=== PATIENT | male | born 1980 | race Caucasian/White ===

== ENCOUNTER 2024-03-02 00:15 | Inpatient (IN) | payer OTHER ==
[2024-03-02] MEDS: LORazepam 2 MG/ML INJ IV STA ×3 (04:24→08:00)
[2024-03-02] MEDS: SODIUM CHLORIDE 0.9% 1,000 ML IV ONE (04:24)
[2024-03-02 05:03] LABS: ALT 85 U/L (4-49); AST 156 U/L (17-59); African American GFR (CKD) >90 (>60 ml/min/1.73 sqM); Albumin 4.2 g/dL (3.5-5.0); Alkaline Phosphatase 60 U/L (38-126); Anion Gap 7 mmol/L; Blood Urea Nitrogen 9 mg/dL (9-20); Calcium 8.7 mg/dL (8.4-10.2); Carbon Dioxide 27 mmol/L (22-30); Chloride 99 mmol/L (98-107); Glucose 90 mg/dL (74-99); Non-African American GFR(CKD) >90 (>60 ml/min/1.73 sqM); Potassium 3.1 mmol/L (3.5-5.1); Sodium 133 mmol/L (137-145); Total Bilirubin 1.3 mg/dL (0.2-1.3); Total Protein 7.1 g/dL (6.3-8.2)
[2024-03-02 05:22] LABS: Basophils % (A) 1 %; Eosinophils % (A) 1 %; HCT 36.9 % (39.0-53.0); HGB 12.3 gm/dL (13.0-17.5); Lymphocytes # (A) 1.2 k/uL (1.0-4.8); Lymphocytes % (A) 35 %; MCH 30.5 pg (25.0-35.0); MCHC 33.4 g/dL (31.0-37.0); MCV 91.4 fL (80.0-100.0); Mean Platelet Volume 11.3; Monocytes # (A) 0.4 k/uL (0-1.0); Monocytes % (A) 12 %; Neutrophils # (A) 1.8 k/uL (1.3-7.7); Neutrophils % (A) 49 %; RBC 4.04 m/uL (4.30-5.90); RDW 15.8 % (11.5-15.5); WBC 3.6 k/uL (3.8-10.6)
[2024-03-02 05:57] LABS: Platelet Count 64 k/uL (150-450); Tear Drop Cells Present
--- NOTE | 2024-03-02 06:42 | ED ---
General Adult HPI - General Chief complaint: Psychiatric Symptoms Stated complaint: Hallucinations Time Seen by Provider: 03/02/24 02:44 Source: patient Mode of arrival: EMS Limitations: no limitations - History of Present Illness Initial comments: Patient is a 43-year-old man who is sent here to from [facility] to have evaluation for hallucinations. The patient is reportedly talking to people who are not present in the room. He reportedly saw a bear who he felt was attacking staff at the other facility. The patient had been drinking up to 16 beers a day and also a pint of alcohol. He is now day 3 after stopping drinking. The patient had reportedly been given 12 mg of Ativan over the course of the day but continued to have hallucinations. On arrival here the patient denying headache. No chest pain or dyspnea. No tarry or dark stools. Onset/Timin -: days(s) Severity scale (1-10): 0 Consistency: intermittent Improves with: none Worsens with: none Associated Symptoms: denies other symptoms Treatments Prior to Arrival: other (Ativan) - Related Data Home Medications Medication Instructions Recorded Confirmed Acetaminophen Tab [Tylenol] 650 mg PO Q4H PRN 03/02/24 03/02/24 Calcium, Magnesium, Zinc, With 1 tab PO TID PRN 03/02/24 03/02/24 Vitamin D3 Chlorpheniramine Maleate 4 mg PO Q4H PRN 03/02/24 03/02/24 [Chlor-Trimeton] Cholecalciferol (Vitamin D3) 1,250 mcg PO Q7D 03/02/24 03/02/24 [Decara (50,000 Iu)] Hyoscyamine Sulfate [Levsin] 0.125 mg PO QID PRN 03/02/24 03/02/24 Ibuprofen [Motrin Ib] 600 mg PO Q6H PRN 03/02/24 03/02/24 Loperamide HCl [Imodium A-D] 4 mg PO QID PRN MDD 16 mg 03/02/24 03/02/24 Melatonin 10 mg PO HS 03/02/24 03/02/24 Omeprazole 20 mg PO BID PRN 03/02/24 03/02/24 Primidone [Mysoline] 50 mg PO DAILY 03/02/24 03/02/24 SUMAtriptan succinate [Imitrex] 100 mg PO BID PRN MDD 200 mg 03/02/24 03/02/24 levETIRAcetam [Keppra] 750 mg PO BID 03/02/24 03/02/24 ondansetron HCL [Zofran] 8 mg PO Q6H PRN 03/02/24 03/02/24 Previous Rx's Medication Instructions Recorded Escitalopram [Lexapro] 10 mg PO DAILY #30 tab 03/12/24 Metoprolol Tartrate [Lopressor] 25 mg PO BID #60 tab 03/12/24 Nicotine 21Mg/24Hr Patch [Habitrol] 1 patch TRANSDERM DAILY patch 03/12/24 QUEtiapine [SEROquel] 25 mg PO HS #30 tab 03/12/24 Thiamine [Vitamin B-1] 100 mg PO BID #60 tab 03/12/24 cloNIDine HCL [Catapres] 0.1 mg PO BID #60 tab 03/12/24 Allergies Allergy/AdvReac Type Severity Reaction Status Date / Time No Known Allergies Allergy Verified 03/02/24 09:16 Review of Systems ROS Statement: Those systems with pertinent positive or pertinent negative responses have been documented in the HPI. ROS Other: All systems not noted in ROS Statement are negative. Constitutional: Denies: fever, chills, weakness Eyes: Denies: vision change Respiratory: Denies: cough, dyspnea Cardiovascular: Denies: chest pain, palpitations, edema, syncope Gastrointestinal: Denies: abdominal pain, vomiting, diarrhea, melena Genitourinary: Denies: dysuria, hematuria Musculoskeletal: Denies: back pain Skin: Denies: rash Neurological: Reports: confusion. Denies: headache, weakness Psychiatric: Reports: auditory hallucinations, visual hallucinations General Exam Limitations: no limitations General appearance: alert, in no apparent distress Head exam: Present: atraumatic, normocephalic Eye exam: Present: normal appearance, EOMI. Absent: scleral icterus, conjunctival injection ENT exam: Present: normal oropharynx Neck exam: Present: normal inspection Respiratory exam: Present: normal lung sounds bilaterally. Absent: respiratory distress, wheezes, rales, rhonchi, stridor, accessory muscle use Cardiovascular Exam: Present: regular rate, normal rhythm, normal heart sounds. Absent: diastolic murmur, rubs, gallop GI/Abdominal exam: Present: soft. Absent: distended, tenderness, guarding, rebound, rigid, mass Extremities exam: Present: normal inspection, normal capillary refill. Absent: pedal edema, calf tenderness Back exam: Present: normal inspection Neurological exam: Present: alert. Absent: motor sensory deficit Skin exam: Present: warm, dry, intact, normal color. Absent: rash Course Vital Signs 03/02/24 03/02/24 03/02/24 00:17 05:12 08:00 Temperature 98.4 F Pulse Rate 84 59 L 69 Respiratory 18 22 17 Rate Blood Pressure 142/104 155/89 133/93 O2 Sat by Pulse 98 98 97 Oximetry Medical Decision Making - Medical Decision Making Patient is 43-year-old man who is here with alcohol withdrawal and early delirium tremens. He is given Ativan on arrival. I did reassess the patient and he is continue to have hallucinations and is tremulous and hypertensive. In light of this patient will be admitted to have further medical management of delirium tremens. Was pt. sent in by a medical professional or institution (, PA, NEUROSURGERY SPINE PHYSICIAN, urgent care, hospital, or senior care...) When possible be specific @ -Yes patient is sent from [facility] to have evaluation of DTs symptoms Did you speak to anyone other than the patient for history (EMS, parent, family, police, friend...)? What history was obtained from this source @ -[No] Did you review nursing and triage notes (agree or disagree)? Why? @ -[I reviewed and agree with nursing and triage notes] Were old charts reviewed (outside hosp., previous admission, EMS record, old EKG, old radiological studies, urgent care reports/EKG's, senior care records)? Report findings @ -[No old charts were reviewed] Differential Diagnosis (chest pain, altered mental status, abdominal pain women, abdominal pain men, vaginal bleeding, weakness, fever, dyspnea, syncope, headache, dizziness, GI bleed, back pain, seizure, CVA, palpatations, mental health, musculoskeletal)? @ -[Differential Mental Health Depression, anxiety, bipolar, psychosis, schizophrenia, borderline personality, situational depression, adjustment disorder, behavioral disorder, brain tumor, malingering, substance abuse, encephalopathy, medication reaction, dementia, hypothyroidism, degenerative neurologic disorder, lupus.... This is not meant to be all-inclusive list EKG interpreted by me (3pts min.). @ -[As above] X-rays interpreted by me (1pt min.). @ -[None done] CT interpreted by me (1pt min.). @ -[None done] U/S interpreted by me (1pt. min.). @ -[None done] What testing was considered but not performed or refused? (CT, X-rays, U/S, labs)? Why? @ -[None] What meds were considered but not given or refused? Why? @ -[None] Did you discuss the management of the patient with other professionals (pro fessionals i.e. , PA, NEUROSURGERY SPINE PHYSICIAN, lab, RT, psych nurse, social media assistant, dairy laboratory technician, teacher, fire prevention officer, manager case)? Give summary @ -[No] Was smoking cessation discussed for >3mins.? @ -[No] Was critical care preformed (if so, how long)? @ -[No] Were there social determinants of health that impacted care today? How? (Homelessness, low income, unemployed, alcoholism, drug addiction, transportation, low edu. Level, literacy, decrease access to med. care, skilled nursing, rehab)? @ -[No] Was there de-escalation of care discussed even if they declined (Discuss DNR or withdrawal of care, Hospice)? DNR status @ -[No] What co-morbidities impacted this encounter? (DM, HTN, Smoking, COPD, CAD, Cancer, CVA, ARF, Chemo, Hep., AIDS, mental health diagnosis, sleep apnea, morbid obesity)? @ -[None] Was patient admitted / discharged? Hospital course, mention meds given and route, prescriptions, significant lab abnormalities, going to OR and other pertinent info. @ -[As above Undiagnosed new problem with uncertain prognosis? @ -[No] Drug Therapy requiring intensive monitoring for toxicity (Heparin, Nitro, Insulin, Cardizem)? @ -[No] Were any procedures done? @ -[No] Diagnosis/symptom? @ -[Acute alcohol withdrawal Acute, or Chronic, or Acute on Chronic? @ -[Acute Uncomplicated (without systemic symptoms) or Complicated (systemic symptoms)? @ -[Complicated by mental status change Side effects of treatment? @ -[No] Exacerbation, Progression, or Severe Exacerbation? @ -[No] Poses a threat to life or bodily function? How? (Chest pain, [place], [place], pneumonia, PE, COPD, DKA, ARF, appy, cholecystitis, CVA, Diverticulitis, Homicidal, Suicidal, threat to staff... and all critical care pts) @ -[Yes there is significant risk of morbidity and mortality associated with delirium tremens - Lab Data Result diagrams: 03/12/24 07:10 03/12/24 07:10 Lab Results 03/02/24 03/02/24 03/02/24 Range/Units 04:27 04:27 04:27 WBC 3.6 L (3.8-10.6) k/uL RBC 4.04 L (4.30-5.90) m/uL Hgb 12.3 L (13.0-17.5) gm/dL Hct 36.9 L (39.0-53.0) % MCV 91.4 (80.0-100.0) fL MCH 30.5 (25.0-35.0) pg MCHC 33.4 (31.0-37.0) g/dL RDW 15.8 H (11.5-15.5) % Plt Count 64 L (150-450) k/uL MPV 11.3 Neutrophils % 49 % Lymphocytes % 35 % Monocytes % 12 % Eosinophils % 1 % Basophils % 1 % Neutrophils # 1.8 (1.3-7.7) k/uL Lymphocytes # 1.2 (1.0-4.8) k/uL Monocytes # 0.4 (0-1.0) k/uL Eosinophils # 0.0 (0-0.7) k/uL Basophils # 0.0 (0-0.2) k/uL Manual Slide Review Performed Tear Drop Cells Present Sodium 133 L (137-145) mmol/L Potassium 3.1 L (3.5-5.1) mmol/L Chloride 99 (98-107) mmol/L Carbon Dioxide 27 (22-30) mmol/L Anion Gap 7 mmol/L BUN 9 (9-20) mg/dL Creatinine 0.39 L (0.66-1.25) mg/dL Est GFR (CKD-EPI)AfAm >90 (>60 ml/min/1.73 sqM) Est GFR (CKD-EPI)NonAf >90 (>60 ml/min/1.73 sqM) Glucose 90 (74-99) mg/dL Plasma Lactic Acid Macho 0.7 (0.7-2.0) mmol/L Calcium 8.7 (8.4-10.2) mg/dL Magnesium 1.0 L (1.6-2.3) mg/dL Total Bilirubin 1.3 (0.2-1.3) mg/dL AST 156 H (17-59) U/L ALT 85 H (4-49) U/L Alkaline Phosphatase 60 (38-126) U/L Total Protein 7.1 (6.3-8.2) g/dL Albumin 4.2 (3.5-5.0) g/dL Disposition Clinical Impression: Alcohol withdrawal Disposition: ADMITTED IP TO THIS HOSP Condition: Fair Is patient prescribed a controlled substance at d/c from ED?: No
[2024-03-02] MEDS ORDERED: NALOXONE 0.4 MG/ML 1 ML VIAL IV PRN (06:53)
[2024-03-02] MEDS ORDERED: ONDANSETRON 4 MG/2 ML VIAL IVP PRN (06:53)
[2024-03-02] MEDS: LORazepam 2 MG/ML INJ IV PRN ×2 (10:18→13:23)
[2024-03-02] MEDS: MAGNESIUM SULFATE-D5W PMX 1 GM in DEXTROSE/WATER 1 100ML.BAG IVPB SCH (12:38)
--- NOTE | 2024-03-02 13:23 | P.HPIM ---
History of Present Illness H&P Date: 03/02/24 History of present illness; patient is 43 years old gentleman past medical history significant for alcohol abuse who was sent into ER from [place] for hallucinations. Patient drinks up to 16 beers per day and has been without alcohol for the last 3 days. Patient was being evaluated at [place] and was receiving Ativan in the ER. Patient has been seen talking to people who were not there. Patient also reported that there was a beer attacking a person. There was no complaint suicidal thoughts. No complaint of nausea, vomiting abdominal pain. Denies any chest pain or shortness of breath. Because of the symptoms, patient was transferred to ER Initial lab work done in the ER showed WBC 3.6, hemoglobin 12.3, platelet count 64, sodium 133, potassium 3.1, chloride 99, carbon is a 27, anion gap 7, creatinine 0.39, glucose 90, magnesium 1 Patient admitted to internal medicine service REVIEW OF SYSTEMS: Review of system cannot be obtained as patient is very confused PHYSICAL EXAMINATION: GENERAL: The patient is alert to self, gets agitated easily, not in any acute distress. Very shaky HEENT: Pupils are round and equally reacting to light. EOMI. No scleral icterus. No conjunctival pallor. Normocephalic, atraumatic. No pharyngeal erythema. No thyromegaly. CARDIOVASCULAR: S1 and S2 present. No murmurs, rubs, or gallops. PULMONARY: Chest is clear to auscultation, no wheezing or crackles. ABDOMEN: Soft, nontender, nondistended, normoactive bowel sounds. No palpable organomegaly. MUSCULOSKELETAL: No joint swelling or deformity. EXTREMITIES: No cyanosis, clubbing, or pedal edema. NEUROLOGICAL: Gross neurological examination did not reveal any focal deficits. SKIN: No rashes. Assessment and plan Alcohol abuse Impending DTs Alcohol detox Hypomagnesemia Hyponatremia Hypokalemia Thrombocytopenia Acute transaminitis Monitor vital signs Monitor CBC Monitor CMP Continue telemetry monitoring Replace potassium Replace magnesium Continue high-dose thiamine and folic acid Continue CIWA protocol Consult psychiatry If patient CIWA scores worsen outpatient requirement of Ativan increases drastically, will consult ICU for alcohol detox Labs and medication were reviewed.. Continue same treatment. Continue with symptomatic treatment. Resume home medication. Monitor labs and vitals. DVT and GI prophylaxis. Further recommendations as per clinical course of the patient Dictation was produced using dragon dictation software. please excuse any grammatical, word or spelling errors. Medications and Allergies Home Medications Medication Instructions Recorded Confirmed Type Acetaminophen Tab [Tylenol] 650 mg PO Q4H PRN 03/02/24 03/02/24 History Calcium, Magnesium, Zinc, With 1 tab PO TID PRN 03/02/24 03/02/24 History Vitamin D3 Chlorpheniramine Maleate 4 mg PO Q4H PRN 03/02/24 03/02/24 History [Chlor-Trimeton] Cholecalciferol (Vitamin D3) 1,250 mcg PO Q7D 03/02/24 03/02/24 History [Decara (50,000 Iu)] Escitalopram [Lexapro] 10 mg PO DAILY 03/02/24 03/02/24 History Hyoscyamine Sulfate [Levsin] 0.125 mg PO QID PRN 03/02/24 03/02/24 History Ibuprofen [Motrin Ib] 600 mg PO Q6H PRN 03/02/24 03/02/24 History LORazepam [Ativan] 1 - 2 mg PO DIRECTED 03/02/24 03/02/24 History Loperamide HCl [Imodium A-D] 4 mg PO QID PRN MDD 16 mg 03/02/24 03/02/24 History Melatonin 10 mg PO HS 03/02/24 03/02/24 History Omeprazole 20 mg PO BID PRN 03/02/24 03/02/24 History Primidone [Mysoline] 50 mg PO DAILY 03/02/24 03/02/24 History SUMAtriptan succinate [Imitrex] 100 mg PO BID PRN MDD 200 mg 03/02/24 03/02/24 History cloNIDine HCL [Catapres] 0.1 - 0.3 mg PO Q4H PRN 03/02/24 03/02/24 History levETIRAcetam [Keppra] 750 mg PO BID 03/02/24 03/02/24 History ondansetron HCL [Zofran] 8 mg PO Q6H PRN 03/02/24 03/02/24 History Allergies Allergy/AdvReac Type Severity Reaction Status Date / Time No Known Allergies Allergy Verified 03/02/24 09:16 Physical Exam Vitals: Vital Signs Temp Pulse Pulse Resp BP BP Pulse Ox 03/02/24 08:53 97.7 F 82 18 148/93 99 03/02/24 08:00 69 17 133/93 97 03/02/24 05:12 59 L 22 155/89 98 03/02/24 00:17 98.4 F 84 18 142/104 98 Intake and Output 03/01/24 03/02/24 03/02/24 22:59 06:59 14:59 Other: Weight 71.668 kg Results CBC & Chem 7: 03/02/24 04:27 03/02/24 04:27 Labs: Abnormal Lab Results - Last 24 Hours (Table) 03/02/24 03/02/24 Range/Units 04:27 04:27 WBC 3.6 L (3.8-10.6) k/uL RBC 4.04 L (4.30-5.90) m/uL Hgb 12.3 L (13.0-17.5) gm/dL Hct 36.9 L (39.0-53.0) % RDW 15.8 H (11.5-15.5) % Plt Count 64 L (150-450) k/uL Sodium 133 L (137-145) mmol/L Potassium 3.1 L (3.5-5.1) mmol/L Creatinine 0.39 L (0.66-1.25) mg/dL Magnesium 1.0 L (1.6-2.3) mg/dL AST 156 H (17-59) U/L ALT 85 H (4-49) U/L
[2024-03-02] MEDS ORDERED: Potassium Replacement Protocol 1 EACH MISC MISCELLANE PRN (14:20)
[2024-03-02] MEDS: DEXMEDETOMIDINE/0.9% NACL(PMX) 400 MCG in EMPTY BAG 1 BAG IV SCH (14:22)
[2024-03-02] MEDS: SODIUM CHLORIDE 0.9% 1,000 ML IV SCH (14:24)
[2024-03-02 14:25] LABS: Glucose,Whole Blood 100 mg/dL (70-110)
[2024-03-02] MEDS: POTASSIUM CHLORIDE ER 20 MEQ TAB.ER PO SCH (14:41)
[2024-03-02] MEDS: MIDAZOLAM 1 MG/ML 5 ML VIAL IV STA ×2 (15:40→21:58)
[2024-03-02] MEDS: MIDAZOLAM HCL 50 MG in SODIUM CHLORIDE 0.9% 40 ML IV SCH (15:51)
--- NOTE | 2024-03-02 15:54 | P.CNPUL ---
History of Present Illness Consult date: 03/02/24 Chief complaint: altered mental status History of present illness: This is a 43-year-old male patient got transferred to the intensive care unit because of alcohol withdrawal and active delirium tremens. The patient has history of alcoholism and the patient was sent to our emergency department from [place] for ongoing hallucinations. The patient drinks approximately 16 beers on a daily basis and he has been without alcohol for the past 3 days. The patient was receiving Ativan in the emergency department. The patient was talking to individuals were not present. He was actively hallucinating. At times, he was also being agitated. Initially was admitted to the medical floor. He received more than 10 mg of IV Ativan. Following that, due to aggressive behavior and agitation, he was transferred to the intensive care unit and the patient was started on Precedex. His respiratory status is stable and the patient's pulse ox 99% on room air oxygen. The patient remains somewhat agitated. Sitter is at the bedside. Blood pressure is stable, in fact the patient is slightly hypertensive in the has no signs of any significant respiratory distress. The white cell count is at 3.6 and hemoglobin 4.3 and a platelet count of 64. BUN is at 9 with a creatinine of 0.3 and sodium levels at 130. Potassium level of 3.1. LFTs are abnormal consistent with alcoholic liver disease with an AST of 156 and ALT of 85. Normal bilirubin at 1.3. Albumin is at 4.2. The patient is currently in the intensive care unit on Precedex. He is on IV fluids. He is on thiamine. Review of Systems ROS unobtainable: due to mental status Medications and Allergies Home Medications Medication Instructions Recorded Confirmed Type Acetaminophen Tab [Tylenol] 650 mg PO Q4H PRN 03/02/24 03/02/24 History Calcium, Magnesium, Zinc, With 1 tab PO TID PRN 03/02/24 03/02/24 History Vitamin D3 Chlorpheniramine Maleate 4 mg PO Q4H PRN 03/02/24 03/02/24 History [Chlor-Trimeton] Cholecalciferol (Vitamin D3) 1,250 mcg PO Q7D 03/02/24 03/02/24 History [Decara (50,000 Iu)] Escitalopram [Lexapro] 10 mg PO DAILY 03/02/24 03/02/24 History Hyoscyamine Sulfate [Levsin] 0.125 mg PO QID PRN 03/02/24 03/02/24 History Ibuprofen [Motrin Ib] 600 mg PO Q6H PRN 03/02/24 03/02/24 History LORazepam [Ativan] 1 - 2 mg PO DIRECTED 03/02/24 03/02/24 History Loperamide HCl [Imodium A-D] 4 mg PO QID PRN MDD 16 mg 03/02/24 03/02/24 History Melatonin 10 mg PO HS 03/02/24 03/02/24 History Omeprazole 20 mg PO BID PRN 03/02/24 03/02/24 History Primidone [Mysoline] 50 mg PO DAILY 03/02/24 03/02/24 History SUMAtriptan succinate [Imitrex] 100 mg PO BID PRN MDD 200 mg 03/02/24 03/02/24 History cloNIDine HCL [Catapres] 0.1 - 0.3 mg PO Q4H PRN 03/02/24 03/02/24 History levETIRAcetam [Keppra] 750 mg PO BID 03/02/24 03/02/24 History ondansetron HCL [Zofran] 8 mg PO Q6H PRN 03/02/24 03/02/24 History Allergies Allergy/AdvReac Type Severity Reaction Status Date / Time No Known Allergies Allergy Verified 03/02/24 09:16 Physical Exam Vitals: Vital Signs Temp Pulse Pulse Resp BP BP Pulse Ox 03/02/24 15:00 97.0 F L 70 24 169/107 99 03/02/24 14:45 81 23 148/101 90 L 03/02/24 14:30 68 18 148/101 03/02/24 14:21 99 03/02/24 08:53 97.7 F 82 18 148/93 99 03/02/24 08:00 69 17 133/93 97 03/02/24 05:12 59 L 22 155/89 98 03/02/24 00:17 98.4 F 84 18 142/104 98 Intake and Output 03/02/24 03/02/24 03/02/24 06:59 14:59 22:59 Intake Total 2.897 27.018 Output Total 100 Balance -97.103 27.018 Intake: IV 20 Sodium Chloride 0.9% 1, 20 000 ml @ 20 mls/hr IV . Q24H [facility] Rx#:[id number] Intake, IV Titration 2.897 7.018 Amount Dexmedetomidine/0.9% NaCl 2.897 7.018 (Pmx) 400 mcg In Empty Bag 1 bag @ 0.2 MCG/KG/HR 3.583 mls/hr IV .Q24H [facility] Rx#:[id number] Output: Urine 100 Other: Weight 71.668 kg GENERAL: The patient is alert to self, agitated, not in any acute distress. Very shaky, in active DT Head exam was generally normal. There was no scleral icterus or corneal arcus. Mucous membranes were moist. HEENT: Pupils are round and equally reacting to light. EOMI. No scleral icterus. No conjunctival pallor. Normocephalic, atraumatic. No pharyngeal erythema. No thyromegaly. CARDIOVASCULAR: S1 and S2 present. No murmurs, rubs, or gallops. PULMONARY: Chest is clear to auscultation, no wheezing or crackles. ABDOMEN: Soft, nontender, nondistended, normoactive bowel sounds. No palpable organomegaly. MUSCULOSKELETAL: No joint swelling or deformity. EXTREMITIES: No cyanosis, clubbing, or pedal edema. NEUROLOGICAL: Gross neurological examination did not reveal any focal deficits. Encephalopathic and agitated and tremulous Examination of the skin revealed no evidence of significant rashes, suspicious appearing nevi or other concerning lesions. Results - Laboratory Findings CBC and BMP: 03/02/24 04:27 03/02/24 04:27 Abnormal lab findings: Abnormal Labs 03/02/24 03/02/24 04:27 04:27 WBC 3.6 L RBC 4.04 L Hgb 12.3 L Hct 36.9 L RDW 15.8 H Plt Count 64 L Sodium 133 L Potassium 3.1 L Creatinine 0.39 L Magnesium 1.0 L AST 156 H ALT 85 H Assessment and Plan Plan: Acute on acute delirium tremens with significant agitation, not responsive to benzodiazepines. The patient got transferred to the intensive care unit the patient is currently on Precedex drip which is being titrated. May also need Versed drip. May require intubation mechanical ventilation for airway protection should he require higher dose of sedatives. Alcoholism Chronic thrombocytopenia related to alcoholism Electrolyte imbalance secondary to alcoholism Liver dysfunction secondary to alcoholism History of depression maintained on Lexapro History of seizure disorder, could be alcoholic seizures maintained on Keppra Hypertension Patient was undergoing rehabilitation at [facility] Monitor mental status very closely. Continue with Precedex Make utilize Versed drip if agitation continues. Sitter at the bedside May require intubation mechanical ventilation based on his response to the above-mentioned medication. He is advanced to clear respiratory secretions and airways will be closely monitored while the patient receiving higher dose of sedatives. Replace electrolytes Compression devices lower extremities IV Protonix IV fluids with normal saline at rate of 100 cc an hour Obtain a baseline chest x-ray Keep the patient n.p.o. for now Thiamine Will follow Time with Patient: Greater than 30
[2024-03-02] MEDS: THIAMINE 500 MG in SODIUM CHLORIDE 0.9% 50 ML IVPB SCH (16:59)
[2024-03-02] MEDS: POTASSIUM CHLORIDE 20 MEQ in WATER FOR INJECTION 1 100ML.BAG IVPB STA (16:59)
[2024-03-02 21:54] LABS: Magnesium 2.2 mg/dL (1.6-2.3); Potassium 3.6 mmol/L (3.5-5.1)
[2024-03-02] MEDS: levETIRAcetam IV 500 MG/5 ML VIAL IVP SCH (22:43)
[2024-03-03] MEDS ORDERED: Potassium Replacement Protocol 1 EACH MISC MISCELLANE PRN ×2 (00:15→06:37)
[2024-03-03] MEDS: POTASSIUM CHLORIDE 10 MEQ in WATER FOR INJECTION 1 100ML.BAG IVPB SCH (01:21)
[2024-03-03 02:47] LABS: ABG Base Excess -1.1 mmol/L; ABG HCO3 23 mmol/L (21-25); ABG Oxygen Saturation 100.6 % (94-97); ABG PCO2 33 mmHg (35-45); ABG PH 7.44 (7.35-7.45); ABG TCO2 24 mmol/L (19-24); Allen Test Performed? Yes
[2024-03-03 03:00] LABS: ABG PO2 >420 mmHg (83-108)
[2024-03-03] MEDS: propofoL 100 ML IV ONE (05:09)
[2024-03-03 05:27] LABS: Glucose,Whole Blood 86 mg/dL (70-110)
[2024-03-03 05:36] LABS: ABG Base Excess -2.2 mmol/L; ABG HCO3 22 mmol/L (21-25); ABG Oxygen Saturation 100.3 % (94-97); ABG PCO2 33 mmHg (35-45); ABG PH 7.42 (7.35-7.45); ABG PO2 273 mmHg (83-108); ABG TCO2 23 mmol/L (19-24); Allen Test Performed? Yes
--- NOTE | 2024-03-03 05:47 | XR ---
EXAM: XR Chest, 1 View CLINICAL HISTORY: ITS.REASON XR Reason: Tube placement TECHNIQUE: Frontal view of the chest. COMPARISON: No relevant prior studies available. FINDINGS: Lungs: Unremarkable. No consolidation. Pleural space: Unremarkable. Mediastinum: Unremarkable. Normal mediastinal contour. Bones/joints: No acute findings. Tubes, lines and devices: Tip of endotracheal tube is about 4 cm above the sumanth. Tip of enteric tube is in the fundus of the stomach. IMPRESSION: Supporting tubes are in place.
[2024-03-03 06:11] LABS: Basophils % (A) 1 %; Eosinophils % (A) 1 %; HGB 12.2 gm/dL (13.0-17.5); Lymphocytes % (A) 24 %; MCH 30.4 pg (25.0-35.0); MCHC 32.1 g/dL (31.0-37.0); MCV 94.7 fL (80.0-100.0); Mean Platelet Volume 10.9; Monocytes # (A) 0.4 k/uL (0-1.0); Monocytes % (A) 10 %; Neutrophils # (A) 2.7 k/uL (1.3-7.7); Neutrophils % (A) 63 %; Platelet Count 69 k/uL (150-450); RBC 4.01 m/uL (4.30-5.90); RDW 15.9 % (11.5-15.5); WBC 4.3 k/uL (3.8-10.6)
[2024-03-03 06:19] LABS: African American GFR (CKD) >90 (>60 ml/min/1.73 sqM); Anion Gap 10 mmol/L; Blood Urea Nitrogen 7 mg/dL (9-20); Calcium 8.5 mg/dL (8.4-10.2); Carbon Dioxide 19 mmol/L (22-30); Chloride 106 mmol/L (98-107); Glucose 80 mg/dL (74-99); Non-African American GFR(CKD) >90 (>60 ml/min/1.73 sqM); Potassium 3.3 mmol/L (3.5-5.1); Sodium 135 mmol/L (137-145)
[2024-03-03] MEDS: POTASSIUM BICARBONATE/CIT AC 20 MEQ TABLET.EFF NG-TUBE SCH (07:08)
[2024-03-03] MEDS ORDERED: THIAMINE 100 MG TAB PO SCH (09:00)
[2024-03-03] MEDS: LORazepam 2 MG/ML INJ IV PRN (09:06)
[2024-03-03] MEDS: CHLORHEXIDINE GLUCONATE 15 ML CUP MUCOUS MEM SCH (09:26)
[2024-03-03] MEDS: PANTOPRAZOLE 40 MG/10 ML VIAL IV SCH (09:27)
[2024-03-03] MEDS: ESCITALOPRAM 10 MG TAB PO SCH (09:27)
[2024-03-03 11:38] LABS: Glucose,Whole Blood 73 mg/dL (70-110)
--- NOTE | 2024-03-03 11:58 | P.PN ---
Subjective Progress Note Date: 03/03/24 This is a 43-year-old male patient got transferred to the intensive care unit because of alcohol withdrawal and active delirium tremens. The patient has history of alcoholism and the patient was sent to our emergency department from [place] for ongoing hallucinations. The patient drinks approximately 16 beers on a daily basis and he has been without alcohol for the past 3 days. The patient was receiving Ativan in the emergency department. The patient was talking to individuals were not present. He was actively hallucinating. At times, he was also being agitated. Initially was admitted to the medical floor. He received more than 10 mg of IV Ativan. Following that, due to aggressive b ehavior and agitation, he was transferred to the intensive care unit and the patient was started on Precedex. His respiratory status is stable and the patient's pulse ox 99% on room air oxygen. The patient remains somewhat agitated. Sitter is at the bedside. Blood pressure is stable, in fact the patient is slightly hypertensive in the has no signs of any significant respiratory distress. The white cell count is at 3.6 and hemoglobin 4.3 and a platelet count of 64. BUN is at 9 with a creatinine of 0.3 and sodium levels at 130. Potassium level of 3.1. LFTs are abnormal consistent with alcoholic liver disease with an AST of 156 and ALT of 85. Normal bilirubin at 1.3. Albumin is at 4.2. The patient is currently in the intensive care unit on Precedex. He is on IV fluids. He is on thiamine. On today's evaluation of 03/03/2024, the patient is being seen for a follow-up. Events from yesterday night were noted. The patient was started initially on Precedex drip. Subsequently Versed drip was added. Nevertheless, we are unable to control his agitation. He was extremely violent and uncontrollable. He was started on propofol and following that he was intubated placed on mechanical ventilator. This morning, the patient is on propofol which is running at 65 mcg/kg/min and Versed drip at 50 mg an hour. He is on normal saline at rate of 100 cc an hour. He is on assist-control of mode of mechanical ventilation at rate of 18, tidal volume of 450, FiO2 of 55% with a PEEP of 5. Blood gas showed a pH of 7.42 with a pCO2 of 33 and pO2 of 273 post intubation and according to the FiO2 was weaned down. Hemodynamically stable. White cell count of 4.3 with a hemoglobin 12.2, platelet count of 69, the electrolytes are stable with a potassium level of 3.3, bicarb is at 19, BUN is at 7 with a creatinine of 0.37., Comfortable on mechanical ventilator. Afebrile. Objective - Vital Signs Vital signs: Vital Signs Temp 97.5 F L 03/03/24 04:00 Pulse 62 03/03/24 07:15 Resp 18 03/03/24 07:15 BP 110/81 03/03/24 07:15 Pulse Ox 100 03/03/24 07:15 FiO2 35 03/03/24 08:13 Intake & Output 03/02/24 03/03/24 03/03/24 18:59 06:59 18:59 Intake Total 417.420 8327.959 180.126 Output Total 1400 395 22 Balance -019.288 0293.959 158.126 Weight 71.668 kg 69.1 kg Intake: IV 100 1300 100 Potassium Chloride 10 meq 200 In Water For Injection 1 100ml.bag @ 100 mls/hr IVPB Q1H [facility] Rx#: [id number] Sodium Chloride 0.9% 1, 100 1050 100 000 ml @ 100 mls/hr IV . Q10H [facility] Rx#:[id number] Thiamine 500 mg In Sodium 50 Chloride 0.9% 50 ml @ 100 mls/hr IVPB TID [facility] Rx#:[id number] Intake, IV Titration 321.609 196.959 80.126 Amount Dexmedetomidine/0.9% NaCl 71.609 (Pmx) 400 mcg In Empty Bag 1 bag @ 0.2 MCG/KG/HR 3.583 mls/hr IV .Q24H [facility] Rx#:[id number] Magnesium Sulfate-D5w Pmx 200 1 gm In Dextrose/Water 1 100ml.bag @ 100 mls/hr IVPB Q1H [facility] Rx#: [id number] Midazolam HCl 50 mg In 120.633 Sodium Chloride 0.9% 40 ml @ 5 MG/HR 5 mls/hr IV .Q10H [facility] Rx#:[id number] Thiamine 500 mg In Sodium 50 Chloride 0.9% 50 ml @ 100 mls/hr IVPB TID [facility] Rx#:[id number] propofoL 1,000 mg In 76.326 80.126 Empty Bag 1 bag @ 15 MCG/ KG/MIN 6.45 mls/hr IV . [id number] [facility] Rx#:[id number] Output: Urine 1400 395 22 Other: Voiding Method Indwelling Catheter ABP, PAP, CO, CI - Last Documented Arterial Blood Pressure 113/73 - Exam GENERAL: Sedated,, comfortable intubated on mechanical ventilator, orogastric and orotracheal tube both in place Head exam was generally normal. There was no scleral icterus or corneal arcus. Mucous membranes were moist. HEENT: Pupils are round and equally reacting to light. EOMI. No scleral icterus. No conjunctival pallor. Normocephalic, atraumatic. No pharyngeal erythema. No thyromegaly. CARDIOVASCULAR: S1 and S2 present. No murmurs, rubs, or gallops. PULMONARY: Chest is clear to auscultation, no wheezing or crackles. ABDOMEN: Soft, nontender, nondistended, normoactive bowel sounds. No palpable organomegaly. MUSCULOSKELETAL: No joint swelling or deformity. EXTREMITIES: No cyanosis, clubbing, or pedal edema. NEUROLOGICAL: Arousable upon stimulation and the patient is currently on a combination of propofol and Versed. No seizure activity. No tremors. Examination of the skin revealed no evidence of significant rashes, suspicious appearing nevi or other concerning lesions. - Labs CBC & Chem 7: 03/03/24 05:29 03/03/24 05:29 Labs: Abnormal Lab Results - Last 24 Hours (Table) 03/03/24 03/03/24 03/03/24 Range/Units 02:43 05:29 05:29 RBC 4.01 L (4.30-5.90) m/uL Hgb 12.2 L (13.0-17.5) gm/dL Hct 38.0 L (39.0-53.0) % RDW 15.9 H (11.5-15.5) % Plt Count 69 L (150-450) k/uL ABG pCO2 33 L (35-45) mmHg ABG pO2 >420 H (83-108) mmHg ABG O2 Saturation 100.6 H (94-97) % Sodium 135 L (137-145) mmol/L Potassium 3.3 L (3.5-5.1) mmol/L Carbon Dioxide 19 L (22-30) mmol/L BUN 7 L (9-20) mg/dL Creatinine 0.37 L (0.66-1.25) mg/dL 03/03/24 Range/Units 05:30 RBC (4.30-5.90) m/uL Hgb (13.0-17.5) gm/dL Hct (39.0-53.0) % RDW (11.5-15.5) % Plt Count (150-450) k/uL ABG pCO2 33 L (35-45) mmHg ABG pO2 273 H (83-108) mmHg ABG O2 Saturation 100.3 H (94-97) % Sodium (137-145) mmol/L Potassium (3.5-5.1) mmol/L Carbon Dioxide (22-30) mmol/L BUN (9-20) mg/dL Creatinine (0.66-1.25) mg/dL Assessment and Plan Plan: Acute on acute delirium tremens with significant agitation, not responsive to benzodiazepines and Precedex and the patient was started on propofol and Versed and intubated on mechanical ventilator Acute hypoxic respiratory failure secondary to utilization of sedative medications to control delirium tremens. Currently intubated on mechanical ventilator on propofol/Versed drip. Adequate oxygenation. Adequate ventilation. Chest x-ray is within normal limits. Alcoholism Chronic thrombocytopenia related to alcoholism Electrolyte imbalance secondary to alcoholism Liver dysfunction secondary to alcoholism History of depression maintained on Lexapro History of seizure disorder, could be alcoholic seizures maintained on Keppra Hypertension Patient was undergoing rehabilitation at [place] Plan Monitor mental status very closely. Continue with Versed and propofol drip Continue ventilator support Replace electrolytes Compression devices lower extremities IV Protonix IV fluids with normal saline at rate of 100 cc an hour Initiate enteral feeding for nutritional support Thiamine Will follow Critical care evaluation that was done more than 30 minutes. Working progress. Currently sedated and mechanically ventilated. Time with Patient: Greater than 30
--- NOTE | 2024-03-03 12:29 | P.PN ---
Subjective Progress Note Date: 03/03/24 patient is 43 years old gentleman past medical history significant for alcohol abuse who was sent into ER from [place] for hallucinations. Patient drinks up to 16 beers per day and has been without alcohol for the last 3 days. Patient was being evaluated at [place] and was receiving Ativan in the ER. Patient has been seen talking to people who were not there. Patient also reported that there was a beer attacking a person. There was no complaint suicidal thoughts. No complaint of nausea, vomiting abdominal pain. Denies any chest pain or shortness of breath. Because of the symptoms, patient was transferred to ER Initial lab work done in the ER showed WBC 3.6, hemoglobin 12.3, platelet count 64, sodium 133, potassium 3.1, chloride 99, carbon is a 27, anion gap 7, creatinine 0.39, glucose 90, magnesium 1 Patient admitted to internal medicine service 03/03. Patient seen and examined. Patient was transferred to ICU yesterday and was later intubated secondary to increased agitation. Patient currently on propofol REVIEW OF SYSTEMS: Currently intubated and sedated PHYSICAL EXAMINATION: GENERAL: The patient is intubated HEENT: Pupils are round and equally reacting to light. EOMI. No scleral icterus. No conjunctival pallor. Normocephalic, atraumatic. No pharyngeal erythema. No thyromegaly. CARDIOVASCULAR: S1 and S2 present. No murmurs, rubs, or gallops. PULMONARY: Chest is clear to auscultation, no wheezing or crackles. ABDOMEN: Soft, nontender, nondistended, normoactive bowel sounds. No palpable organomegaly. MUSCULOSKELETAL: No joint swelling or deformity. EXTREMITIES: No cyanosis, clubbing, or pedal edema. NEUROLOGICAL: Intubated SKIN: No rashes. Assessment and plan Acute hypoxic admitted failure Alcohol abuse Impending DTs Alcohol detox Hypomagnesemia Hyponatremia Hypokalemia Thrombocytopenia Acute transaminitis Monitor vital signs Monitor CBC Monitor CMP Continue vent management per ICU Continue IV fluids Continue tube feeding Continue high-dose thiamine and folic acid Continue CIWA protocol ICU following Labs and medication were reviewed.. Continue same treatment. Continue with symptomatic treatment. Resume home medication. Monitor labs and vitals. DVT and GI prophylaxis. Further recommendations as per clinical course of the patient Dictation was produced using [employer] dictation software. please excuse any grammatical, word or spelling errors. Objective - Vital Signs Vital signs: Vital Signs Temp 98.2 F 03/03/24 08:00 Pulse 57 L 03/03/24 12:00 Resp 18 03/03/24 12:00 BP 145/108 03/03/24 12:00 Pulse Ox 100 03/03/24 12:00 FiO2 40 03/03/24 12:00 Intake & Output 03/02/24 03/03/24 03/03/24 18:59 06:59 18:59 Intake Total 607.073 5337.959 780.126 Output Total 1400 395 127 Balance -705.934 9162.959 653.126 Weight 71.668 kg 69.1 kg Intake: IV 100 1300 550 Potassium Chloride 10 meq 200 In Water For Injection 1 100ml.bag @ 100 mls/hr IVPB Q1H [facility] Rx#: [id number] Sodium Chloride 0.9% 1, 100 1050 500 000 ml @ 100 mls/hr IV . Q10H [facility] Rx#:[id number] Thiamine 500 mg In Sodium 50 50 Chloride 0.9% 50 ml @ 100 mls/hr IVPB TID [facility] Rx#:[id number] Intake, IV Titration 321.609 196.959 230.126 Amount Dexmedetomidine/0.9% NaCl 71.609 (Pmx) 400 mcg In Empty Bag 1 bag @ 0.2 MCG/KG/HR 3.583 mls/hr IV .Q24H [facility] Rx#:[id number] Magnesium Sulfate-D5w Pmx 200 1 gm In Dextrose/Water 1 100ml.bag @ 100 mls/hr IVPB Q1H [facility] Rx#: [id number] Midazolam HCl 50 mg In 120.633 50.000 Sodium Chloride 0.9% 40 ml @ 5 MG/HR 5 mls/hr IV .Q10H [facility] Rx#:[id number] Thiamine 500 mg In Sodium 50 Chloride 0.9% 50 ml @ 100 mls/hr IVPB TID [facility] Rx#:[id number] propofoL 1,000 mg In 76.326 180.126 Empty Bag 1 bag @ 15 MCG/ KG/MIN 6.45 mls/hr IV . [id number] [facility] Rx#:[id number] Output: Urine 1400 395 127 Other: Voiding Method Indwelling Catheter Indwelling Catheter ABP, PAP, CO, CI - Last Documented Arterial Blood Pressure 163/98 - Labs CBC & Chem 7: 03/03/24 05:29 03/03/24 05:29 Labs: Abnormal Lab Results - Last 24 Hours (Table) 03/03/24 03/03/24 03/03/24 Range/Units 02:43 05:29 05:29 RBC 4.01 L (4.30-5.90) m/uL Hgb 12.2 L (13.0-17.5) gm/dL Hct 38.0 L (39.0-53.0) % RDW 15.9 H (11.5-15.5) % Plt Count 69 L (150-450) k/uL ABG pCO2 33 L (35-45) mmHg ABG pO2 >420 H (83-108) mmHg ABG O2 Saturation 100.6 H (94-97) % Sodium 135 L (137-145) mmol/L Potassium 3.3 L (3.5-5.1) mmol/L Carbon Dioxide 19 L (22-30) mmol/L BUN 7 L (9-20) mg/dL Creatinine 0.37 L (0.66-1.25) mg/dL 03/03/24 Range/Units 05:30 RBC (4.30-5.90) m/uL Hgb (13.0-17.5) gm/dL Hct (39.0-53.0) % RDW (11.5-15.5) % Plt Count (150-450) k/uL ABG pCO2 33 L (35-45) mmHg ABG pO2 273 H (83-108) mmHg ABG O2 Saturation 100.3 H (94-97) % Sodium (137-145) mmol/L Potassium (3.5-5.1) mmol/L Carbon Dioxide (22-30) mmol/L BUN (9-20) mg/dL Creatinine (0.66-1.25) mg/dL
[2024-03-03] MEDS: hydrALAZINE HCL 20 MG/ML 1 ML VIAL IVP PRN (17:03)
[2024-03-03] MEDS: CISATRACURIUM 200 MG in SODIUM CHLORIDE 0.9% 180 ML IV SCH (18:03)
[2024-03-03 18:20] LABS: Glucose,Whole Blood 72 mg/dL (70-110)
[2024-03-03] MEDS: ARTIFICIAL TEARS-HYPROMELLOSE DROPS 15 ML BTL BOTH EYES SCH (21:53)
[2024-03-03] MEDS: MIDAZOLAM HCL 200 MG in SODIUM CHLORIDE 0.9% 60 ML IV SCH (22:50)
[2024-03-04 02:14] LABS: Glucose,Whole Blood 76 mg/dL (70-110)
[2024-03-04 04:47] LABS: Basophils % (A) 1 %; Eosinophils # (A) 0.1 k/uL (0-0.7); Eosinophils % (A) 2 %; HCT 37.6 % (39.0-53.0); Lymphocytes % (A) 25 %; MCH 29.9 pg (25.0-35.0); MCHC 31.9 g/dL (31.0-37.0); MCV 93.9 fL (80.0-100.0); Mean Platelet Volume 11.2; Monocytes # (A) 0.3 k/uL (0-1.0); Monocytes % (A) 9 %; Neutrophils # (A) 2.3 k/uL (1.3-7.7); Neutrophils % (A) 60 %; WBC 3.8 k/uL (3.8-10.6)
[2024-03-04 05:18] LABS: Platelet Count 70 k/uL (150-450)
[2024-03-04 05:29] LABS: ABG Base Excess -3.9 mmol/L; ABG HCO3 20 mmol/L (21-25); ABG Oxygen Saturation 99.2 % (94-97); ABG PCO2 32 mmHg (35-45); ABG PO2 134 mmHg (83-108); ABG TCO2 21 mmol/L (19-24); Allen Test Performed? Yes
[2024-03-04 05:54] LABS: African American GFR (CKD) >90 (>60 ml/min/1.73 sqM); Anion Gap 8 mmol/L; Blood Urea Nitrogen 2 mg/dL (9-20); Calcium 8.3 mg/dL (8.4-10.2); Carbon Dioxide 19 mmol/L (22-30); Chloride 110 mmol/L (98-107); Glucose 71 mg/dL (74-99); Non-African American GFR(CKD) >90 (>60 ml/min/1.73 sqM); Potassium 3.2 mmol/L (3.5-5.1); Sodium 137 mmol/L (137-145)
[2024-03-04] MEDS: POTASSIUM BICARBONATE/CIT AC 20 MEQ TABLET.EFF NG-TUBE SCH ×2 (07:02→15:52)
--- NOTE | 2024-03-04 07:37 | XR ---
EXAMINATION TYPE: XR chest 1V portable DATE OF EXAM: 03/04/2024 COMPARISON: 03/03/2024 INDICATION: Intubated difficulty breathing TECHNIQUE: Single frontal view of the chest is obtained. FINDINGS: The heart size is normal. The pulmonary vasculature is normal. The lungs are clear. Endotracheal tube tip is 6.5 cm above sumanth. Nasogastric tube tip is within the left upper quadrant of the abdomen IMPRESSION: 1. No acute pulmonary process. 2. Lines and catheters discussed above
[2024-03-04 08:08] LABS: Glucose,Whole Blood 77 mg/dL (70-110)
[2024-03-04] MEDS: DEXMEDETOMIDINE/0.9% NACL(PMX) 400 MCG in EMPTY BAG 1 BAG IV SCH (10:22)
[2024-03-04 11:55] LABS: Glucose,Whole Blood 74 mg/dL (70-110)
--- NOTE | 2024-03-04 12:51 | P.PN ---
Subjective Progress Note Date: 03/04/24 Principal diagnosis: Acute delirium tremens with severe agitation requiring intubation mechanical ventilation This is a 43-year-old male patient got transferred to the intensive care unit because of alcohol withdrawal and active delirium tremens. The patient has history of alcoholism and the patient was sent to our emergency department from [place] for ongoing hallucinations. The patient drinks approximately 16 beers on a daily basis and he has been without alcohol for the past 3 days. The patient was receiving Ativan in the emergency department. The patient was talking to individuals were not present. He was actively hallucinating. At times, he was also being agitated. Initially was admitted to the medical floor. He received more than 10 mg of IV Ativan. Following that, due to aggressive behavior and agitation, he was transferred to the intensive care unit and the patient was started on Precedex. His respiratory status is stable and the patient's pulse ox 99% on room air oxygen. The patient remains somewhat agitated. Sitter is at the bedside. Blood pressure is stable, in fact the patient is slightly hypertensive in the has no signs of any significant respiratory distress. The white cell count is at 3.6 and hemoglobin 4.3 and a platelet count of 64. BUN is at 9 with a creatinine of 0.3 and sodium levels at 130. Potassium level of 3.1. LFTs are abnormal consistent with alcoholic liver disease with an AST of 156 and ALT of 85. Normal bilirubin at 1.3. Albumin is at 4.2. The patient is currently in the intensive care unit on Precedex. He is on IV fluids. He is on thiamine. On today's evaluation of 03/03/2024, the patient is being seen for a follow-up. Events from yesterday night were noted. The patient was started initially on Precedex drip. Subsequently Versed drip was added. Nevertheless, we are unable to control his agitation. He was extremely violent and uncontrollable. He was started on propofol and following that he was intubated placed on mechanical ventilator. This morning, the patient is on propofol which is running at 65 mcg/kg/min and Versed drip at 50 mg an hour. He is on normal saline at rate of 100 cc an hour. He is on assist-control of mode of mechanical ventilation at rate of 18, tidal volume of 450, FiO2 of 55% with a PEEP of 5. Blood gas showed a pH of 7.42 with a pCO2 of 33 and pO2 of 273 post intubation and according to the FiO2 was weaned down. Hemodynamically stable. White cell count of 4.3 with a hemoglobin 12.2, platelet count of 69, the electrolytes are stable with a pota ssium level of 3.3, bicarb is at 19, BUN is at 7 with a creatinine of 0.37., Comfortable on mechanical ventilator. Afebrile. Reevaluated on 03/04/2024, patient remains in the ICU, intubated and mechanically ventilated. His vent settings are 18/450/35%/5 he is on assist-control mode of mechanical ventilation ABG showed a pO2 of 134 pCO2 32 pH of 7.40 patient is maintained on Nimbex he is also on Versed at 15 mg/h propofol at 65 mcg/kg/min IV fluid 0.9 normal saline at 100 cc/h. Patient is calm, completely sedated and paralyzed. However I plan to discontinue his Nimbex today, and hopefully maintain him calm on Versed and propofol based on the blood gas, I change his FiO2 to 30% instead of 35% chest x-ray showed no acute pulmonary process. WBC count is 3.8 hemoglobin is 12 electrolytes are normal except for low potassium of 3.2, renal profile is normal. Patient remains on the alcohol withdrawal protocol, remains on Keppra, plan to start enteral feeding/nutritional support today Objective - Vital Signs Vital signs: Vital Signs Temp 97.4 F L 03/04/24 08:00 Pulse 63 03/04/24 11:00 Resp 18 03/04/24 11:00 BP 113/69 03/04/24 11:00 Pulse Ox 100 03/04/24 11:00 FiO2 30 03/04/24 11:44 Intake & Output 03/03/24 03/04/24 03/04/24 18:59 06:59 18:59 Intake Total 2177.312 8819.18 927.883 Output Total 927 1070 405 Balance 915.749 561.18 522.883 Intake: IV 1350 1150 550 Sodium Chloride 0.9% 1, 1300 1100 500 000 ml @ 100 mls/hr IV . Q10H [facility] Rx#:[id number] Thiamine 500 mg In Sodium 50 50 50 Chloride 0.9% 50 ml @ 100 mls/hr IVPB TID [facility] Rx#:[id number] Intake, IV Titration 492.749 481.18 367.883 Amount Cisatracurium 200 mg In 5.527 181.18 199.008 Sodium Chloride 0.9% 180 ml @ 1 MCG/KG/MIN 4.146 mls/hr IV .Q24H [facility] Rx#: [id number] Midazolam HCl 200 mg In 68.875 Sodium Chloride 0.9% 60 ml @ 15 MG/HR 7.5 mls/hr IV .[id number] [facility] Rx#: [id number] Midazolam HCl 50 mg In 143.583 Sodium Chloride 0.9% 40 ml @ 5 MG/HR 5 mls/hr IV .Q10H [facility] Rx#:[id number] propofoL 1,000 mg In 343.639 300 100 Empty Bag 1 bag @ 15 MCG/ KG/MIN 6.45 mls/hr IV . [id number] [facility] Rx#:[id number] Tube Feeding 10 Output: Urine 927 1070 405 Other: Voiding Method Indwelling Catheter Indwelling Catheter Indwelling Catheter ABP, PAP, CO, CI - Last Documented Arterial Blood Pressure 125/74 - Exam GENERAL: Revealed 43-year-old white male intubated mechanically ventilated sedated and paralyzed on propofol Nimbex and on Versed Head: Atraumatic, normocephalic. HEENT: PERRLA, EOMI, nonicteric, moist mucous membranes. CARDIOVASCULAR: Normal S1-S2, no S3 gallop. PULMONARY: Diminished breath sound bilaterally no crackles rhonchi or wheezes ABDOMEN: Nontender no megaly no rebound soft, positive bowel sounds. MUSCULOSKELETAL: No deformities. EXTREMITIES: No clubbing no edema no cyanosis NEUROLOGICAL: Could not assess patient is sedated and paralyzed Psychiatric: Could not assess. Skin: No rash - Labs CBC & Chem 7: 03/04/24 04:10 03/04/24 04:10 Labs: Abnormal Lab Results - Last 24 Hours (Table) 03/04/24 03/04/24 03/04/24 Range/Units 04:10 04:10 05:26 RBC 4.00 L (4.30-5.90) m/uL Hgb 12.0 L (13.0-17.5) gm/dL Hct 37.6 L (39.0-53.0) % RDW 16.0 H (11.5-15.5) % Plt Count 70 L (150-450) k/uL ABG pCO2 32 L (35-45) mmHg ABG pO2 134 H (83-108) mmHg ABG HCO3 20 L (21-25) mmol/L ABG O2 Saturation 99.2 H (94-97) % Potassium 3.2 L (3.5-5.1) mmol/L Chloride 110 H (98-107) mmol/L Carbon Dioxide 19 L (22-30) mmol/L BUN 2 L (9-20) mg/dL Creatinine 0.29 L (0.66-1.25) mg/dL Glucose 71 L (74-99) mg/dL Calcium 8.3 L (8.4-10.2) mg/dL Microbiology - Last 24 Hours (Table) 03/03/24 03:08 Gram Stain - Preliminary Sputum Assessment and Plan Assessment: Impression: Acute delirium tremens requiring intubation mechanical ventilation. Alcoholism Chronic thrombocytopenia related to alcoholism Acute transaminitis secondary to alcoholism History of depression History of seizure disorder, maintained on Keppra Benign essential hypertension Recommendation: Continue ventilatory support Continue Versed and propofol, discontinue Nimbex today. Continue GI and DVT prophylaxis including IV Protonix and compression devices Nutritional support/enteral feeding Continue thiamine and alcohol withdrawal protocol Continue to monitor daily x-rays of the chest, Not ready for any weaning trials at this point, Will continue to follow Patient is critically ill, critical care time is over 30 Time with Patient: Greater than 30
--- NOTE | 2024-03-04 13:00 | P.PN ---
Subjective Progress Note Date: 03/04/24 patient is 43 years old gentleman past medical history significant for alcohol abuse who was sent into ER from [place] for hallucinations. Patient drinks up to 16 beers per day and has been without alcohol for the last 3 days. Patient was being evaluated at [facility] and was receiving Ativan in the ER. Patient has been seen talking to people who were not there. Patient also reported that there was a beer attacking a person. There was no complaint suicidal thoughts. No complaint of nausea, vomiting abdominal pain. Denies any chest pain or shortness of breath. Because of the symptoms, patient was transferred to ER Initial lab work done in the ER showed WBC 3.6, hemoglobin 12.3, platelet count 64, sodium 133, potassium 3.1, chloride 99, carbon is a 27, anion gap 7, creatinine 0.39, glucose 90, magnesium 1 Patient admitted to internal medicine service 03/03. Patient seen and examined. Patient was transferred to ICU yesterday and was later intubated secondary to increased agitation. Patient currently on propofol 03/04. Patient seen and examined.Blood work done this morning showed WBC 3.8, hemoglobin 12, platelet count 70, sodium 131, potassium 3.2, BUN 2, creatinine 0.29. Patient currently Nimbex drip REVIEW OF SYSTEMS: Currently intubated and sedated PHYSICAL EXAMINATION: GENERAL: The patient is intubated HEENT: Pupils are round and equally reacting to light. EOMI. No scleral icterus. No conjunctival pallor. Normocephalic, atraumatic. No pharyngeal erythema. No thyromegaly. CARDIOVASCULAR: S1 and S2 present. No murmurs, rubs, or gallops. PULMONARY: Chest is clear to auscultation, no wheezing or crackles. ABDOMEN: Soft, nontender, nondistended, normoactive bowel sounds. No palpable organomegaly. MUSCULOSKELETAL: No joint swelling or deformity. EXTREMITIES: No cyanosis, clubbing, or pedal edema. NEUROLOGICAL: Intubated SKIN: No rashes. Assessment and plan Acute hypoxic admitted failure Alcohol abuse Impending DTs Alcohol detox Hypomagnesemia Hyponatremia Hypokalemia Thrombocytopenia Acute transaminitis Monitor vital signs Monitor CBC Monitor CMP Continue vent management per ICU Continue Nimbex, Versed Continue tube feeding Continue high-dose thiamine and folic acid Continue CIWA protocol ICU following Labs and medication were reviewed.. Continue same treatment. Continue with symptomatic treatment. Resume home medication. Monitor labs and vitals. DVT and GI prophylaxis. Further recommendations as per clinical course of the patient Dictation was produced using [employer] dictation software. please excuse any grammatical, word or spelling errors. Objective - Vital Signs Vital signs: Vital Signs Temp 97.4 F L 03/04/24 08:00 Pulse 65 03/04/24 09:00 Resp 18 03/04/24 09:00 BP 119/84 03/04/24 09:00 Pulse Ox 100 03/04/24 09:00 FiO2 30 03/04/24 09:20 Intake & Output 03/03/24 03/04/24 03/04/24 18:59 06:59 18:59 Intake Total 9045.334 3796.18 528.496 Output Total 927 1070 205 Balance 915.749 561.18 323.496 Intake: IV 1350 1150 300 Sodium Chloride 0.9% 1, 1300 1100 300 000 ml @ 100 mls/hr IV . Q10H [facility] Rx#:[id number] Thiamine 500 mg In Sodium 50 50 Chloride 0.9% 50 ml @ 100 mls/hr IVPB TID [facility] Rx#:[id number] Intake, IV Titration 492.749 481.18 228.496 Amount Cisatracurium 200 mg In 5.527 181.18 159.621 Sodium Chloride 0.9% 180 ml @ 1 MCG/KG/MIN 4.146 mls/hr IV .Q24H [facility] Rx#: [id number] Midazolam HCl 200 mg In 68.875 Sodium Chloride 0.9% 60 ml @ 15 MG/HR 7.5 mls/hr IV .[id number] [facility] Rx#: [id number] Midazolam HCl 50 mg In 143.583 Sodium Chloride 0.9% 40 ml @ 5 MG/HR 5 mls/hr IV .Q10H [facility] Rx#:[id number] propofoL 1,000 mg In 343.639 300 Empty Bag 1 bag @ 15 MCG/ KG/MIN 6.45 mls/hr IV . [id number] [facility] Rx#:[id number] Output: Urine 927 1070 205 Other: Voiding Method Indwelling Catheter Indwelling Catheter ABP, PAP, CO, CI - Last Documented Arterial Blood Pressure 120/67 - Labs CBC & Chem 7: 03/04/24 04:10 03/04/24 04:10 Labs: Abnormal Lab Results - Last 24 Hours (Table) 03/04/24 03/04/24 03/04/24 Range/Units 04:10 04:10 05:26 RBC 4.00 L (4.30-5.90) m/uL Hgb 12.0 L (13.0-17.5) gm/dL Hct 37.6 L (39.0-53.0) % RDW 16.0 H (11.5-15.5) % Plt Count 70 L (150-450) k/uL ABG pCO2 32 L (35-45) mmHg ABG pO2 134 H (83-108) mmHg ABG HCO3 20 L (21-25) mmol/L ABG O2 Saturation 99.2 H (94-97) % Potassium 3.2 L (3.5-5.1) mmol/L Chloride 110 H (98-107) mmol/L Carbon Dioxide 19 L (22-30) mmol/L BUN 2 L (9-20) mg/dL Creatinine 0.29 L (0.66-1.25) mg/dL Glucose 71 L (74-99) mg/dL Calcium 8.3 L (8.4-10.2) mg/dL Microbiology - Last 24 Hours (Table) 03/03/24 03:08 Gram Stain - Preliminary Sputum
--- NOTE | 2024-03-04 14:51 | P.CN ---
Psychiatric Consult - . Consult date: 03/04/24 Consult:: Medical Review Coordinator attempted to see patient today at the bedside however he remains intubated and up and unable to speak. According to review of chart patient has been experiencing severe alcohol withdrawal symptoms including hallucinations and vital instabilities. Patient is currently on Versed at to help with alcohol withdrawal. Spoke with nurse at the bedside and informed her that it would be a good idea to transition patient onto standing dose of Librium once he is extubated for alcohol withdrawal and then continue to taper, a good starting dose would be anywhere from 25 mg 3 times daily or 4 times daily and continue with CIWA protocol and as needed Ativan. Will continue to follow along closely and will attempt to do a full psychiatric evaluation once patient is extubated and able to communicate.
[2024-03-04] MEDS ORDERED: DEXTROSE 50% SYRINGE 50 ML IVP PRN (17:50)
[2024-03-04 17:51] LABS: Glucose,Whole Blood 68 mg/dL (70-110)
[2024-03-04] MEDS: DEXTROSE 50% SYRINGE 50 ML IVP PRN (18:04)
[2024-03-04] MEDS: INSULIN ASPART (NovoLOG) 100 UNIT/ML VIAL SQ SCH (18:09)
[2024-03-04 18:18] LABS: Glucose,Whole Blood 136 mg/dL (70-110)
[2024-03-04 23:52] LABS: Glucose,Whole Blood 83 mg/dL (70-110)
[2024-03-05 04:57] LABS: Anisocytosis Slight; Basophils % (A) 0 %; Eosinophils # (A) 0.1 k/uL (0-0.7); Eosinophils % (A) 1 %; HCT 38.9 % (39.0-53.0); HGB 12.6 gm/dL (13.0-17.5); Lymphocytes # (A) 0.7 k/uL (1.0-4.8); Lymphocytes % (A) 14 %; MCH 30.7 pg (25.0-35.0); MCHC 32.5 g/dL (31.0-37.0); MCV 94.6 fL (80.0-100.0); Monocytes # (A) 0.6 k/uL (0-1.0); Monocytes % (A) 11 %; Neutrophils % (A) 73 %; Platelet Count 88 k/uL (150-450); RBC 4.11 m/uL (4.30-5.90); RDW 16.3 % (11.5-15.5); WBC 5.5 k/uL (3.8-10.6)
[2024-03-05 05:14] LABS: ABG Base Excess -2.2 mmol/L; ABG HCO3 21 mmol/L (21-25); ABG Oxygen Saturation 98.3 % (94-97); ABG PCO2 31 mmHg (35-45); ABG PH 7.45 (7.35-7.45); ABG PO2 98 mmHg (83-108); ABG TCO2 22 mmol/L (19-24); Allen Test Performed? Yes
[2024-03-05 05:35] LABS: African American GFR (CKD) >90 (>60 ml/min/1.73 sqM); Anion Gap 9 mmol/L; Blood Urea Nitrogen <2 mg/dL (9-20); Calcium 8.4 mg/dL (8.4-10.2); Carbon Dioxide 18 mmol/L (22-30); Chloride 108 mmol/L (98-107); Glucose 86 mg/dL (74-99); Non-African American GFR(CKD) >90 (>60 ml/min/1.73 sqM); Potassium 3.4 mmol/L (3.5-5.1); Sodium 135 mmol/L (137-145)
[2024-03-05 05:41] LABS: Glucose,Whole Blood 82 mg/dL (70-110)
[2024-03-05] MEDS ORDERED: Potassium Replacement Protocol 1 EACH MISC MISCELLANE PRN ×2 (06:15→21:27)
[2024-03-05] MEDS: POTASSIUM BICARBONATE/CIT AC 20 MEQ TABLET.EFF NG-TUBE SCH (06:23)
[2024-03-05] MEDS: NICOTINE 21MG/24HR PATCH TRANSDERM SCH (06:44)
[2024-03-05] MEDS: propofoL 100 ML IV ONE ×2 (07:32→23:54)
[2024-03-05] MEDS: ACETAMINOPHEN TAB 325 MG TAB PO PRN (09:58)
[2024-03-05] MEDS: PIPERACILLIN-TAZOBACTAM 3.375 GM in SODIUM CHLORIDE 0.9% 100 ML IVPB SCH (10:14)
[2024-03-05 10:36] LABS: Appearance,Urine Clear (Clear); Bilirubin,Urine Negative (Negative); Blood,Urine Negative (Negative); Color,Urine Yellow; Glucose,Urine (UA) Negative (Negative); Ketones,Urine 2+ (Negative); Leukocyte Esterase,Urine Negative (Negative); Nitrite,Urine Negative (Negative); Protein,Urine Negative (Negative); Specific Gravity,Urine 1.022 (1.001-1.035)
[2024-03-05 11:50] LABS: Glucose,Whole Blood 116 mg/dL (70-110)
--- NOTE | 2024-03-05 12:02 | XR ---
EXAMINATION TYPE: XR chest 1V portable DATE OF EXAM: 03/05/2024 COMPARISON: 03/04/2024 INDICATION: Mechanical ventilation TECHNIQUE: Single frontal view of the chest is obtained. FINDINGS: The heart size is normal. The pulmonary vasculature is normal. There may be some mild increased right perihilar lung markings. Endotracheal tube tip is located abov e the sumanth. Nasogastric tube transverses the thorax tip in the left upper quadrant of the abdomen. IMPRESSION: 1. Right perihilar infiltrate. Correlate for bronchitis or viral pneumonia. Follow-up is recommended. 2. Lines and catheters discussed above
--- NOTE | 2024-03-05 12:02 | P.PN ---
Subjective Progress Note Date: 03/05/24 Principal diagnosis: Acute delirium tremens with severe agitation requiring intubation mechanical ventilation This is a 43-year-old male patient got transferred to the intensive care unit because of alcohol withdrawal and active delirium tremens. The patient has history of alcoholism and the patient was sent to our emergency department from [place] for ongoing hallucinations. The patient drinks approximately 16 beers on a daily basis and he has been without alcohol for the past 3 days. The patient was receiving Ativan in the emergency department. The patient was talking to individuals were not present. He was actively hallucinating. At times, he was also being agitated. Initially was admitted to the medical floor. He received more than 10 mg of IV Ativan. Following that, due to aggressive behavior and agitation, he was transferred to the intensive care unit and the patient was started on Precedex. His respiratory status is stable and the patient's pulse ox 99% on room air oxygen. The patient remains somewhat agitated. Sitter is at the bedside. Blood pressure is stable, in fact the patient is slightly hypertensive in the has no signs of any significant respiratory distress. The white cell count is at 3.6 and hemoglobin 4.3 and a platelet count of 64. BUN is at 9 with a creatinine of 0.3 and sodium levels at 130. Potassium level of 3.1. LFTs are abnormal consistent with alcoholic liver disease with an AST of 156 and ALT of 85. Normal bilirubin at 1.3. Albumin is at 4.2. The patient is currently in the intensive care unit on Precedex. He is on IV fluids. He is on thiamine. On today's evaluation of 03/03/2024, the patient is being seen for a follow-up. Events from yesterday night were noted. The patient was started initially on Precedex drip. Subsequently Versed drip was added. Nevertheless, we are unable to control his agitation. He was extremely violent and uncontrollable. He was started on propofol and following that he was intubated placed on mechanical ventilator. This morning, the patient is on propofol which is running at 65 mcg/kg/min and Versed drip at 50 mg an hour. He is on normal saline at rate of 100 cc an hour. He is on assist-control of mode of mechanical ventilation at rate of 18, tidal volume of 450, FiO2 of 55% with a PEEP of 5. Blood gas showed a pH of 7.42 with a pCO2 of 33 and pO2 of 273 post intubation and according to the FiO2 was weaned down. Hemodynamically stable. White cell count of 4.3 with a hemoglobin 12.2, platelet count of 69, the electrolytes are stable with a pota ssium level of 3.3, bicarb is at 19, BUN is at 7 with a creatinine of 0.37., Comfortable on mechanical ventilator. Afebrile. Reevaluated on 03/04/2024, patient remains in the ICU, intubated and mechanically ventilated. His vent settings are 18/450/35%/5 he is on assist-control mode of mechanical ventilation ABG showed a pO2 of 134 pCO2 32 pH of 7.40 patient is maintained on Nimbex he is also on Versed at 15 mg/h propofol at 65 mcg/kg/min IV fluid 0.9 normal saline at 100 cc/h. Patient is calm, completely sedated and paralyzed. However I plan to discontinue his Nimbex today, and hopefully maintain him calm on Versed and propofol based on the blood gas, I change his FiO2 to 30% instead of 35% chest x-ray showed no acute pulmonary process. WBC count is 3.8 hemoglobin is 12 electrolytes are normal except for low potassium of 3.2, renal profile is normal. Patient remains on the alcohol withdrawal protocol, remains on Keppra, plan to start enteral feeding/nutritional support today Patient was seen today on 03/05/2024, remains in the ICU, intubated and mechanically ventilated. Patient is on assist-control rate of 18 tidal volume 450 FiO2 30% PEEP of 5 ABG showed a pO2 of 98 pCO2 31 pH of 7.45. Remains on Versed at 13 mg/h propofol at 65 mcg/kg/min IV fluid 0.9 normal saline at 100 cc/h. Patient is calm, sedated, he was taken off Nimbex yesterday, and remains off Nimbex. My plan today is to consider tapering down his sedation and hopefully in the next 24 hours to start addressing weaning parameters and possibly weaning trials. At this point we will work on tapering down the sedation and see how he does over the next 24 hours. In the meantime we will empirically start the patient on antibiotics as the patient is spiking temps as high as 101 last night. Cultures were ordered including sputum cultures blood cultures and urine cultures. Chest x-ray showed no evidence of infiltrate. WBC count remains 5.5 hemoglobin 12.6 basic metabolic profile is normal, renal pr ofile is normal Objective - Vital Signs Vital signs: Vital Signs Temp 100.4 F H 03/05/24 08:00 Pulse 96 03/05/24 10:00 Resp 18 03/05/24 10:00 BP 133/87 03/05/24 10:00 Pulse Ox 100 03/05/24 10:00 FiO2 30 03/05/24 10:38 Intake & Output 03/04/24 03/05/24 03/05/24 18:59 06:59 18:59 Intake Total 2088.635 1827.95 742.737 Output Total 1290 1095 285 Balance 798.635 732.95 457.737 Weight 69.1 kg 75.2 kg Intake: IV 1300 1250 450 Sodium Chloride 0.9% 1, 1200 1200 400 000 ml @ 100 mls/hr IV . Q10H [facility] Rx#:[id number] Thiamine 500 mg In Sodium 100 50 50 Chloride 0.9% 50 ml @ 100 mls/hr IVPB TID [facility] Rx#:[id number] Intake, IV Titration 638.635 222.95 147.737 Amount Cisatracurium 200 mg In 208.233 Sodium Chloride 0.9% 180 ml @ 1 MCG/KG/MIN 4.146 mls/hr IV .Q24H [facility] Rx#: [id number] Midazolam HCl 200 mg In 145.925 22.95 73.667 Sodium Chloride 0.9% 60 ml @ 15 MG/HR 7.5 mls/hr IV .[id number] [facility] Rx#: [id number] propofoL 1,000 mg In 284.477 200 74.07 Empty Bag 1 bag @ 15 MCG/ KG/MIN 6.45 mls/hr IV . [id number] [facility] Rx#:[id number] Tube Feeding 90 265 115 Other 60 90 30 Output: Urine 1290 1095 285 Other: Voiding Method Indwelling Catheter Indwelling Catheter Indwelling Catheter # Bowel Movements 1 ABP, PAP, CO, CI - Last Documented Arterial Blood Pressure 152/81 - Exam GENERAL: Revealed 43-year-old white male intubated mechanically ventilated sedated on propofol and on Versed, off Nimbex Head: Atraumatic, normocephalic. HEENT: PERRLA, EOMI, nonicteric, moist mucous membranes. CARDIOVASCULAR: Normal S1-S2, no S3 gallop. PULMONARY: Diminished breath sound bilaterally no crackles rhonchi or wheezes ABDOMEN: Nontender no megaly no rebound soft, positive bowel sounds. MUSCULOSKELETAL: No deformities. EXTREMITIES: No clubbing no edema no cyanosis NEUROLOGICAL: Could not assess patient is sedated Psychiatric: Could not assess. Skin: No rash - Labs CBC & Chem 7: 03/05/24 04:38 03/05/24 04:38 Labs: Abnormal Lab Results - Last 24 Hours (Table) 03/04/24 03/04/24 03/05/24 Range/Units 17:49 18:17 04:38 RBC 4.11 L (4.30-5.90) m/uL Hgb 12.6 L (13.0-17.5) gm/dL Hct 38.9 L (39.0-53.0) % RDW 16.3 H (11.5-15.5) % Plt Count 88 L (150-450) k/uL Lymphocytes # 0.7 L (1.0-4.8) k/uL ABG pCO2 (35-45) mmHg ABG O2 Saturation (94-97) % Sodium (137-145) mmol/L Potassium (3.5-5.1) mmol/L Chloride (98-107) mmol/L Carbon Dioxide (22-30) mmol/L BUN (9-20) mg/dL Creatinine (0.66-1.25) mg/dL POC Glucose (mg/dL) 68 L 136 H (70-110) mg/dL Urine Ketones (Negative) 03/05/24 03/05/24 03/05/24 Range/Units 04:38 05:14 09:49 RBC (4.30-5.90) m/uL Hgb (13.0-17.5) gm/dL Hct (39.0-53.0) % RDW (11.5-15.5) % Plt Count (150-450) k/uL Lymphocytes # (1.0-4.8) k/uL ABG pCO2 31 L (35-45) mmHg ABG O2 Saturation 98.3 H (94-97) % Sodium 135 L (137-145) mmol/L Potassium 3.4 L (3.5-5.1) mmol/L Chloride 108 H (98-107) mmol/L Carbon Dioxide 18 L (22-30) mmol/L BUN <2 L (9-20) mg/dL Creatinine 0.36 L (0.66-1.25) mg/dL POC Glucose (mg/dL) (70-110) mg/dL Urine Ketones 2+ H (Negative) 03/05/24 Range/Units 11:48 RBC (4.30-5.90) m/uL Hgb (13.0-17.5) gm/dL Hct (39.0-53.0) % RDW (11.5-15.5) % Plt Count (150-450) k/uL Lymphocytes # (1.0-4.8) k/uL ABG pCO2 (35-45) mmHg ABG O2 Saturation (94-97) % Sodium (137-145) mmol/L Potassium (3.5-5.1) mmol/L Chloride (98-107) mmol/L Carbon Dioxide (22-30) mmol/L BUN (9-20) mg/dL Creatinine (0.66-1.25) mg/dL POC Glucose (mg/dL) 116 H (70-110) mg/dL Urine Ketones (Negative) Microbiology - Last 24 Hours (Table) 03/03/24 03:08 Gram Stain - Final Sputum Sputum Culture - Final Assessment and Plan Assessment: Impression: Acute delirium tremens requiring intubation mechanical ventilation. Alcoholism Chronic thrombocytopenia related to alcoholism Acute transaminitis secondary to alcoholism History of depression History of seizure disorder, maintained on Keppra Benign essential hypertension Intermittent episodes of fever, etiology is not clear, no clear-cut evidence of infection.\However blood cultures sputum cultures and urine cultures were ordered. Recommendation: Pancultures as noted above. Empirically start Zosyn, until cultures are available Continue ventilatory support Continue Versed and propofol, titrate both down including Versed and propofol if possible Continue GI and DVT prophylaxis including IV Protonix and compression devices Nutritional support/enteral feeding Continue thiamine and alcohol withdrawal protocol Continue to monitor daily x-rays of the chest, Not ready for weaning trials at this point yet. Consider checking weaning parameters in the next 24 hours Will continue to follow Patient is critically ill, critical care time is over 30 Time with Patient: Greater than 30
--- NOTE | 2024-03-05 14:30 | P.PN ---
Subjective Progress Note Date: 03/05/24 patient is 43 years old gentleman past medical history significant for alcohol abuse who was sent into ER from [place] for hallucinations. Patient drinks up to 16 beers per day and has been without alcohol for the last 3 days. Patient was being evaluated at [place] and was receiving Ativan in the ER. Patient has been seen talking to people who were not there. Patient also reported that there was a beer attacking a person. There was no complaint suicidal thoughts. No complaint of nausea, vomiting abdominal pain. Denies any chest pain or shortness of breath. Because of the symptoms, patient was transferred to ER Initial lab work done in the ER showed WBC 3.6, hemoglobin 12.3, platelet count 64, sodium 133, potassium 3.1, chloride 99, carbon is a 27, anion gap 7, creatinine 0.39, glucose 90, magnesium 1 Patient admitted to internal medicine service 03/03. Patient seen and examined. Patient was transferred to ICU yesterday and was later intubated secondary to increased agitation. Patient currently on propofol 03/04. Patient seen and examined.Blood work done this morning showed WBC 3.8, hemoglobin 12, platelet count 70, sodium 131, potassium 3.2, BUN 2, creatinine 0.29. Patient currently Nimbex drip 03/05. Patient seen and examined. Continues to be intubated. Patient had low- grade fevers overnight. Started on IV Zosyn. Patient is off Nimbex now REVIEW OF SYSTEMS: Currently intubated and sedated PHYSICAL EXAMINATION: GENERAL: The patient is intubated HEENT: Pupils are round and equally reacting to light. EOMI. No scleral icterus. No conjunctival pallor. Normocephalic, atraumatic. No pharyngeal erythema. No thyromegaly. CARDIOVASCULAR: S1 and S2 present. No murmurs, rubs, or gallops. PULMONARY: Chest is clear to auscultation, no wheezing or crackles. ABDOMEN: Soft, nontender, nondistended, normoactive bowel sounds. No palpable organomegaly. MUSCULOSKELETAL: No joint swelling or deformity. EXTREMITIES: No cyanosis, clubbing, or pedal edema. NEUROLOGICAL: Intubated SKIN: No rashes. Assessment and plan Acute hypoxic admitted failure Alcohol abuse Impending DTs Alcohol detox Hypomagnesemia Hyponatremia Hypokalemia Thrombocytopenia Acute transaminitis Monitor vital signs Monitor CBC Monitor CMP Continue vent management per ICU Blood cultures ordered Sputum cultures ordered Urine cultures ordered Continue Versed Continue tube feeding Continue IV Zosyn Continue high-dose thiamine and folic acid Continue CIWA protocol ICU following Psychiatry following Labs and medication were reviewed.. Continue same treatment. Continue with symptomatic treatment. Resume home medication. Monitor labs and vitals. DVT and GI prophylaxis. Further recommendations as per clinical course of the patient Dictation was produced using [employer] dictation software. please excuse any grammatical, word or spelling errors. Objective - Vital Signs Vital signs: Vital Signs Temp 100.0 F H 03/05/24 04:00 Pulse 101 H 03/05/24 07:00 Resp 26 H 03/05/24 07:00 BP 140/87 03/05/24 07:00 Pulse Ox 99 03/05/24 07:00 FiO2 30 03/05/24 07:37 Intake & Output 03/04/24 03/05/24 03/05/24 18:59 06:59 18:59 Intake Total 2088.635 1827.95 125 Output Total 1290 1095 100 Balance 798.635 732.95 25 Weight 69.1 kg 75.2 kg Intake: IV 1300 1250 100 Sodium Chloride 0.9% 1, 1200 1200 100 000 ml @ 100 mls/hr IV . Q10H [facility] Rx#:[id number] Thiamine 500 mg In Sodium 100 50 Chloride 0.9% 50 ml @ 100 mls/hr IVPB TID [facility] Rx#:[id number] Intake, IV Titration 638.635 222.95 Amount Cisatracurium 200 mg In 208.233 Sodium Chloride 0.9% 180 ml @ 1 MCG/KG/MIN 4.146 mls/hr IV .Q24H [facility] Rx#: [id number] Midazolam HCl 200 mg In 145.925 22.95 Sodium Chloride 0.9% 60 ml @ 15 MG/HR 7.5 mls/hr IV .[id number] [facility] Rx#: [id number] propofoL 1,000 mg In 284.477 200 Empty Bag 1 bag @ 15 MCG/ KG/MIN 6.45 mls/hr IV . [id number] [facility] Rx#:[id number] Tube Feeding 90 265 25 Other 60 90 Output: Urine 1290 1095 100 Other: Voiding Method Indwelling Catheter Indwelling Catheter # Bowel Movements 1 ABP, PAP, CO, CI - Last Documented Arterial Blood Pressure 135/72 - Labs CBC & Chem 7: 03/05/24 04:38 03/05/24 04:38 Labs: Abnormal Lab Results - Last 24 Hours (Table) 03/04/24 03/04/24 03/05/24 Range/Units 17:49 18:17 04:38 RBC 4.11 L (4.30-5.90) m/uL Hgb 12.6 L (13.0-17.5) gm/dL Hct 38.9 L (39.0-53.0) % RDW 16.3 H (11.5-15.5) % Plt Count 88 L (150-450) k/uL Lymphocytes # 0.7 L (1.0-4.8) k/uL ABG pCO2 (35-45) mmHg ABG O2 Saturation (94-97) % Sodium (137-145) mmol/L Potassium (3.5-5.1) mmol/L Chloride (98-107) mmol/L Carbon Dioxide (22-30) mmol/L BUN (9-20) mg/dL Creatinine (0.66-1.25) mg/dL POC Glucose (mg/dL) 68 L 136 H (70-110) mg/dL 03/05/24 03/05/24 Range/Units 04:38 05:14 RBC (4.30-5.90) m/uL Hgb (13.0-17.5) gm/dL Hct (39.0-53.0) % RDW (11.5-15.5) % Plt Count (150-450) k/uL Lymphocytes # (1.0-4.8) k/uL ABG pCO2 31 L (35-45) mmHg ABG O2 Saturation 98.3 H (94-97) % Sodium 135 L (137-145) mmol/L Potassium 3.4 L (3.5-5.1) mmol/L Chloride 108 H (98-107) mmol/L Carbon Dioxide 18 L (22-30) mmol/L BUN <2 L (9-20) mg/dL Creatinine 0.36 L (0.66-1.25) mg/dL POC Glucose (mg/dL) (70-110) mg/dL Microbiology - Last 24 Hours (Table) 03/03/24 03:08 Gram Stain - Final Sputum Sputum Culture - Final
[2024-03-05 17:52] LABS: Glucose,Whole Blood 101 mg/dL (70-110)
[2024-03-05] MEDS: POTASSIUM CHLORIDE 10 MEQ in WATER FOR INJECTION 1 100ML.BAG IVPB SCH (22:15)
[2024-03-05 23:46] LABS: Glucose,Whole Blood 127 mg/dL (70-110)
[2024-03-06] MEDS ORDERED: Magnesium Replacement Protocol 1 EACH MISC MISCELLANE PRN (01:48)
[2024-03-06] MEDS: MAGNESIUM SULFATE-D5W PMX 1 GM in DEXTROSE/WATER 1 100ML.BAG IVPB SCH (02:03)
[2024-03-06 05:09] LABS: Glucose,Whole Blood 129 mg/dL (70-110)
[2024-03-06 05:18] LABS: Anisocytosis Slight; Basophils % (A) 0 %; Eosinophils # (A) 0.1 k/uL (0-0.7); Eosinophils % (A) 1 %; HCT 37.5 % (39.0-53.0); HGB 12.3 gm/dL (13.0-17.5); Lymphocytes # (A) 0.7 k/uL (1.0-4.8); Lymphocytes % (A) 9 %; MCH 30.9 pg (25.0-35.0); MCHC 32.9 g/dL (31.0-37.0); MCV 93.9 fL (80.0-100.0); Mean Platelet Volume 11.1; Monocytes # (A) 1.3 k/uL (0-1.0); Monocytes % (A) 17 %; Neutrophils # (A) 5.8 k/uL (1.3-7.7); Neutrophils % (A) 72 %; Platelet Count 105 k/uL (150-450); RBC 3.99 m/uL (4.30-5.90); RDW 16.4 % (11.5-15.5)
[2024-03-06 05:27] LABS: ABG Base Excess 2.1 mmol/L; ABG HCO3 26 mmol/L (21-25); ABG Oxygen Saturation 97.7 % (94-97); ABG PCO2 38 mmHg (35-45); ABG PH 7.45 (7.35-7.45); ABG PO2 92 mmHg (83-108); ABG TCO2 27 mmol/L (19-24); Allen Test Performed? Yes
[2024-03-06 05:28] LABS: African American GFR (CKD) >90 (>60 ml/min/1.73 sqM); Anion Gap 5 mmol/L; Blood Urea Nitrogen 2 mg/dL (9-20); Calcium 8.3 mg/dL (8.4-10.2); Carbon Dioxide 23 mmol/L (22-30); Chloride 106 mmol/L (98-107); Glucose 133 mg/dL (74-99); Non-African American GFR(CKD) >90 (>60 ml/min/1.73 sqM); Potassium 3.2 mmol/L (3.5-5.1); Sodium 134 mmol/L (137-145)
[2024-03-06] MEDS ORDERED: Potassium Replacement Protocol 1 EACH MISC MISCELLANE PRN (06:23)
[2024-03-06] MEDS: POTASSIUM BICARBONATE/CIT AC 20 MEQ TABLET.EFF NG-TUBE SCH (06:53)
[2024-03-06] MEDS: propofoL 100 ML IV ONE (07:36)
--- NOTE | 2024-03-06 08:07 | XR ---
EXAMINATION TYPE: XR chest 1V portable DATE OF EXAM: 03/06/2024 COMPARISON: 03/05/2024 HISTORY: SOB, Follow Up FINDINGS: Indwelling tubes and catheters are unchanged. Stable appearance of the cardio-mediastinal structures at this time. No focal infiltrates seen. IMPRESSION: 1. Stable portable chest. Clinical correlation and follow up until resolution is recommended.
--- NOTE | 2024-03-06 10:48 | P.PN ---
Subjective Progress Note Date: 03/06/24 Principal diagnosis: Acute delirium tremens with severe agitation requiring intubation mechanical ventilation This is a 43-year-old male patient got transferred to the intensive care unit because of alcohol withdrawal and active delirium tremens. The patient has history of alcoholism and the patient was sent to our emergency department from [place] for ongoing hallucinations. The patient drinks approximately 16 beers on a daily basis and he has been without alcohol for the past 3 days. The patient was receiving Ativan in the emergency department. The patient was talking to individuals were not present. He was actively hallucinating. At times, he was also being agitated. Initially was admitted to the medical floor. He received more than 10 mg of IV Ativan. Following that, due to aggressive behavior and agitation, he was transferred to the intensive care unit and the patient was started on Precedex. His respiratory status is stable and the patient's pulse ox 99% on room air oxygen. The patient remains somewhat agitated. Sitter is at the bedside. Blood pressure is stable, in fact the patient is slightly hypertensive in the has no signs of any significant respiratory distress. The white cell count is at 3.6 and hemoglobin 4.3 and a platelet count of 64. BUN is at 9 with a creatinine of 0.3 and sodium levels at 130. Potassium level of 3.1. LFTs are abnormal consistent with alcoholic liver disease with an AST of 156 and ALT of 85. Normal bilirubin at 1.3. Albumin is at 4.2. The patient is currently in the intensive care unit on Precedex. He is on IV fluids. He is on thiamine. On today's evaluation of 03/03/2024, the patient is being seen for a follow-up. Events from yesterday night were noted. The patient was started initially on Precedex drip. Subsequently Versed drip was added. Nevertheless, we are unable to control his agitation. He was extremely violent and uncontrollable. He was started on propofol and following that he was intubated placed on mechanical ventilator. This morning, the patient is on propofol which is running at 65 mcg/kg/min and Versed drip at 50 mg an hour. He is on normal saline at rate of 100 cc an hour. He is on assist-control of mode of mechanical ventilation at rate of 18, tidal volume of 450, FiO2 of 55% with a PEEP of 5. Blood gas showed a pH of 7.42 with a pCO2 of 33 and pO2 of 273 post intubation and according to the FiO2 was weaned down. Hemodynamically stable. White cell count of 4.3 with a hemoglobin 12.2, platelet count of 69, the electrolytes are stable with a pota ssium level of 3.3, bicarb is at 19, BUN is at 7 with a creatinine of 0.37., Comfortable on mechanical ventilator. Afebrile. Reevaluated on 03/04/2024, patient remains in the ICU, intubated and mechanically ventilated. His vent settings are 18/450/35%/5 he is on assist-control mode of mechanical ventilation ABG showed a pO2 of 134 pCO2 32 pH of 7.40 patient is maintained on Nimbex he is also on Versed at 15 mg/h propofol at 65 mcg/kg/min IV fluid 0.9 normal saline at 100 cc/h. Patient is calm, completely sedated and paralyzed. However I plan to discontinue his Nimbex today, and hopefully maintain him calm on Versed and propofol based on the blood gas, I change his FiO2 to 30% instead of 35% chest x-ray showed no acute pulmonary process. WBC count is 3.8 hemoglobin is 12 electrolytes are normal except for low potassium of 3.2, renal profile is normal. Patient remains on the alcohol withdrawal protocol, remains on Keppra, plan to start enteral feeding/nutritional support today Patient was seen today on 03/05/2024, remains in the ICU, intubated and mechanically ventilated. Patient is on assist-control rate of 18 tidal volume 450 FiO2 30% PEEP of 5 ABG showed a pO2 of 98 pCO2 31 pH of 7.45. Remains on Versed at 13 mg/h propofol at 65 mcg/kg/min IV fluid 0.9 normal saline at 100 cc/h. Patient is calm, sedated, he was taken off Nimbex yesterday, and remains off Nimbex. My plan today is to consider tapering down his sedation and hopefully in the next 24 hours to start addressing weaning parameters and possibly weaning trials. At this point we will work on tapering down the sedation and see how he does over the next 24 hours. In the meantime we will empirically start the patient on antibiotics as the patient is spiking temps as high as 101 last night. Cultures were ordered including sputum cultures blood cultures and urine cultures. Chest x-ray showed no evidence of infiltrate. WBC count remains 5.5 hemoglobin 12.6 basic metabolic profile is normal, renal pr ofile is normal Patient was made today on 03/06/2024, remains in the ICU intubated and mechanically ventilated. Patient is on assist-control rate of 18 tidal volume 450 FiO2 30% PEEP of 5 ABG showed a pO2 of 120 pCO2 27 pH of 7.46. No changes were made in vent settings. Patient remains on propofol at 45 mcg/kg/min he is also on Versed at 5 mg/h receiving vital HP at 42 cc/h. Which is the goal. Magnesium is low today at 1.1, that is being corrected as per protocol. Patient is calm, fully sedated, instructed nursing staff to cut down on his sedation, hopefully discontinue Versed, and hopefully assess mental status on a lower dose of sedation, and even consider weaning parameters. Chest x-ray showed no evidence of active disease. CBC is relatively normal. Electrolytes showed low potassium of 3.2 and low magnesium being addressed accordingly. Objective - Vital Signs Vital signs: Vital Signs Temp 100.6 F H 03/06/24 08:00 Pulse 92 03/06/24 09:00 Resp 18 03/06/24 09:00 BP 120/74 03/06/24 09:00 Pulse Ox 97 03/06/24 09:00 FiO2 30 03/06/24 09:43 Intake & Output 03/05/24 03/06/24 03/06/24 18:59 06:59 18:59 Intake Total 2355.155 3288.372 571.945 Output Total 1170 1260 750 Balance 8606.071 0436.372 -178.055 Weight 77.8 kg Intake: IV 1500 1350 400 Piperacillin-Tazobactam 3 200 100 100 .375 gm In Sodium Chloride 0.9% 100 ml @ 25 mls/hr IVPB Q8HR [facility] Rx# :[id number] Sodium Chloride 0.9% 1, 1200 1200 300 000 ml @ 100 mls/hr IV . Q10H [facility] Rx#:[id number] Thiamine 500 mg In Sodium 100 50 Chloride 0.9% 50 ml @ 100 mls/hr IVPB TID [facility] Rx#:[id number] Intake, IV Titration 583.425 8845.372 57.945 Amount Magnesium Sulfate-D5w Pmx 500 1 gm In Dextrose/Water 1 100ml.bag @ 100 mls/hr IVPB Q1H [facility] Rx#: [id number] Midazolam HCl 200 mg In 111.825 78.475 6.667 Sodium Chloride 0.9% 60 ml @ 15 MG/HR 7.5 mls/hr IV .[id number] [facility] Rx#: [id number] Piperacillin-Tazobactam 3 100 .375 gm In Sodium Chloride 0.9% 100 ml @ 25 mls/hr IVPB Q8HR [facility] Rx# :[id number] Potassium Chloride 10 meq 400 In Water For Injection 1 100ml.bag @ 100 mls/hr IVPB Q1HR [facility] Rx#: [id number] propofoL 1,000 mg In 268.330 307.897 51.278 Empty Bag 1 bag @ 15 MCG/ KG/MIN 6.45 mls/hr IV . [id number] [facility] Rx#:[id number] Tube Feeding 385 462 84 Other 90 90 30 Output: Urine 1170 1260 750 Other: Voiding Method Indwelling Catheter Indwelling Catheter ABP, PAP, CO, CI - Last Documented Arterial Blood Pressure 120/69 - Exam GENERAL: Revealed 43-year-old white male intubated mechanically ventilated sedated on propofol and on Versed Head: Atraumatic, normocephalic. HEENT: PERRLA, EOMI, nonicteric, moist mucous membranes. CARDIOVASCULAR: Normal S1-S2, no S3 gallop. PULMONARY: Diminished breath sound bilaterally no crackles rhonchi or wheezes ABDOMEN: Nontender no megaly no rebound soft, positive bowel sounds. MUSCULOSKELETAL: No deformities. EXTREMITIES: No clubbing no edema no cyanosis NEUROLOGICAL: Could not assess patient is sedated Psychiatric: Could not assess. Skin: No rash - Labs CBC & Chem 7: 03/06/24 05:00 03/06/24 05:00 Labs: Abnormal Lab Results - Last 24 Hours (Table) 03/05/24 03/05/24 03/05/24 Range/Units 11:48 20:41 23:45 RBC (4.30-5.90) m/uL Hgb (13.0-17.5) gm/dL Hct (39.0-53.0) % RDW (11.5-15.5) % Plt Count (150-450) k/uL Lymphocytes # (1.0-4.8) k/uL Monocytes # (0-1.0) k/uL ABG HCO3 (21-25) mmol/L ABG Total CO2 (19-24) mmol/L ABG O2 Saturation (94-97) % Sodium (137-145) mmol/L Potassium 3.1 L (3.5-5.1) mmol/L BUN (9-20) mg/dL Creatinine (0.66-1.25) mg/dL Glucose (74-99) mg/dL POC Glucose (mg/dL) 116 H 127 H (70-110) mg/dL Calcium (8.4-10.2) mg/dL Magnesium (1.6-2.3) mg/dL 03/06/24 03/06/24 03/06/24 Range/Units 00:30 05:00 05:00 RBC 3.99 L (4.30-5.90) m/uL Hgb 12.3 L (13.0-17.5) gm/dL Hct 37.5 L (39.0-53.0) % RDW 16.4 H (11.5-15.5) % Plt Count 105 L (150-450) k/uL Lymphocytes # 0.7 L (1.0-4.8) k/uL Monocytes # 1.3 H (0-1.0) k/uL ABG HCO3 (21-25) mmol/L ABG Total CO2 (19-24) mmol/L ABG O2 Saturation (94-97) % Sodium 134 L (137-145) mmol/L Potassium 3.2 L (3.5-5.1) mmol/L BUN 2 L (9-20) mg/dL Creatinine 0.34 L (0.66-1.25) mg/dL Glucose 133 H (74-99) mg/dL POC Glucose (mg/dL) (70-110) mg/dL Calcium 8.3 L (8.4-10.2) mg/dL Magnesium 1.1 L (1.6-2.3) mg/dL 03/06/24 03/06/24 Range/Units 05:07 05:23 RBC (4.30-5.90) m/uL Hgb (13.0-17.5) gm/dL Hct (39.0-53.0) % RDW (11.5-15.5) % Plt Count (150-450) k/uL Lymphocytes # (1.0-4.8) k/uL Monocytes # (0-1.0) k/uL ABG HCO3 26 H (21-25) mmol/L ABG Total CO2 27 H (19-24) mmol/L ABG O2 Saturation 97.7 H (94-97) % Sodium (137-145) mmol/L Potassium (3.5-5.1) mmol/L BUN (9-20) mg/dL Creatinine (0.66-1.25) mg/dL Glucose (74-99) mg/dL POC Glucose (mg/dL) 129 H (70-110) mg/dL Calcium (8.4-10.2) mg/dL Magnesium (1.6-2.3) mg/dL Microbiology - Last 24 Hours (Table) 03/03/24 03:08 Gram Stain - Final Sputum Sputum Culture - Final Assessment and Plan Assessment: Impression:Acute delirium tremens requiring intubation mechanical ventilation. Alcoholism Chronic thrombocytopenia related to alcoholism Acute transaminitis secondary to alcoholism History of depression History of seizure disorder, maintained on Keppra Benign essential hypertension Intermittent episodes of fever, cultures are nondiagnostic, patient is empirically on Zosyn Recommendation: Continue ventilatory support Continue sedation but will attempt sedation interruption or assessment of mental status on lower dose of sedation, hoping to discontinue Versed and maintain patient on propofol. Continue antibiotics empirically Continue GI and DVT prophylaxis including IV Protonix and compression devices Continue nutritional support/enteral feeding Continue thiamine and alcohol withdrawal protocol Continue to monitor daily x-rays of the chest, Will continue to follow Patient is critically ill critical care time is over 30 Time with Patient: Greater than 30
[2024-03-06 11:39] LABS: Glucose,Whole Blood 101 mg/dL (70-110)
[2024-03-06] MEDS: MAGNESIUM SULFATE-D5W PMX 1 GM in DEXTROSE/WATER 1 100ML.BAG IVPB ONE (11:40)
[2024-03-06 12:37] LABS: ABG Base Excess 2.2 mmol/L; ABG HCO3 27 mmol/L (21-25); ABG Oxygen Saturation 96.3 % (94-97); ABG PCO2 41 mmHg (35-45); ABG PH 7.42 (7.35-7.45); ABG PO2 80 mmHg (83-108); ABG TCO2 28 mmol/L (19-24)
--- NOTE | 2024-03-06 12:48 | P.PN ---
Subjective Progress Note Date: 03/06/24 patient is 43 years old gentleman past medical history significant for alcohol abuse who was sent into ER from [place] for hallucinations. Patient drinks up to 16 beers per day and has been without alcohol for the last 3 days. Patient was being evaluated at [place] and was receiving Ativan in the ER. Patient has been seen talking to people who were not there. Patient also reported that there was a beer attacking a person. There was no complaint suicidal thoughts. No complaint of nausea, vomiting abdominal pain. Denies any chest pain or shortness of breath. Because of the symptoms, patient was transferred to ER Initial lab work done in the ER showed WBC 3.6, hemoglobin 12.3, platelet count 64, sodium 133, potassium 3.1, chloride 99, carbon is a 27, anion gap 7, creatinine 0.39, glucose 90, magnesium 1 Patient admitted to internal medicine service 03/03. Patient seen and examined. Patient was transferred to ICU yesterday and was later intubated secondary to increased agitation. Patient currently on propofol 03/04. Patient seen and examined.Blood work done this morning showed WBC 3.8, hemoglobin 12, platelet count 70, sodium 131, potassium 3.2, BUN 2, creatinine 0.29. Patient currently Nimbex drip 03/05. Patient seen and examined. Continues to be intubated. Patient had low- grade fevers overnight. Started on IV Zosyn. Patient is off Nimbex now 03/06. Patient seen and examined. Patient opening his eyes. Patient had low- grade fevers overnight again. Patient being given sedation holiday today. REVIEW OF SYSTEMS: Currently intubated and sedated PHYSICAL EXAMINATION: GENERAL: The patient is intubated HEENT: Pupils are round and equally reacting to light. EOMI. No scleral icterus. No conjunctival pallor. Normocephalic, atraumatic. No pharyngeal erythema. No thyromegaly. CARDIOVASCULAR: S1 and S2 present. No murmurs, rubs, or gallops. PULMONARY: Chest is clear to auscultation, no wheezing or crackles. ABDOMEN: Soft, nontender, nondistended, normoactive bowel sounds. No palpable organomegaly. MUSCULOSKELETAL: No joint swelling or deformity. EXTREMITIES: No cyanosis, clubbing, or pedal edema. NEUROLOGICAL: Intubated SKIN: No rashes. Assessment and plan Acute hypoxic admitted failure Alcohol abuse Impending DTs Alcohol detox Hypomagnesemia Hyponatremia Hypokalemia Thrombocytopenia Acute transaminitis Monitor vital signs Monitor CBC Monitor CMP Continue vent management per ICU Follow-up blood cultures follow-up urine culture Follow-up sputum culture Continue Versed Continue tube feeding Continue IV Zosyn Continue high-dose thiamine and folic acid Continue CIWA protocol ICU following Psychiatry following Labs and medication were reviewed.. Continue same treatment. Continue with symptomatic treatment. Resume home medication. Monitor labs and vitals. DVT and GI prophylaxis. Further recommendations as per clinical course of the patient Dictation was produced using [employer] dictation software. please excuse any grammatical, word or spelling errors. Objective - Vital Signs Vital signs: Vital Signs Temp 99.4 F 03/06/24 12:00 Pulse 98 03/06/24 12:00 Resp 13 03/06/24 12:00 BP 113/77 03/06/24 12:00 Pulse Ox 96 03/06/24 12:00 FiO2 30 03/06/24 12:00 Intake & Output 03/05/24 03/06/24 03/06/24 18:59 06:59 18:59 Intake Total 2355.155 3288.372 1068.994 Output Total 1170 1260 1100 Balance 7262.113 3687.372 -31.006 Weight 77.8 kg Intake: IV 1500 1350 850 Magnesium Sulfate-D5w Pmx 100 1 gm In Dextrose/Water 1 100ml.bag @ 100 mls/hr IVPB ONCE ONE Rx#: [id number] Piperacillin-Tazobactam 3 200 100 100 .375 gm In Sodium Chloride 0.9% 100 ml @ 25 mls/hr IVPB Q8HR [facility] Rx# :[id number] Sodium Chloride 0.9% 1, 1200 1200 600 000 ml @ 100 mls/hr IV . Q10H [facility] Rx#:[id number] Thiamine 500 mg In Sodium 100 50 50 Chloride 0.9% 50 ml @ 100 mls/hr IVPB TID [facility] Rx#:[id number] Intake, IV Titration 619.415 6054.372 104.994 Amount Magnesium Sulfate-D5w Pmx 500 1 gm In Dextrose/Water 1 100ml.bag @ 100 mls/hr IVPB Q1H [facility] Rx#: [id number] Midazolam HCl 200 mg In 111.825 78.475 6.667 Sodium Chloride 0.9% 60 ml @ 15 MG/HR 7.5 mls/hr IV .[id number] [facility] Rx#: [id number] Piperacillin-Tazobactam 3 100 .375 gm In Sodium Chloride 0.9% 100 ml @ 25 mls/hr IVPB Q8HR [facility] Rx# :[id number] Potassium Chloride 10 meq 400 In Water For Injection 1 100ml.bag @ 100 mls/hr IVPB Q1HR [facility] Rx#: [id number] propofoL 1,000 mg In 268.330 307.897 98.327 Empty Bag 1 bag @ 15 MCG/ KG/MIN 6.45 mls/hr IV . [id number] [facility] Rx#:[id number] Tube Feeding 385 462 84 Other 90 90 30 Output: Urine 1170 1260 1100 Other: Voiding Method Indwelling Catheter Indwelling Catheter Indwelling Catheter ABP, PAP, CO, CI - Last Documented Arterial Blood Pressure 143/81 - Labs CBC & Chem 7: 03/06/24 05:00 03/06/24 10:10 Labs: Abnormal Lab Results - Last 24 Hours (Table) 03/05/24 03/05/24 03/06/24 Range/Units 20:41 23:45 00:30 RBC (4.30-5.90) m/uL Hgb (13.0-17.5) gm/dL Hct (39.0-53.0) % RDW (11.5-15.5) % Plt Count (150-450) k/uL Lymphocytes # (1.0-4.8) k/uL Monocytes # (0-1.0) k/uL ABG pO2 (83-108) mmHg ABG HCO3 (21-25) mmol/L ABG Total CO2 (19-24) mmol/L ABG O2 Saturation (94-97) % Sodium (137-145) mmol/L Potassium 3.1 L (3.5-5.1) mmol/L BUN (9-20) mg/dL Creatinine (0.66-1.25) mg/dL Glucose (74-99) mg/dL POC Glucose (mg/dL) 127 H (70-110) mg/dL Calcium (8.4-10.2) mg/dL Magnesium 1.1 L (1.6-2.3) mg/dL 03/06/24 03/06/24 03/06/24 Range/Units 05:00 05:00 05:07 RBC 3.99 L (4.30-5.90) m/uL Hgb 12.3 L (13.0-17.5) gm/dL Hct 37.5 L (39.0-53.0) % RDW 16.4 H (11.5-15.5) % Plt Count 105 L (150-450) k/uL Lymphocytes # 0.7 L (1.0-4.8) k/uL Monocytes # 1.3 H (0-1.0) k/uL ABG pO2 (83-108) mmHg ABG HCO3 (21-25) mmol/L ABG Total CO2 (19-24) mmol/L ABG O2 Saturation (94-97) % Sodium 134 L (137-145) mmol/L Potassium 3.2 L (3.5-5.1) mmol/L BUN 2 L (9-20) mg/dL Creatinine 0.34 L (0.66-1.25) mg/dL Glucose 133 H (74-99) mg/dL POC Glucose (mg/dL) 129 H (70-110) mg/dL Calcium 8.3 L (8.4-10.2) mg/dL Magnesium (1.6-2.3) mg/dL 03/06/24 03/06/24 Range/Units 05:23 12:34 RBC (4.30-5.90) m/uL Hgb (13.0-17.5) gm/dL Hct (39.0-53.0) % RDW (11.5-15.5) % Plt Count (150-450) k/uL Lymphocytes # (1.0-4.8) k/uL Monocytes # (0-1.0) k/uL ABG pO2 80 L (83-108) mmHg ABG HCO3 26 H 27 H (21-25) mmol/L ABG Total CO2 27 H 28 H (19-24) mmol/L ABG O2 Saturation 97.7 H (94-97) % Sodium (137-145) mmol/L Potassium (3.5-5.1) mmol/L BUN (9-20) mg/dL Creatinine (0.66-1.25) mg/dL Glucose (74-99) mg/dL POC Glucose (mg/dL) (70-110) mg/dL Calcium (8.4-10.2) mg/dL Magnesium (1.6-2.3) mg/dL Microbiology - Last 24 Hours (Table) 03/05/24 21:08 Gram Stain - Preliminary Sputum
[2024-03-06 14:04] LABS: ABG Base Excess 2.3 mmol/L; ABG HCO3 26 mmol/L (21-25); ABG PCO2 34 mmHg (35-45); ABG PH 7.48 (7.35-7.45); ABG PO2 92 mmHg (83-108); ABG TCO2 27 mmol/L (19-24)
[2024-03-06 18:03] LABS: Glucose,Whole Blood 98 mg/dL (70-110)
[2024-03-06 23:29] LABS: Glucose,Whole Blood 88 mg/dL (70-110)
[2024-03-07 04:27] LABS: Anisocytosis Slight; Basophils % (A) 1 %; Eosinophils # (A) 0.1 k/uL (0-0.7); Eosinophils % (A) 1 %; Lymphocytes # (A) 0.7 k/uL (1.0-4.8); Lymphocytes % (A) 8 %; MCH 30.6 pg (25.0-35.0); MCHC 32.4 g/dL (31.0-37.0); MCV 94.3 fL (80.0-100.0); Mean Platelet Volume 10.6; Monocytes # (A) 1.6 k/uL (0-1.0); Monocytes % (A) 21 %; Neutrophils # (A) 5.2 k/uL (1.3-7.7); Neutrophils % (A) 66 %; Platelet Count 130 k/uL (150-450); RBC 3.92 m/uL (4.30-5.90); RDW 16.1 % (11.5-15.5); WBC 7.9 k/uL (3.8-10.6)
[2024-03-07 05:01] LABS: African American GFR (CKD) >90 (>60 ml/min/1.73 sqM); Anion Gap 6 mmol/L; Blood Urea Nitrogen 2 mg/dL (9-20); Calcium 8.4 mg/dL (8.4-10.2); Carbon Dioxide 24 mmol/L (22-30); Chloride 105 mmol/L (98-107); Glucose 91 mg/dL (74-99); Magnesium 1.6 mg/dL (1.6-2.3); Non-African American GFR(CKD) >90 (>60 ml/min/1.73 sqM); Potassium 3.7 mmol/L (3.5-5.1); Sodium 135 mmol/L (137-145)
[2024-03-07] MEDS ORDERED: Potassium Replacement Protocol 1 EACH MISC MISCELLANE PRN ×2 (05:28→12:54)
[2024-03-07] MEDS ORDERED: Magnesium Replacement Protocol 1 EACH MISC MISCELLANE PRN (05:28)
[2024-03-07] MEDS: MAGNESIUM SULFATE-D5W PMX 1 GM in DEXTROSE/WATER 1 100ML.BAG IVPB SCH (06:24)
[2024-03-07] MEDS: POTASSIUM CHLORIDE ER 20 MEQ TAB.ER PO SCH ×3 (06:25→18:16)
--- NOTE | 2024-03-07 08:24 | XR ---
EXAMINATION TYPE: XR chest 1V portable DATE OF EXAM: 03/07/2024 COMPARISON: 03/06/2024 HISTORY: Chest pain TECHNIQUE: Single frontal view of the chest is obtained. FINDINGS: Interval removal of endotracheal and NG tubes. Right perihilar density persists with elevation right hemidiaphragm. Underlying infiltrate or atelectasis not excluded. The cardiac silhouette size is with in normal limits. The osseous structures are intact. IMPRESSION: 1. Right perihilar density persists with elevation right hemidiaphragm. Underlying infiltrate or ate lectasis not excluded.
[2024-03-07] MEDS: ENOXAPARIN 40 MG/0.4 ML SYRINGE SQ SCH (09:18)
[2024-03-07] MEDS: cloNIDine HCL 0.1 MG TAB PO SCH (09:45)
[2024-03-07 11:37] LABS: Glucose,Whole Blood 99 mg/dL (70-110)
--- NOTE | 2024-03-07 12:44 | P.PN ---
Subjective Progress Note Date: 03/07/24 Principal diagnosis: Acute delirium tremens with severe agitation requiring intubation mechanical ventilation This is a 43-year-old male patient got transferred to the intensive care unit because of alcohol withdrawal and active delirium tremens. The patient has history of alcoholism and the patient was sent to our emergency department from [place] for ongoing hallucinations. The patient drinks approximately 16 beers on a daily basis and he has been without alcohol for the past 3 days. The patient was receiving Ativan in the emergency department. The patient was talking to individuals were not present. He was actively hallucinating. At times, he was also being agitated. Initially was admitted to the medical floor. He received more than 10 mg of IV Ativan. Following that, due to aggressive behavior and agitation, he was transferred to the intensive care unit and the patient was started on Precedex. His respiratory status is stable and the patient's pulse ox 99% on room air oxygen. The patient remains somewhat agitated. Sitter is at the bedside. Blood pressure is stable, in fact the patient is slightly hypertensive in the has no signs of any significant respiratory distress. The white cell count is at 3.6 and hemoglobin 4.3 and a platelet count of 64. BUN is at 9 with a creatinine of 0.3 and sodium levels at 130. Potassium level of 3.1. LFTs are abnormal consistent with alcoholic liver disease with an AST of 156 and ALT of 85. Normal bilirubin at 1.3. Albumin is at 4.2. The patient is currently in the intensive care unit on Precedex. He is on IV fluids. He is on thiamine. On today's evaluation of 03/03/2024, the patient is being seen for a follow-up. Events from yesterday night were noted. The patient was started initially on Precedex drip. Subsequently Versed drip was added. Nevertheless, we are unable to control his agitation. He was extremely violent and uncontrollable. He was started on propofol and following that he was intubated placed on mechanical ventilator. This morning, the patient is on propofol which is running at 65 mcg/kg/min and Versed drip at 50 mg an hour. He is on normal saline at rate of 100 cc an hour. He is on assist-control of mode of mechanical ventilation at rate of 18, tidal volume of 450, FiO2 of 55% with a PEEP of 5. Blood gas showed a pH of 7.42 with a pCO2 of 33 and pO2 of 273 post intubation and according to the FiO2 was weaned down. Hemodynamically stable. White cell count of 4.3 with a hemoglobin 12.2, platelet count of 69, the electrolytes are stable with a pota ssium level of 3.3, bicarb is at 19, BUN is at 7 with a creatinine of 0.37., Comfortable on mechanical ventilator. Afebrile. Reevaluated on 03/04/2024, patient remains in the ICU, intubated and mechanically ventilated. His vent settings are 18/450/35%/5 he is on assist-control mode of mechanical ventilation ABG showed a pO2 of 134 pCO2 32 pH of 7.40 patient is maintained on Nimbex he is also on Versed at 15 mg/h propofol at 65 mcg/kg/min IV fluid 0.9 normal saline at 100 cc/h. Patient is calm, completely sedated and paralyzed. However I plan to discontinue his Nimbex today, and hopefully maintain him calm on Versed and propofol based on the blood gas, I change his FiO2 to 30% instead of 35% chest x-ray showed no acute pulmonary process. WBC count is 3.8 hemoglobin is 12 electrolytes are normal except for low potassium of 3.2, renal profile is normal. Patient remains on the alcohol withdrawal protocol, remains on Keppra, plan to start enteral feeding/nutritional support today Patient was seen today on 03/05/2024, remains in the ICU, intubated and mechanically ventilated. Patient is on assist-control rate of 18 tidal volume 450 FiO2 30% PEEP of 5 ABG showed a pO2 of 98 pCO2 31 pH of 7.45. Remains on Versed at 13 mg/h propofol at 65 mcg/kg/min IV fluid 0.9 normal saline at 100 cc/h. Patient is calm, sedated, he was taken off Nimbex yesterday, and remains off Nimbex. My plan today is to consider tapering down his sedation and hopefully in the next 24 hours to start addressing weaning parameters and possibly weaning trials. At this point we will work on tapering down the sedation and see how he does over the next 24 hours. In the meantime we will empirically start the patient on antibiotics as the patient is spiking temps as high as 101 last night. Cultures were ordered including sputum cultures blood cultures and urine cultures. Chest x-ray showed no evidence of infiltrate. WBC count remains 5.5 hemoglobin 12.6 basic metabolic profile is normal, renal pr ofile is normal Patient was made today on 03/06/2024, remains in the ICU intubated and mechanically ventilated. Patient is on assist-control rate of 18 tidal volume 450 FiO2 30% PEEP of 5 ABG showed a pO2 of 120 pCO2 27 pH of 7.46. No changes were made in vent settings. Patient remains on propofol at 45 mcg/kg/min he is also on Versed at 5 mg/h receiving vital HP at 42 cc/h. Which is the goal. Magnesium is low today at 1.1, that is being corrected as per protocol. Patient is calm, fully sedated, instructed nursing staff to cut down on his sedation, hopefully discontinue Versed, and hopefully assess mental status on a lower dose of sedation, and even consider weaning parameters. Chest x-ray showed no evidence of active disease. CBC is relatively normal. Electrolytes showed low potassium of 3.2 and low magnesium being addressed accordingly. Patient was seen today on 03/07/2024, patient is doing well, he was extubated yesterday, relatively asymptomatic. Hardly any pulmonary symptoms. His labs are unremarkable including a normal CBC and normal basic metabolic profile chest x-ray today showed slightly elevated right hemidiaphragm, minimal atelectasis, no evidence of active infiltrates Objective - Vital Signs Vital signs: Vital Signs Temp 100.2 F H 03/07/24 12:00 Pulse 91 03/07/24 12:00 Resp 28 H 03/07/24 12:00 BP 140/90 03/07/24 12:00 Pulse Ox 94 L 03/07/24 12:00 FiO2 30 03/06/24 12:00 Intake & Output 03/06/24 03/07/24 03/07/24 18:59 06:59 18:59 Intake Total 9902.355 9155 918 Output Total 1625 2705 690 Balance 293.994 -1322 228 Weight 77.8 kg 74 kg Intake: IV 1700 1383 718 Arterial Line Pressure 33 18 Bag Magnesium Sulfate-D5w Pmx 200 1 gm In Dextrose/Water 1 100ml.bag @ 100 mls/hr IVPB ONCE ONE Rx#: [id number] Piperacillin-Tazobactam 3 200 100 100 .375 gm In Sodium Chloride 0.9% 100 ml @ 25 mls/hr IVPB Q8HR [facility] Rx# :[id number] Sodium Chloride 0.9% 1, 1200 1200 600 000 ml @ 100 mls/hr IV . Q10H [facility] Rx#:[id number] Thiamine 500 mg In Sodium 100 50 Chloride 0.9% 50 ml @ 100 mls/hr IVPB TID [facility] Rx#:[id number] Intake, IV Titration 104.994 Amount Midazolam HCl 200 mg In 6.667 Sodium Chloride 0.9% 60 ml @ 15 MG/HR 7.5 mls/hr IV .[id number] [facility] Rx#: [id number] propofoL 1,000 mg In 98.327 Empty Bag 1 bag @ 15 MCG/ KG/MIN 6.45 mls/hr IV . [id number] [facility] Rx#:[id number] Oral 200 Tube Feeding 84 Other 30 Output: Urine 1625 2705 690 Other: Voiding Method Indwelling Catheter Indwelling Catheter Indwelling Catheter ABP, PAP, CO, CI - Last Documented Arterial Blood Pressure 169/78 - Exam GENERAL: Revealed 43-year-old white male on nasal cannula, not in distress Head: Atraumatic, normocephalic. HEENT: PERRLA, EOMI, nonicteric, moist mucous membranes. CARDIOVASCULAR: Normal S1-S2, no S3 gallop. PULMONARY: Diminished breath sound bilaterally no crackles rhonchi or wheezes ABDOMEN: Nontender no megaly no rebound soft, positive bowel sounds. MUSCULOSKELETAL: No deformities. EXTREMITIES: No clubbing no edema no cyanosis NEUROLOGICAL: Alert and oriented x 3 no gross focal deficit except noted to be generally weak Psychiatric: Normal mood affect and no mental status examination Skin: No rash - Labs CBC & Chem 7: 03/07/24 04:07 03/07/24 04:07 Labs: Abnormal Lab Results - Last 24 Hours (Table) 03/06/24 03/07/24 03/07/24 Range/Units 13:59 04:07 04:07 RBC 3.92 L (4.30-5.90) m/uL Hgb 12.0 L (13.0-17.5) gm/dL Hct 37.0 L (39.0-53.0) % RDW 16.1 H (11.5-15.5) % Plt Count 130 L (150-450) k/uL Lymphocytes # 0.7 L (1.0-4.8) k/uL Monocytes # 1.6 H (0-1.0) k/uL ABG pH 7.48 H (7.35-7.45) ABG pCO2 34 L (35-45) mmHg ABG HCO3 26 H (21-25) mmol/L ABG Total CO2 27 H (19-24) mmol/L ABG O2 Saturation 98.0 H (94-97) % Sodium 135 L (137-145) mmol/L BUN 2 L (9-20) mg/dL Creatinine 0.33 L (0.66-1.25) mg/dL Microbiology - Last 24 Hours (Table) 03/05/24 21:08 Gram Stain - Preliminary Sputum Sputum Culture - Preliminary 03/05/24 08:44 Blood Culture - Preliminary Blood Assessment and Plan Assessment: Impression:Acute delirium tremens requiring intubation mechanical ventilation. Extubated on 03/06/2024 Alcoholism Chronic thrombocytopenia related to alcoholism Acute transaminitis secondary to alcoholism History of depression History of seizure disorder, maintained on Keppra Benign essential hypertension Intermittent episodes of fever, cultures are nondiagnostic, patient is empirically on Zosyn Recommendation: Will continue to monitor in the ICU for the next 24 hours Continue antibiotics empirically Continue GI and DVT prophylaxis including IV Protonix and compression devices Advance diet as tolerated Continue thiamine and alcohol withdrawal protocol Will continue to follow Time with Patient: Less than 30
--- NOTE | 2024-03-07 13:17 | P.PN ---
Subjective Progress Note Date: 03/07/24 patient is 43 years old gentleman past medical history significant for alcohol abuse who was sent into ER from [place] for hallucinations. Patient drinks up to 16 beers per day and has been without alcohol for the last 3 days. Patient was being evaluated at [place] and was receiving Ativan in the ER. Patient has been seen talking to people who were not there. Patient also reported that there was a beer attacking a person. There was no complaint suicidal thoughts. No complaint of nausea, vomiting abdominal pain. Denies any chest pain or shortness of breath. Because of the symptoms, patient was transferred to ER Initial lab work done in the ER showed WBC 3.6, hemoglobin 12.3, platelet count 64, sodium 133, potassium 3.1, chloride 99, carbon is a 27, anion gap 7, creatinine 0.39, glucose 90, magnesium 1 Patient admitted to internal medicine service 03/03. Patient seen and examined. Patient was transferred to ICU yesterday and was later intubated secondary to increased agitation. Patient currently on propofol 03/04. Patient seen and examined.Blood work done this morning showed WBC 3.8, hemoglobin 12, platelet count 70, sodium 131, potassium 3.2, BUN 2, creatinine 0.29. Patient currently Nimbex drip 03/05. Patient seen and examined. Continues to be intubated. Patient had low- grade fevers overnight. Started on IV Zosyn. Patient is off Nimbex now 03/06. Patient seen and examined. Patient opening his eyes. Patient had low- grade fevers overnight again. Patient being given sedation holiday today. 03/07. Patient examined. Patient has been extubated since yesterday, currently on room air. Patient is sitting calmly in the chair, not in acute distress. REVIEW OF SYSTEMS: Denies chest pain Denies shortness of breath Denies nausea or vomiting PHYSICAL EXAMINATION: GENERAL: The patient is alert and oriented currently x 3 HEENT: Pupils are round and equally reacting to light. EOMI. No scleral icterus. No conjunctival pallor. Normocephalic, atraumatic. No pharyngeal erythema. No thyromegaly. CARDIOVASCULAR: S1 and S2 present. No murmurs, rubs, or gallops. PULMONARY: Chest is clear to auscultation, no wheezing or crackles. ABDOMEN: Soft, nontender, nondistended, normoactive bowel sounds. No palpable organomegaly. MUSCULOSKELETAL: No joint swelling or deformity. EXTREMITIES: No cyanosis, clubbing, or pedal edema. NEUROLOGICAL: Alert, moving all extremities SKIN: No rashes. Assessment and plan Acute hypoxic respiratory failure Alcohol abuse Impending DTs Alcohol detox Hypomagnesemia Hyponatremia Hypokalemia Thrombocytopenia Acute transaminitis Monitor vital signs Monitor CBC Monitor CMP Aggressive bronchopulmonary hygiene Encourage use of I-S Continue IV Zosyn Continue high-dose thiamine and folic acid Continue CIWA protocol ICU following Psychiatry following Labs and medication were reviewed.. Continue same treatment. Continue with symptomatic treatment. Resume home medication. Monitor labs and vitals. DVT and GI prophylaxis. Further recommendations as per clinical course of the patient Dictation was produced using [employer] dictation software. please excuse any grammatical, word or spelling errors. Objective - Vital Signs Vital signs: Vital Signs Temp 100.2 F H 03/07/24 12:00 Pulse 91 03/07/24 12:00 Resp 28 H 03/07/24 12:00 BP 140/90 03/07/24 12:00 Pulse Ox 94 L 03/07/24 12:00 FiO2 30 03/06/24 12:00 Intake & Output 03/06/24 03/07/24 03/07/24 18:59 06:59 18:59 Intake Total 3931.470 3981 918 Output Total 1625 2705 690 Balance 293.994 -1322 228 Weight 77.8 kg 74 kg Intake: IV 1700 1383 718 Arterial Line Pressure 33 18 Bag Magnesium Sulfate-D5w Pmx 200 1 gm In Dextrose/Water 1 100ml.bag @ 100 mls/hr IVPB ONCE ONE Rx#: [id number] Piperacillin-Tazobactam 3 200 100 100 .375 gm In Sodium Chloride 0.9% 100 ml @ 25 mls/hr IVPB Q8HR [facility] Rx# :[id number] Sodium Chloride 0.9% 1, 1200 1200 600 000 ml @ 100 mls/hr IV . Q10H [facility] Rx#:[id number] Thiamine 500 mg In Sodium 100 50 Chloride 0.9% 50 ml @ 100 mls/hr IVPB TID [facility] Rx#:[id number] Intake, IV Titration 104.994 Amount Midazolam HCl 200 mg In 6.667 Sodium Chloride 0.9% 60 ml @ 15 MG/HR 7.5 mls/hr IV .[id number] [facility] Rx#: [id number] propofoL 1,000 mg In 98.327 Empty Bag 1 bag @ 15 MCG/ KG/MIN 6.45 mls/hr IV . [id number] [facility] Rx#:[id number] Oral 200 Tube Feeding 84 Other 30 Output: Urine 1625 2705 690 Other: Voiding Method Indwelling Catheter Indwelling Catheter Indwelling Catheter ABP, PAP, CO, CI - Last Documented Arterial Blood Pressure 169/78 - Labs CBC & Chem 7: 03/07/24 04:07 03/07/24 11:45 Labs: Abnormal Lab Results - Last 24 Hours (Table) 03/06/24 03/07/24 03/07/24 Range/Units 13:59 04:07 04:07 RBC 3.92 L (4.30-5.90) m/uL Hgb 12.0 L (13.0-17.5) gm/dL Hct 37.0 L (39.0-53.0) % RDW 16.1 H (11.5-15.5) % Plt Count 130 L (150-450) k/uL Lymphocytes # 0.7 L (1.0-4.8) k/uL Monocytes # 1.6 H (0-1.0) k/uL ABG pH 7.48 H (7.35-7.45) ABG pCO2 34 L (35-45) mmHg ABG HCO3 26 H (21-25) mmol/L ABG Total CO2 27 H (19-24) mmol/L ABG O2 Saturation 98.0 H (94-97) % Sodium 135 L (137-145) mmol/L BUN 2 L (9-20) mg/dL Creatinine 0.33 L (0.66-1.25) mg/dL Microbiology - Last 24 Hours (Table) 03/05/24 21:08 Gram Stain - Preliminary Sputum Sputum Culture - Preliminary 03/05/24 08:44 Blood Culture - Preliminary Blood
[2024-03-08] MEDS: QUEtiapine 25 MG TAB PO SCH (00:25)
[2024-03-08] MEDS ORDERED: Potassium Replacement Protocol 1 EACH MISC MISCELLANE PRN (03:32)
[2024-03-08] MEDS: POTASSIUM CHLORIDE ER 20 MEQ TAB.ER PO SCH (03:41)
[2024-03-08] MEDS ORDERED: Magnesium Replacement Protocol 1 EACH MISC MISCELLANE PRN (06:16)
[2024-03-08] MEDS: MAGNESIUM SULFATE-D5W PMX 1 GM in DEXTROSE/WATER 1 100ML.BAG IVPB SCH (06:24)
--- NOTE | 2024-03-08 12:13 | P.PN ---
Subjective Progress Note Date: 03/08/24 Principal diagnosis: Acute delirium tremens with severe agitation requiring intubation mechanical ventilation This is a 43-year-old male patient got transferred to the intensive care unit because of alcohol withdrawal and active delirium tremens. The patient has history of alcoholism and the patient was sent to our emergency department from [place] for ongoing hallucinations. The patient drinks approximately 16 beers on a daily basis and he has been without alcohol for the past 3 days. The patient was receiving Ativan in the emergency department. The patient was talking to individuals were not present. He was actively hallucinating. At times, he was also being agitated. Initially was admitted to the medical floor. He received more than 10 mg of IV Ativan. Following that, due to aggressive behavior and agitation, he was transferred to the intensive care unit and the patient was started on Precedex. His respiratory status is stable and the patient's pulse ox 99% on room air oxygen. The patient remains somewhat agitated. Sitter is at the bedside. Blood pressure is stable, in fact the patient is slightly hypertensive in the has no signs of any significant respiratory distress. The white cell count is at 3.6 and hemoglobin 4.3 and a platelet count of 64. BUN is at 9 with a creatinine of 0.3 and sodium levels at 130. Potassium level of 3.1. LFTs are abnormal consistent with alcoholic liver disease with an AST of 156 and ALT of 85. Normal bilirubin at 1.3. Albumin is at 4.2. The patient is currently in the intensive care unit on Precedex. He is on IV fluids. He is on thiamine. On today's evaluation of 03/03/2024, the patient is being seen for a follow-up. Events from yesterday night were noted. The patient was started initially on Precedex drip. Subsequently Versed drip was added. Nevertheless, we are unable to control his agitation. He was extremely violent and uncontrollable. He was started on propofol and following that he was intubated placed on mechanical ventilator. This morning, the patient is on propofol which is running at 65 mcg/kg/min and Versed drip at 50 mg an hour. He is on normal saline at rate of 100 cc an hour. He is on assist-control of mode of mechanical ventilation at rate of 18, tidal volume of 450, FiO2 of 55% with a PEEP of 5. Blood gas showed a pH of 7.42 with a pCO2 of 33 and pO2 of 273 post intubation and according to the FiO2 was weaned down. Hemodynamically stable. White cell count of 4.3 with a hemoglobin 12.2, platelet count of 69, the electrolytes are stable with a pota ssium level of 3.3, bicarb is at 19, BUN is at 7 with a creatinine of 0.37., Comfortable on mechanical ventilator. Afebrile. Reevaluated on 03/04/2024, patient remains in the ICU, intubated and mechanically ventilated. His vent settings are 18/450/35%/5 he is on assist-control mode of mechanical ventilation ABG showed a pO2 of 134 pCO2 32 pH of 7.40 patient is maintained on Nimbex he is also on Versed at 15 mg/h propofol at 65 mcg/kg/min IV fluid 0.9 normal saline at 100 cc/h. Patient is calm, completely sedated and paralyzed. However I plan to discontinue his Nimbex today, and hopefully maintain him calm on Versed and propofol based on the blood gas, I change his FiO2 to 30% instead of 35% chest x-ray showed no acute pulmonary process. WBC count is 3.8 hemoglobin is 12 electrolytes are normal except for low potassium of 3.2, renal profile is normal. Patient remains on the alcohol withdrawal protocol, remains on Keppra, plan to start enteral feeding/nutritional support today Patient was seen today on 03/05/2024, remains in the ICU, intubated and mechanically ventilated. Patient is on assist-control rate of 18 tidal volume 450 FiO2 30% PEEP of 5 ABG showed a pO2 of 98 pCO2 31 pH of 7.45. Remains on Versed at 13 mg/h propofol at 65 mcg/kg/min IV fluid 0.9 normal saline at 100 cc/h. Patient is calm, sedated, he was taken off Nimbex yesterday, and remains off Nimbex. My plan today is to consider tapering down his sedation and hopefully in the next 24 hours to start addressing weaning parameters and possibly weaning trials. At this point we will work on tapering down the sedation and see how he does over the next 24 hours. In the meantime we will empirically start the patient on antibiotics as the patient is spiking temps as high as 101 last night. Cultures were ordered including sputum cultures blood cultures and urine cultures. Chest x-ray showed no evidence of infiltrate. WBC count remains 5.5 hemoglobin 12.6 basic metabolic profile is normal, renal pr ofile is normal Patient was made today on 03/06/2024, remains in the ICU intubated and mechanically ventilated. Patient is on assist-control rate of 18 tidal volume 450 FiO2 30% PEEP of 5 ABG showed a pO2 of 120 pCO2 27 pH of 7.46. No changes were made in vent settings. Patient remains on propofol at 45 mcg/kg/min he is also on Versed at 5 mg/h receiving vital HP at 42 cc/h. Which is the goal. Magnesium is low today at 1.1, that is being corrected as per protocol. Patient is calm, fully sedated, instructed nursing staff to cut down on his sedation, hopefully discontinue Versed, and hopefully assess mental status on a lower dose of sedation, and even consider weaning parameters. Chest x-ray showed no evidence of active disease. CBC is relatively normal. Electrolytes showed low potassium of 3.2 and low magnesium being addressed accordingly. Patient was seen today on 03/07/2024, patient is doing well, he was extubated yesterday, relatively asymptomatic. Hardly any pulmonary symptoms. His labs are unremarkable including a normal CBC and normal basic metabolic profile chest x-ray today showed slightly elevated right hemidiaphragm, minimal atelectasis, no evidence of active infiltrates Patient was evaluated today on 03/08/2024, remains in the ICU, doing great, relatively asymptomatic. Patient is only complaining that he did not get much sleep last night, denies any cough wheezing shortness of breath or chest pain. Magnesium remains low at 1.5, patient still having intermittent PVCs. But no symptoms Objective - Vital Signs Vital signs: Vital Signs Temp 99.1 F 03/08/24 08:00 Pulse 90 03/08/24 11:00 Resp 16 03/08/24 11:00 BP 154/109 03/08/24 11:00 Pulse Ox 95 03/08/24 11:00 FiO2 30 03/06/24 12:00 Intake & Output 03/07/24 03/08/24 03/08/24 18:59 06:59 18:59 Intake Total 1777 1450 795 Output Total 1445 2225 845 Balance 332 -775 -50 Weight 73.028 kg Intake: IV 1377 1350 395 Arterial Line Pressure 27 Bag Piperacillin-Tazobactam 3 200 100 100 .375 gm In Sodium Chloride 0.9% 100 ml @ 25 mls/hr IVPB Q8HR [facility] Rx# :[id number] Sodium Chloride 0.9% 1, 1100 1200 245 000 ml @ 10 mls/hr IV . Q24H [facility] Rx#:[id number] Thiamine 500 mg In Sodium 50 50 50 Chloride 0.9% 50 ml @ 100 mls/hr IVPB TID [facility] Rx#:[id number] Intake, IV Titration 200 Amount Magnesium Sulfate-D5w Pmx 100 1 gm In Dextrose/Water 1 100ml.bag @ 100 mls/hr IVPB Q1H [facility] Rx#: [id number] Piperacillin-Tazobactam 3 100 .375 gm In Sodium Chloride 0.9% 100 ml @ 25 mls/hr IVPB Q8HR [facility] Rx# :[id number] Oral 400 100 200 Output: Urine 1445 2225 845 Other: Voiding Method Indwelling Catheter Indwelling Catheter Indwelling Catheter ABP, PAP, CO, CI - Last Documented Arterial Blood Pressure 152/72 - Exam GENERAL: Revealed 43-year-old white male on nasal cannula, not in distress, on room air Head: Atraumatic, normocephalic. HEENT: PERRLA, EOMI, nonicteric, moist mucous membranes. CARDIOVASCULAR: Normal S1-S2, no S3 gallop. PULMONARY: Diminished breath sound bilaterally no crackles rhonchi or wheezes ABDOMEN: Nontender no megaly no rebound soft, positive bowel sounds. MUSCULOSKELETAL: No deformities. EXTREMITIES: No clubbing no edema no cyanosis NEUROLOGICAL: Alert and oriented x 3 no gross focal deficit except noted to be generally weak Psychiatric: Normal mood affect and no mental status examination Skin: No rash - Labs CBC & Chem 7: 03/07/24 04:07 03/08/24 00:21 Labs: Abnormal Lab Results - Last 24 Hours (Table) 03/08/24 Range/Units 05:32 Magnesium 1.5 L (1.6-2.3) mg/dL Microbiology - Last 24 Hours (Table) 03/05/24 21:08 Gram Stain - Final Sputum Sputum Culture - Final 03/05/24 08:44 Blood Culture - Preliminary Blood Assessment and Plan Assessment: Impression: Acute delirium tremens requiring intubation mechanical ventilation. Extubated on 03/06/2024, his delirium has resolved History of alcoholism Chronic thrombocytopenia related to alcoholism Acute transaminitis secondary to alcoholism History of depression History of seizure disorder, maintained on Keppra Benign essential hypertension Intermittent episodes of fever, cultures are nondiagnostic, patient is empi rically on Zosyn Recommendation: Transfer patient out of the ICU to regular medical floor Discontinue antibiotic Continue GI and DVT prophylaxis including IV Protonix and compression devices Advance diet as tolerated Continue thiamine and alcohol withdrawal protocol Consider discharge planning in the next 24 to 48 hours Will continue to follow Time with Patient: Less than 30
[2024-03-08 12:23] LABS: Anisocytosis Slight; HCT 38.2 % (39.0-53.0); HGB 12.1 gm/dL (13.0-17.5); MCH 29.9 pg (25.0-35.0); MCHC 31.6 g/dL (31.0-37.0); MCV 94.8 fL (80.0-100.0); Mean Platelet Volume 11.7; Platelet Count 186 k/uL (150-450); RBC 4.03 m/uL (4.30-5.90); RDW 16.2 % (11.5-15.5); WBC 5.4 k/uL (3.8-10.6)
[2024-03-08 13:16] LABS: African American GFR (CKD) >90 (>60 ml/min/1.73 sqM); Anion Gap 8 mmol/L; Blood Urea Nitrogen 4 mg/dL (9-20); Calcium 8.4 mg/dL (8.4-10.2); Carbon Dioxide 21 mmol/L (22-30); Chloride 95 mmol/L (98-107); Glucose 292 mg/dL (74-99); Non-African American GFR(CKD) >90 (>60 ml/min/1.73 sqM); Potassium 3.6 mmol/L (3.5-5.1); Sodium 124 mmol/L (137-145)
--- NOTE | 2024-03-08 13:20 | P.PN ---
Subjective Progress Note Date: 03/08/24 patient is 43 years old gentleman past medical history significant for alcohol abuse who was sent into ER from [place] for hallucinations. Patient drinks up to 16 beers per day and has been without alcohol for the last 3 days. Patient was being evaluated at [place] and was receiving Ativan in the ER. Patient has been seen talking to people who were not there. Patient also reported that there was a beer attacking a person. There was no complaint suicidal thoughts. No complaint of nausea, vomiting abdominal pain. Denies any chest pain or shortness of breath. Because of the symptoms, patient was transferred to ER Initial lab work done in the ER showed WBC 3.6, hemoglobin 12.3, platelet count 64, sodium 133, potassium 3.1, chloride 99, carbon is a 27, anion gap 7, creatinine 0.39, glucose 90, magnesium 1 Patient admitted to internal medicine service 03/03. Patient seen and examined. Patient was transferred to ICU yesterday and was later intubated secondary to increased agitation. Patient currently on propofol 03/04. Patient seen and examined.Blood work done this morning showed WBC 3.8, hemoglobin 12, platelet count 70, sodium 131, potassium 3.2, BUN 2, creatinine 0.29. Patient currently Nimbex drip 03/05. Patient seen and examined. Continues to be intubated. Patient had low- grade fevers overnight. Started on IV Zosyn. Patient is off Nimbex now 03/06. Patient seen and examined. Patient opening his eyes. Patient had low- grade fevers overnight again. Patient being given sedation holiday today. 03/07. Patient examined. Patient has been extubated since yesterday, currently on room air. Patient is sitting calmly in the chair, not in acute distress. 02/17 1. Patient seen and examined. Complaining of forgetfulness. Denies any auditory or visual hallucinations REVIEW OF SYSTEMS: Denies chest pain Denies shortness of breath Denies nausea or vomiting denies any lethargy or weakness PHYSICAL EXAMINATION: GENERAL: The patient is alert and oriented currently x 3 HEENT: Pupils are round and equally reacting to light. EOMI. No scleral icterus. No conjunctival pallor. Normocephalic, atraumatic. No pharyngeal erythema. No thyromegaly. CARDIOVASCULAR: S1 and S2 present. No murmurs, rubs, or gallops. PULMONARY: Chest is clear to auscultation, no wheezing or crackles. ABDOMEN: Soft, nontender, nondistended, normoactive bowel sounds. No palpable organomegaly. MUSCULOSKELETAL: No joint swelling or deformity. EXTREMITIES: No cyanosis, clubbing, or pedal edema. NEUROLOGICAL: Alert, moving all extremities SKIN: No rashes. Assessment and plan Acute hypoxic respiratory failure Alcohol abuse Impending DTs Alcohol detox Hypomagnesemia Hyponatremia Hypokalemia Thrombocytopenia Acute transaminitis Monitor vital signs Monitor CBC Monitor CMP Aggressive bronchopulmonary hygiene Encourage use of I-S DC IV Zosyn Continue high-dose thiamine and folic acid Continue CIWA protocol ICU following Psychiatry following Discharge out of ICU Labs and medication were reviewed.. Continue same treatment. Continue with symptomatic treatment. Resume home medication. Monitor labs and vitals. DVT and GI prophylaxis. Further recommendations as per clinical course of the patient Dictation was produced using [employer] dictation software. please excuse any grammatical, word or spelling errors. Objective - Vital Signs Vital signs: Vital Signs Temp 99.1 F 03/08/24 08:00 Pulse 90 03/08/24 11:00 Resp 16 03/08/24 11:00 BP 154/109 03/08/24 11:00 Pulse Ox 95 03/08/24 11:00 FiO2 30 03/06/24 12:00 Intake & Output 03/07/24 03/08/24 03/08/24 18:59 06:59 18:59 Intake Total 1777 1450 795 Output Total 1445 2225 845 Balance 332 -775 -50 Weight 73.028 kg Intake: IV 1377 1350 395 Arterial Line Pressure 27 Bag Piperacillin-Tazobactam 3 200 100 100 .375 gm In Sodium Chloride 0.9% 100 ml @ 25 mls/hr IVPB Q8HR [facility] Rx# :[id number] Sodium Chloride 0.9% 1, 1100 1200 245 000 ml @ 10 mls/hr IV . Q24H [facility] Rx#:[id number] Thiamine 500 mg In Sodium 50 50 50 Chloride 0.9% 50 ml @ 100 mls/hr IVPB TID [facility] Rx#:[id number] Intake, IV Titration 200 Amount Magnesium Sulfate-D5w Pmx 100 1 gm In Dextrose/Water 1 100ml.bag @ 100 mls/hr IVPB Q1H [facility] Rx#: [id number] Piperacillin-Tazobactam 3 100 .375 gm In Sodium Chloride 0.9% 100 ml @ 25 mls/hr IVPB Q8HR [facility] Rx# :[id number] Oral 400 100 200 Output: Urine 1445 2225 845 Other: Voiding Method Indwelling Catheter Indwelling Catheter Indwelling Catheter ABP, PAP, CO, CI - Last Documented Arterial Blood Pressure 152/72 - Labs CBC & Chem 7: 03/08/24 05:32 03/08/24 12:25 Labs: Abnormal Lab Results - Last 24 Hours (Table) 03/08/24 03/08/24 03/08/24 Range/Units 05:32 05:32 12:25 RBC 4.03 L (4.30-5.90) m/uL Hgb 12.1 L (13.0-17.5) gm/dL Hct 38.2 L (39.0-53.0) % RDW 16.2 H (11.5-15.5) % Sodium 124 L (137-145) mmol/L Chloride 95 L (98-107) mmol/L Carbon Dioxide 21 L (22-30) mmol/L BUN 4 L (9-20) mg/dL Creatinine 0.29 L (0.66-1.25) mg/dL Glucose 292 H (74-99) mg/dL Magnesium 1.5 L (1.6-2.3) mg/dL Microbiology - Last 24 Hours (Table) 03/05/24 21:08 Gram Stain - Final Sputum Sputum Culture - Final 03/05/24 08:44 Blood Culture - Preliminary Blood
[2024-03-08 13:27] LABS: Band Neutrophils % 1 %; Eosinophils # (M) 0.11 k/uL (0-0.7); Lymphocytes # (M) 0.86 k/uL (1.0-4.8); Metamyelocytes # (M) 0.05 k/uL (0); Metamyelocytes % 1 %; Monocytes # (M) 1.89 k/uL (0-1.0); Myelocytes # (M) 0.05 k/uL (0); Myelocytes % 1 %; Neutrophils % (M) 46 %; Nucleated Red Blood Cells 0 /100 WBC (0-0); Total Cells Counted 200
--- NOTE | 2024-03-09 11:07 | P.PN ---
Subjective Progress Note Date: 03/09/24 This is a 43-year-old male patient got transferred to the intensive care unit because of alcohol withdrawal and active delirium tremens. The patient has history of alcoholism and the patient was sent to our emergency department from [place] for ongoing hallucinations. The patient drinks approximately 16 beers on a daily basis and he has been without alcohol for the past 3 days. The patient was receiving Ativan in the emergency department. The patient was talking to individuals were not present. He was actively hallucinating. At times, he was also being agitated. Initially was admitted to the medical floor. He received more than 10 mg of IV Ativan. Following that, due to aggressive be havior and agitation, he was transferred to the intensive care unit and the patient was started on Precedex. His respiratory status is stable and the patient's pulse ox 99% on room air oxygen. The patient remains somewhat agitated. Sitter is at the bedside. Blood pressure is stable, in fact the patient is slightly hypertensive in the has no signs of any significant respiratory distress. The white cell count is at 3.6 and hemoglobin 4.3 and a platelet count of 64. BUN is at 9 with a creatinine of 0.3 and sodium levels at 130. Potassium level of 3.1. LFTs are abnormal consistent with alcoholic liver disease with an AST of 156 and ALT of 85. Normal bilirubin at 1.3. Albumin is at 4.2. The patient is currently in the intensive care unit on Precedex. He is on IV fluids. He is on thiamine. On today's evaluation of 03/03/2024, the patient is being seen for a follow-up. Events from yesterday night were noted. The patient was started initially on Precedex drip. Subsequently Versed drip was added. Nevertheless, we are unable to control his agitation. He was extremely violent and uncontrollable. He was started on propofol and following that he was intubated placed on mechanical ventilator. This morning, the patient is on propofol which is running at 65 mcg/kg/min and Versed drip at 50 mg an hour. He is on normal saline at rate of 100 cc an hour. He is on assist-control of mode of mechanical ventilation at rate of 18, tidal volume of 450, FiO2 of 55% with a PEEP of 5. Blood gas showed a pH of 7.42 with a pCO2 of 33 and pO2 of 273 post intubation and according to the FiO2 was weaned down. Hemodynamically stable. White cell count of 4.3 with a hemoglobin 12.2, platelet count of 69, the electrolytes are stable with a potassium level of 3.3, bicarb is at 19, BUN is at 7 with a creatinine of 0.37., Comfortable on mechanical ventilator. Afebrile. Reevaluated on 03/04/2024, patient remains in the ICU, intubated and mechanically ventilated. His vent settings are 18/450/35%/5 he is on assist-control mode of mechanical ventilation ABG showed a pO2 of 134 pCO2 32 pH of 7.40 patient is maintained on Nimbex he is also on Versed at 15 mg/h propofol at 65 mcg/kg/min IV fluid 0.9 normal saline at 100 cc/h. Patient is calm, completely sedated and paralyzed. However I plan to discontinue his Nimbex today, and hopefully maintain him calm on Versed and propofol based on the blood gas, I change his FiO2 to 30% instead of 35% chest x-ray showed no acute pulmonary process. WBC count is 3.8 hemoglobin is 12 electrolytes are normal except for low potassium of 3.2, renal profile is normal. Patient remains on the alcohol withdrawal protocol, remains on Keppra, plan to start enteral feeding/nutritional support today Patient was seen today on 03/05/2024, remains in the ICU, intubated and mechanically ventilated. Patient is on assist-control rate of 18 tidal volume 450 FiO2 30% PEEP of 5 ABG showed a pO2 of 98 pCO2 31 pH of 7.45. Remains on Versed at 13 mg/h propofol at 65 mcg/kg/min IV fluid 0.9 normal saline at 100 cc/h. Patient is calm, sedated, he was taken off Nimbex yesterday, and remains off Nimbex. My plan today is to consider tapering down his sedation and hopefully in the next 24 hours to start addressing weaning parameters and possibly weaning trials. At this point we will work on tapering down the sedation and see how he does over the next 24 hours. In the meantime we will empirically start the patient on antibiotics as the patient is spiking temps as high as 101 last night. Cultures were ordered including sputum cultures blood cultures and urine cultures. Chest x-ray showed no evidence of infiltrate. WBC count remains 5.5 hemoglobin 12.6 basic metabolic profile is normal, renal profile is normal Patient was made today on 03/06/2024, remains in the ICU intubated and mechanically ventilated. Patient is on assist-control rate of 18 tidal volume 450 FiO2 30% PEEP of 5 ABG showed a pO2 of 120 pCO2 27 pH of 7.46. No changes were made in vent settings. Patient remains on propofol at 45 mcg/kg/min he is also on Versed at 5 mg/h receiving vital HP at 42 cc/h. Which is the goal. Magnesium is low today at 1.1, that is being corrected as per protocol. Patient is calm, fully sedated, instructed nursing staff to cut down on his sedation, hopefully discontinue Versed, and hopefully assess mental status on a lower dose of sedation, and even consider weaning parameters. Chest x-ray showed no evidence of active disease. CBC is relatively normal. Electrolytes showed low potassium of 3.2 and low magnesium being addressed accordingly. Patient was seen today on 03/07/2024, patient is doing well, he was extubated yesterday, relatively asymptomatic. Hardly any pulmonary symptoms. His labs are unremarkable including a normal CBC and normal basic metabolic profile chest x-ray today showed slightly elevated right hemidiaphragm, minimal atelectasis, no evidence of active infiltrates Patient was evaluated today on 03/08/2024, remains in the ICU, doing great, relatively asymptomatic. Patient is only complaining that he did not get much sleep last night, denies any cough wheezing shortness of breath or chest pain. Magnesium remains low at 1.5, patient still having intermittent PVCs. But no symptoms The patient is seen today March 09, 2024 in follow-up on the regular medical floor. He is currently awake and alert in no acute distress. He is oriented x 3. He is maintaining good O2 saturations in the 90s on room air. States he slept well last night. Magnesium remains low at 1.4. Being replaced. He is continue on Lovenox for DVT prophylaxis. Remains on the CIWA protocol. NicoDerm patch in place. Continued on antibiotics in the form of Zosyn. Objective - Vital Signs Vital signs: Vital Signs Temp 98.2 F 03/09/24 08:00 Pulse 67 03/09/24 08:00 Resp 15 06/22/24 08:00 BP 162/89 03/09/24 08:00 Pulse Ox 93 L 03/09/24 08:00 FiO2 30 03/06/24 12:00 Intake & Output 03/08/24 03/09/24 03/09/24 18:59 06:59 18:59 Intake Total 795 Output Total 1395 1575 Balance -600 -1575 Intake: IV 395 Piperacillin-Tazobactam 3 100 .375 gm In Sodium Chloride 0.9% 100 ml @ 25 mls/hr IVPB Q8HR [facility] Rx# :[id number] Sodium Chloride 0.9% 1, 245 000 ml @ 10 mls/hr IV . Q24H [facility] Rx#:[id number] Thiamine 500 mg In Sodium 50 Chloride 0.9% 50 ml @ 100 mls/hr IVPB TID [facility] Rx#:[id number] Intake, IV Titration 200 Amount Magnesium Sulfate-D5w Pmx 100 1 gm In Dextrose/Water 1 100ml.bag @ 100 mls/hr IVPB Q1H [facility] Rx#: [id number] Piperacillin-Tazobactam 3 100 .375 gm In Sodium Chloride 0.9% 100 ml @ 25 mls/hr IVPB Q8HR [facility] Rx# :[id number] Oral 200 Output: Urine 1395 1575 Other: Voiding Method Indwelling Catheter Urinal Urinal ABP, PAP, CO, CI - Last Documented Arterial Blood Pressure 152/72 - Exam GENERAL EXAM: Alert, active, cooperative 43-year-old male, on room air, co mfortable in no apparent distress. HEAD: Normocephalic. EYES: Normal reaction of pupils, equal size. NOSE: Clear with pink turbinates. THROAT: No erythema or exudates. NECK: No masses, no JVD. CHEST: No chest wall deformity. LUNGS: Equal air entry with no crackles, wheeze, rhonchi or dullness. CVS: S1 and S2 normal with no audible murmur, regular rhythm. ABDOMEN: No hepatosplenomegaly, normal bowel sounds, no guarding or rigidity. SPINE: No scoliosis or deformity SKIN: No rashes CENTRAL NERVOUS SYSTEM: No focal deficits, tone is normal in all 4 extremities. EXTREMITIES: There is no peripheral edema. No clubbing, no cyanosis. Peripheral pulses are intact. - Labs CBC & Chem 7: 03/08/24 05:32 03/08/24 12:25 Labs: Abnormal Lab Results - Last 24 Hours (Table) 03/08/24 03/08/24 03/09/24 Range/Units 05:32 12:25 06:41 RBC 4.03 L (4.30-5.90) m/uL Hgb 12.1 L (13.0-17.5) gm/dL Hct 38.2 L (39.0-53.0) % RDW 16.2 H (11.5-15.5) % Lymphocytes # (Manual) 0.86 L (1.0-4.8) k/uL Monocytes # (Manual) 1.89 H (0-1.0) k/uL Metamyelocytes # (Man) 0.05 H (0) k/uL Myelocytes # (Manual) 0.05 H (0) k/uL Sodium 124 L (137-145) mmol/L Chloride 95 L (98-107) mmol/L Carbon Dioxide 21 L (22-30) mmol/L BUN 4 L (9-20) mg/dL Creatinine 0.29 L (0.66-1.25) mg/dL Glucose 292 H (74-99) mg/dL Magnesium 1.4 L (1.6-2.3) mg/dL Microbiology - Last 24 Hours (Table) 03/05/24 08:44 Blood Culture - Preliminary Blood 03/05/24 21:08 Gram Stain - Final Sputum Sputum Culture - Final Assessment and Plan Assessment: Acute delirium tremens requiring intubation mechanical ventilation. Extubated on 03/06/2024, his delirium has resolved. On room air History of alcoholism Chronic thrombocytopenia related to alcoholism Acute transaminitis secondary to alcoholism History of depression History of seizure disorder, maintained on Keppra Benign essential hypertension Intermittent episodes of fever, cultures are nondiagnostic, patient is empirically on Zosyn Plan: The patient was seen and evaluated Labs and medications reviewed Magnesium being replaced Basic metabolic profile pending Remains stable and on room air Patient declines to go back to [place] Case management is following I have personally seen and examined the patient, performed the documentation and the assessment and plan as written. Number of minutes spent on the visit: 10.
[2024-03-09 11:44] LABS: African American GFR (CKD) >90 (>60 ml/min/1.73 sqM); Anion Gap 8 mmol/L; Blood Urea Nitrogen 6 mg/dL (9-20); Calcium 9.3 mg/dL (8.4-10.2); Carbon Dioxide 24 mmol/L (22-30); Chloride 102 mmol/L (98-107); Glucose 86 mg/dL (74-99); Non-African American GFR(CKD) >90 (>60 ml/min/1.73 sqM); Potassium 3.9 mmol/L (3.5-5.1); Sodium 134 mmol/L (137-145)
--- NOTE | 2024-03-09 13:31 | P.PN ---
Subjective Progress Note Date: 03/09/24 patient is 43 years old gentleman past medical history significant for alcohol abuse who was sent into ER from [place] for hallucinations. Patient drinks up to 16 beers per day and has been without alcohol for the last 3 days. Patient was being evaluated at [place] and was receiving Ativan in the ER. Patient has been seen talking to people who were not there. Patient also reported that there was a beer attacking a person. There was no complaint suicidal thoughts. No complaint of nausea, vomiting abdominal pain. Denies any chest pain or shortness of breath. Because of the symptoms, patient was transferred to ER Initial lab work done in the ER showed WBC 3.6, hemoglobin 12.3, platelet count 64, sodium 133, potassium 3.1, chloride 99, carbon is a 27, anion gap 7, creatinine 0.39, glucose 90, magnesium 1 Patient admitted to internal medicine service 03/03. Patient seen and examined. Patient was transferred to ICU yesterday and was later intubated secondary to increased agitation. Patient currently on propofol 03/04. Patient seen and examined.Blood work done this morning showed WBC 3.8, hemoglobin 12, platelet count 70, sodium 131, potassium 3.2, BUN 2, creatinine 0.29. Patient currently Nimbex drip 03/05. Patient seen and examined. Continues to be intubated. Patient had low- grade fevers overnight. Started on IV Zosyn. Patient is off Nimbex now 03/06. Patient seen and examined. Patient opening his eyes. Patient had low- grade fevers overnight again. Patient being given sedation holiday today. 03/07. Patient examined. Patient has been extubated since yesterday, currently on room air. Patient is sitting calmly in the chair, not in acute distress. 02/17 1. Patient seen and examined. Complaining of forgetfulness. Denies any auditory or visual hallucinations 03/09. Patient seen and examined. Complaining of lethargy and weakness. Magnesium level was low, replacement ordered. Antibiotics were discontinued REVIEW OF SYSTEMS: Denies chest pain Denies shortness of breath Denies nausea or vomiting denies any lethargy or weakness PHYSICAL EXAMINATION: GENERAL: The patient is alert and oriented currently x 3 HEENT: Pupils are round and equally reacting to light. EOMI. No scleral icterus. No conjunctival pallor. Normocephalic, atraumatic. No pharyngeal erythema. No thyromegaly. CARDIOVASCULAR: S1 and S2 present. No murmurs, rubs, or gallops. PULMONARY: Chest is clear to auscultation, no wheezing or crackles. ABDOMEN: Soft, nontender, nondistended, normoactive bowel sounds. No palpable organomegaly. MUSCULOSKELETAL: No joint swelling or deformity. EXTREMITIES: No cyanosis, clubbing, or pedal edema. NEUROLOGICAL: Alert, moving all extremities SKIN: No rashes. Assessment and plan Acute hypoxic respiratory failure Alcohol abuse Impending DTs Alcohol detox Hypomagnesemia Hyponatremia Hypokalemia Thrombocytopenia Acute transaminitis Monitor vital signs Monitor CBC Monitor CMP Aggressive bronchopulmonary hygiene Encourage use of I-S Replace magnesium Continue high-dose thiamine and folic acid Continue CIWA protocol ICU following Psychiatry following Labs and medication were reviewed.. Continue same treatment. Continue with symptomatic treatment. Resume home medication. Monitor labs and vitals. DVT and GI prophylaxis. Further recommendations as per clinical course of the patient Dictation was produced using [employer] dictation software. please excuse any grammatical, word or spelling errors. Objective - Vital Signs Vital signs: Vital Signs Temp 98.2 F 03/09/24 08:00 Pulse 67 03/09/24 08:00 Resp 15 03/09/24 08:00 BP 162/89 03/09/24 08:00 Pulse Ox 93 L 03/09/24 08:00 FiO2 30 03/06/24 12:00 Intake & Output 03/08/24 03/09/24 03/09/24 18:59 06:59 18:59 Intake Total 795 Output Total 1395 1575 Balance -600 -1575 Intake: IV 395 Piperacillin-Tazobactam 3 100 .375 gm In Sodium Chloride 0.9% 100 ml @ 25 mls/hr IVPB Q8HR [facility] Rx# :[id number] Sodium Chloride 0.9% 1, 245 000 ml @ 10 mls/hr IV . Q24H [facility] Rx#:[id number] Thiamine 500 mg In Sodium 50 Chloride 0.9% 50 ml @ 100 mls/hr IVPB TID [facility] Rx#:[id number] Intake, IV Titration 200 Amount Magnesium Sulfate-D5w Pmx 100 1 gm In Dextrose/Water 1 100ml.bag @ 100 mls/hr IVPB Q1H [facility] Rx#: [id number] Piperacillin-Tazobactam 3 100 .375 gm In Sodium Chloride 0.9% 100 ml @ 25 mls/hr IVPB Q8HR [facility] Rx# :[id number] Oral 200 Output: Urine 1395 1575 Other: Voiding Method Indwelling Catheter Urinal Urinal ABP, PAP, CO, CI - Last Documented Arterial Blood Pressure 152/72 - Labs CBC & Chem 7: 03/08/24 05:32 03/09/24 06:41 Labs: Abnormal Lab Results - Last 24 Hours (Table) 03/08/24 03/09/24 03/09/24 Range/Units 05:32 06:41 06:41 Lymphocytes # (Manual) 0.86 L (1.0-4.8) k/uL Monocytes # (Manual) 1.89 H (0-1.0) k/uL Metamyelocytes # (Man) 0.05 H (0) k/uL Myelocytes # (Manual) 0.05 H (0) k/uL Sodium 134 L (137-145) mmol/L BUN 6 L (9-20) mg/dL Creatinine 0.40 L (0.66-1.25) mg/dL Magnesium 1.4 L (1.6-2.3) mg/dL Microbiology - Last 24 Hours (Table) 03/05/24 08:44 Blood Culture - Preliminary Blood
[2024-03-10] MEDS ORDERED: Magnesium Replacement Protocol 1 EACH MISC MISCELLANE PRN (09:45)
--- NOTE | 2024-03-10 10:53 | P.PN ---
Subjective Progress Note Date: 03/10/24 This is a 43-year-old male patient got transferred to the intensive care unit because of alcohol withdrawal and active delirium tremens. The patient has history of alcoholism and the patient was sent to our emergency department from [place] for ongoing hallucinations. The patient drinks approximately 16 beers on a daily basis and he has been without alcohol for the past 3 days. The patient was receiving Ativan in the emergency department. The patient was talking to individuals were not present. He was actively hallucinating. At times, he was also being agitated. Initially was admitted to the medical floor. He received more than 10 mg of IV Ativan. Following that, due to aggressive be havior and agitation, he was transferred to the intensive care unit and the patient was started on Precedex. His respiratory status is stable and the patient's pulse ox 99% on room air oxygen. The patient remains somewhat agitated. Sitter is at the bedside. Blood pressure is stable, in fact the patient is slightly hypertensive in the has no signs of any significant respiratory distress. The white cell count is at 3.6 and hemoglobin 4.3 and a platelet count of 64. BUN is at 9 with a creatinine of 0.3 and sodium levels at 130. Potassium level of 3.1. LFTs are abnormal consistent with alcoholic liver disease with an AST of 156 and ALT of 85. Normal bilirubin at 1.3. Albumin is at 4.2. The patient is currently in the intensive care unit on Precedex. He is on IV fluids. He is on thiamine. On today's evaluation of 03/03/2024, the patient is being seen for a follow-up. Events from yesterday night were noted. The patient was started initially on Precedex drip. Subsequently Versed drip was added. Nevertheless, we are unable to control his agitation. He was extremely violent and uncontrollable. He was started on propofol and following that he was intubated placed on mechanical ventilator. This morning, the patient is on propofol which is running at 65 mcg/kg/min and Versed drip at 50 mg an hour. He is on normal saline at rate of 100 cc an hour. He is on assist-control of mode of mechanical ventilation at rate of 18, tidal volume of 450, FiO2 of 55% with a PEEP of 5. Blood gas showed a pH of 7.42 with a pCO2 of 33 and pO2 of 273 post intubation and according to the FiO2 was weaned down. Hemodynamically stable. White cell count of 4.3 with a hemoglobin 12.2, platelet count of 69, the electrolytes are stable with a potassium level of 3.3, bicarb is at 19, BUN is at 7 with a creatinine of 0.37., Comfortable on mechanical ventilator. Afebrile. Reevaluated on 03/04/2024, patient remains in the ICU, intubated and mechanically ventilated. His vent settings are 18/450/35%/5 he is on assist-control mode of mechanical ventilation ABG showed a pO2 of 134 pCO2 32 pH of 7.40 patient is maintained on Nimbex he is also on Versed at 15 mg/h propofol at 65 mcg/kg/min IV fluid 0.9 normal saline at 100 cc/h. Patient is calm, completely sedated and paralyzed. However I plan to discontinue his Nimbex today, and hopefully maintain him calm on Versed and propofol based on the blood gas, I change his FiO2 to 30% instead of 35% chest x-ray showed no acute pulmonary process. WBC count is 3.8 hemoglobin is 12 electrolytes are normal except for low potassium of 3.2, renal profile is normal. Patient remains on the alcohol withdrawal protocol, remains on Keppra, plan to start enteral feeding/nutritional support today Patient was seen today on 03/05/2024, remains in the ICU, intubated and mechanically ventilated. Patient is on assist-control rate of 18 tidal volume 450 FiO2 30% PEEP of 5 ABG showed a pO2 of 98 pCO2 31 pH of 7.45. Remains on Versed at 13 mg/h propofol at 65 mcg/kg/min IV fluid 0.9 normal saline at 100 cc/h. Patient is calm, sedated, he was taken off Nimbex yesterday, and remains off Nimbex. My plan today is to consider tapering down his sedation and hopefully in the next 24 hours to start addressing weaning parameters and possibly weaning trials. At this point we will work on tapering down the sedation and see how he does over the next 24 hours. In the meantime we will empirically start the patient on antibiotics as the patient is spiking temps as high as 101 last night. Cultures were ordered including sputum cultures blood cultures and urine cultures. Chest x-ray showed no evidence of infiltrate. WBC count remains 5.5 hemoglobin 12.6 basic metabolic profile is normal, renal profile is normal Patient was made today on 03/06/2024, remains in the ICU intubated and mechanically ventilated. Patient is on assist-control rate of 18 tidal volume 450 FiO2 30% PEEP of 5 ABG showed a pO2 of 120 pCO2 27 pH of 7.46. No changes were made in vent settings. Patient remains on propofol at 45 mcg/kg/min he is also on Versed at 5 mg/h receiving vital HP at 42 cc/h. Which is the goal. Magnesium is low today at 1.1, that is being corrected as per protocol. Patient is calm, fully sedated, instructed nursing staff to cut down on his sedation, hopefully discontinue Versed, and hopefully assess mental status on a lower dose of sedation, and even consider weaning parameters. Chest x-ray showed no evidence of active disease. CBC is relatively normal. Electrolytes showed low potassium of 3.2 and low magnesium being addressed accordingly. Patient was seen today on 03/07/2024, patient is doing well, he was extubated yesterday, relatively asymptomatic. Hardly any pulmonary symptoms. His labs are unremarkable including a normal CBC and normal basic metabolic profile chest x-ray today showed slightly elevated right hemidiaphragm, minimal atelectasis, no evidence of active infiltrates Patient was evaluated today on 03/08/2024, remains in the ICU, doing great, relatively asymptomatic. Patient is only complaining that he did not get much sleep last night, denies any cough wheezing shortness of breath or chest pain. Magnesium remains low at 1.5, patient still having intermittent PVCs. But no symptoms The patient is seen today March 09, 2024 in follow-up on the regular medical floor. He is currently awake and alert in no acute distress. He is oriented x 3. He is maintaining good O2 saturations in the 90s on room air. States he slept well last night. Magnesium remains low at 1.4. Being replaced. He is continue on Lovenox for DVT prophylaxis. Remains on the CIWA protocol. NicoDerm patch in place. Continued on antibiotics in the form of Zosyn. The patient is seen today March 10, 2024 in follow-up on the regular medical floor. He is awake and alert in no acute distress. He has been calm and cooperative. No issues overnight. He is maintaining good O2 saturations in the 90s on room air. He has been afebrile. Hemodynamically stable. Blood cultures revealed no growth. Sputum culture revealed no growth. He is continued on the CIWA protocol. NicoDerm patch in place. Lovenox for DVT prophylaxis. Completed antibiotics. Objective - Vital Signs Vital signs: Vital Signs Temp 98.6 F 03/10/24 07:44 Pulse 64 03/10/24 07:44 Resp 16 03/10/24 07:44 BP 151/90 03/10/24 07:44 Pulse Ox 94 L 03/10/24 07:44 FiO2 30 03/06/24 12:00 Intake & Output 03/09/24 03/10/24 03/10/24 18:59 06:59 18:59 Intake Total 118 Output Total 825 Balance 118 -825 Intake: Oral 118 Output: Urine 825 Other: Voiding Method Urinal Urinal # Voids 3 ABP, PAP, CO, CI - Last Documented Arterial Blood Pressure 152/72 - Exam GENERAL EXAM: Alert, calm, cooperative 43-year-old male, in no apparent distress. HEAD: Normocephalic. EYES: Normal reaction of pupils, equal size. NOSE: Clear with pink turbinates. THROAT: No erythema or exudates. NECK: No masses, no JVD. CHEST: No chest wall deformity. LUNGS: Equal air entry with no crackles, wheeze, rhonchi or dullness. CVS: S1 and S2 normal with no audible murmur, regular rhythm. ABDOMEN: No hepatosplenomegaly, normal bowel sounds, no guarding or rigidity. SPINE: No scoliosis or deformity SKIN: No rashes CENTRAL NERVOUS SYSTEM: No focal deficits, tone is normal in all 4 extremities. EXTREMITIES: There is no peripheral edema. No clubbing, no cyanosis. Peripheral pulses are intact. - Labs CBC & Chem 7: 03/08/24 05:32 03/09/24 06:41 Labs: Abnormal Lab Results - Last 24 Hours (Table) 03/09/24 Range/Units 06:41 Sodium 134 L (137-145) mmol/L BUN 6 L (9-20) mg/dL Creatinine 0.40 L (0.66-1.25) mg/dL Assessment and Plan Assessment: Acute delirium tremens requiring intubation mechanical ventilation. Extubated on 03/06/2024, his delirium has resolved. On room air History of alcoholism Chronic thrombocytopenia related to alcoholism Acute transaminitis secondary to alcoholism History of depression History of seizure disorder, maintained on Keppra Benign essential hypertension Intermittent episodes of fever, cultures are nondiagnostic, patient is empirically on Zosyn Plan: The patient was seen and evaluated Medications reviewed Remains stable and on room air Cleared for discharge from the pulmonary standpoint I have personally seen and examined the patient, performed the documentation and the assessment and plan as written. Number of minutes spent on the visit: 10.
[2024-03-10 11:03] LABS: ALT 156 U/L (4-49); AST 226 U/L (17-59); African American GFR (CKD) >90 (>60 ml/min/1.73 sqM); Albumin 3.6 g/dL (3.5-5.0); Albumin/Globulin Ratio 1.3; Alkaline Phosphatase 70 U/L (38-126); Anion Gap 8 mmol/L; Blood Urea Nitrogen 9 mg/dL (9-20); Carbon Dioxide 23 mmol/L (22-30); Chloride 104 mmol/L (98-107); Globulin 2.7 g/dL; Glucose 86 mg/dL (74-99); Magnesium 1.4 mg/dL (1.6-2.3); Non-African American GFR(CKD) >90 (>60 ml/min/1.73 sqM); Potassium 3.5 mmol/L (3.5-5.1); Sodium 135 mmol/L (137-145); Total Bilirubin 1.1 mg/dL (0.2-1.3); Total Protein 6.3 g/dL (6.3-8.2)
[2024-03-10] MEDS: MAGNESIUM SULFATE-D5W PMX 1 GM in DEXTROSE/WATER 1 100ML.BAG IVPB SCH ×2 (11:15→13:46)
--- NOTE | 2024-03-10 13:40 | P.PN ---
Subjective Progress Note Date: 03/10/24 patient is 43 years old gentleman past medical history significant for alcohol abuse who was sent into ER from [place] for hallucinations. Patient drinks up to 16 beers per day and has been without alcohol for the last 3 days. Patient was being evaluated at [place] and was receiving Ativan in the ER. Patient has been seen talking to people who were not there. Patient also reported that there was a beer attacking a person. There was no complaint suicidal thoughts. No complaint of nausea, vomiting abdominal pain. Denies any chest pain or shortness of breath. Because of the symptoms, patient was transferred to ER Initial lab work done in the ER showed WBC 3.6, hemoglobin 12.3, platelet count 64, sodium 133, potassium 3.1, chloride 99, carbon is a 27, anion gap 7, creatinine 0.39, glucose 90, magnesium 1 Patient admitted to internal medicine service 03/03. Patient seen and examined. Patient was transferred to ICU yesterday and was later intubated secondary to increased agitation. Patient currently on propofol 03/04. Patient seen and examined.Blood work done this morning showed WBC 3.8, hemoglobin 12, platelet count 70, sodium 131, potassium 3.2, BUN 2, creatinine 0.29. Patient currently Nimbex drip 03/05. Patient seen and examined. Continues to be intubated. Patient had low- grade fevers overnight. Started on IV Zosyn. Patient is off Nimbex now 03/06. Patient seen and examined. Patient opening his eyes. Patient had low- grade fevers overnight again. Patient being given sedation holiday today. 03/07. Patient examined. Patient has been extubated since yesterday, currently on room air. Patient is sitting calmly in the chair, not in acute distress. 02/17 1. Patient seen and examined. Complaining of forgetfulness. Denies any auditory or visual hallucinations 03/09. Patient seen and examined. Complaining of lethargy and weakness. Magnesium level was low, replacement ordered. Antibiotics were discontinued 03/10. Patient seen and examined. Discussed with patient patient back in detail, patient wants patient to be discharged to inpatient alcoholrehab, patient is still thinking. REVIEW OF SYSTEMS: Denies chest pain Denies shortness of breath Denies nausea or vomiting denies any lethargy or weakness PHYSICAL EXAMINATION: GENERAL: The patient is alert and oriented currently x 3 HEENT: Pupils are round and equally reacting to light. EOMI. No scleral icterus. No conjunctival pallor. Normocephalic, atraumatic. No pharyngeal erythema. No thyromegaly. CARDIOVASCULAR: S1 and S2 present. No murmurs, rubs, or gallops. PULMONARY: Chest is clear to auscultation, no wheezing or crackles. ABDOMEN: Soft, nontender, nondistended, normoactive bowel sounds. No palpable organomegaly. MUSCULOSKELETAL: No joint swelling or deformity. EXTREMITIES: No cyanosis, clubbing, or pedal edema. NEUROLOGICAL: Alert, moving all extremities SKIN: No rashes. Assessment and plan Acute hypoxic respiratory failure Alcohol abuse Impending DTs Alcohol detox Hypomagnesemia Hyponatremia Hypokalemia Thrombocytopenia Acute transaminitis Monitor vital signs Monitor CBC Monitor CMP Aggressive bronchopulmonary hygiene Encourage use of I-S Replace magnesium Continue high-dose thiamine and folic acid Continue CIWA protocol ICU following Psychiatry following Labs and medication were reviewed.. Continue same treatment. Continue with symptomatic treatment. Resume home medication. Monitor labs and vitals. DVT and GI prophylaxis. Further recommendations as per clinical course of the patient Dictation was produced using [employer] dictation software. please excuse any grammatical, word or spelling errors. Objective - Vital Signs Vital signs: Vital Signs Temp 98.6 F 03/10/24 07:44 Pulse 64 03/10/24 07:44 Resp 16 03/10/24 07:44 BP 151/90 03/10/24 07:44 Pulse Ox 94 L 03/10/24 07:44 FiO2 30 03/06/24 12:00 Intake & Output 03/09/24 03/10/24 03/10/24 18:59 06:59 18:59 Intake Total 118 Output Total 825 Balance 118 -825 Intake: Oral 118 Output: Urine 825 Other: Voiding Method Urinal Urinal # Voids 3 ABP, PAP, CO, CI - Last Documented Arterial Blood Pressure 152/72 - Labs CBC & Chem 7: 03/08/24 05:32 03/10/24 10:14 Labs: Abnormal Lab Results - Last 24 Hours (Table) 03/09/24 Range/Units 06:41 Sodium 134 L (137-145) mmol/L BUN 6 L (9-20) mg/dL Creatinine 0.40 L (0.66-1.25) mg/dL
[2024-03-11 13:56] VITALS: BMI 21.1
--- NOTE | 2024-03-11 14:09 | P.PN ---
Subjective Progress Note Date: 03/11/24 This is a 43-year-old male patient got transferred to the intensive care unit because of alcohol withdrawal and active delirium tremens. The patient has history of alcoholism and the patient was sent to our emergency department from [place] for ongoing hallucinations. The patient drinks approximately 16 beers on a daily basis and he has been without alcohol for the past 3 days. The patient was receiving Ativan in the emergency department. The patient was talking to individuals were not present. He was actively hallucinating. At times, he was also being agitated. Initially was admitted to the medical floor. He received more than 10 mg of IV Ativan. Following that, due to aggressive be havior and agitation, he was transferred to the intensive care unit and the patient was started on Precedex. His respiratory status is stable and the patient's pulse ox 99% on room air oxygen. The patient remains somewhat agitated. Sitter is at the bedside. Blood pressure is stable, in fact the patient is slightly hypertensive in the has no signs of any significant respiratory distress. The white cell count is at 3.6 and hemoglobin 4.3 and a platelet count of 64. BUN is at 9 with a creatinine of 0.3 and sodium levels at 130. Potassium level of 3.1. LFTs are abnormal consistent with alcoholic liver disease with an AST of 156 and ALT of 85. Normal bilirubin at 1.3. Albumin is at 4.2. The patient is currently in the intensive care unit on Precedex. He is on IV fluids. He is on thiamine. On today's evaluation of 03/03/2024, the patient is being seen for a follow-up. Events from yesterday night were noted. The patient was started initially on Precedex drip. Subsequently Versed drip was added. Nevertheless, we are unable to control his agitation. He was extremely violent and uncontrollable. He was started on propofol and following that he was intubated placed on mechanical ventilator. This morning, the patient is on propofol which is running at 65 mcg/kg/min and Versed drip at 50 mg an hour. He is on normal saline at rate of 100 cc an hour. He is on assist-control of mode of mechanical ventilation at rate of 18, tidal volume of 450, FiO2 of 55% with a PEEP of 5. Blood gas showed a pH of 7.42 with a pCO2 of 33 and pO2 of 273 post intubation and according to the FiO2 was weaned down. Hemodynamically stable. White cell count of 4.3 with a hemoglobin 12.2, platelet count of 69, the electrolytes are stable with a potassium level of 3.3, bicarb is at 19, BUN is at 7 with a creatinine of 0.37., Comfortable on mechanical ventilator. Afebrile. Reevaluated on 03/04/2024, patient remains in the ICU, intubated and mechanically ventilated. His vent settings are 18/450/35%/5 he is on assist-control mode of mechanical ventilation ABG showed a pO2 of 134 pCO2 32 pH of 7.40 patient is maintained on Nimbex he is also on Versed at 15 mg/h propofol at 65 mcg/kg/min IV fluid 0.9 normal saline at 100 cc/h. Patient is calm, completely sedated and paralyzed. However I plan to discontinue his Nimbex today, and hopefully maintain him calm on Versed and propofol based on the blood gas, I change his FiO2 to 30% instead of 35% chest x-ray showed no acute pulmonary process. WBC count is 3.8 hemoglobin is 12 electrolytes are normal except for low potassium of 3.2, renal profile is normal. Patient remains on the alcohol withdrawal protocol, remains on Keppra, plan to start enteral feeding/nutritional support today Patient was seen today on 03/05/2024, remains in the ICU, intubated and mechanically ventilated. Patient is on assist-control rate of 18 tidal volume 450 FiO2 30% PEEP of 5 ABG showed a pO2 of 98 pCO2 31 pH of 7.45. Remains on Versed at 13 mg/h propofol at 65 mcg/kg/min IV fluid 0.9 normal saline at 100 cc/h. Patient is calm, sedated, he was taken off Nimbex yesterday, and remains off Nimbex. My plan today is to consider tapering down his sedation and hopefully in the next 24 hours to start addressing weaning parameters and possibly weaning trials. At this point we will work on tapering down the sedation and see how he does over the next 24 hours. In the meantime we will empirically start the patient on antibiotics as the patient is spiking temps as high as 101 last night. Cultures were ordered including sputum cultures blood cultures and urine cultures. Chest x-ray showed no evidence of infiltrate. WBC count remains 5.5 hemoglobin 12.6 basic metabolic profile is normal, renal profile is normal Patient was made today on 03/06/2024, remains in the ICU intubated and mechanically ventilated. Patient is on assist-control rate of 18 tidal volume 450 FiO2 30% PEEP of 5 ABG showed a pO2 of 120 pCO2 27 pH of 7.46. No changes were made in vent settings. Patient remains on propofol at 45 mcg/kg/min he is also on Versed at 5 mg/h receiving vital HP at 42 cc/h. Which is the goal. Magnesium is low today at 1.1, that is being corrected as per protocol. Patient is calm, fully sedated, instructed nursing staff to cut down on his sedation, hopefully discontinue Versed, and hopefully assess mental status on a lower dose of sedation, and even consider weaning parameters. Chest x-ray showed no evidence of active disease. CBC is relatively normal. Electrolytes showed low potassium of 3.2 and low magnesium being addressed accordingly. Patient was seen today on 03/07/2024, patient is doing well, he was extubated yesterday, relatively asymptomatic. Hardly any pulmonary symptoms. His labs are unremarkable including a normal CBC and normal basic metabolic profile chest x-ray today showed slightly elevated right hemidiaphragm, minimal atelectasis, no evidence of active infiltrates Patient was evaluated today on 03/08/2024, remains in the ICU, doing great, relatively asymptomatic. Patient is only complaining that he did not get much sleep last night, denies any cough wheezing shortness of breath or chest pain. Magnesium remains low at 1.5, patient still having intermittent PVCs. But no symptoms The patient is seen today March 09, 2024 in follow-up on the regular medical floor. He is currently awake and alert in no acute distress. He is oriented x 3. He is maintaining good O2 saturations in the 90s on room air. States he slept well last night. Magnesium remains low at 1.4. Being replaced. He is continue on Lovenox for DVT prophylaxis. Remains on the CIWA protocol. NicoDerm patch in place. Continued on antibiotics in the form of Zosyn. The patient is seen today March 10, 2024 in follow-up on the regular medical floor. He is awake and alert in no acute distress. He has been calm and cooperative. No issues overnight. He is maintaining good O2 saturations in the 90s on room air. He has been afebrile. Hemodynamically stable. Blood cultures revealed no growth. Sputum culture revealed no growth. He is continued on the CIWA protocol. NicoDerm patch in place. Lovenox for DVT prophylaxis. Completed antibiotics. The patient is seen today March 11, 2024 in follow-up on the regular medical floor. He is resting comfortably in bed. Calm and cooperative. Awake, alert and oriented x 3. Maintaining good O2 saturations in the 90s on room air. He has normal saline at KVO. He remains in the CIWA protocol. NicoDerm patch in place. Receiving thiamine. Blood and sputum cultures revealed no growth. Magnesium 1.8. Lovenox for DVT prophylaxis. Objective - Vital Signs Vital signs: Vital Signs Temp 98.7 F 03/11/24 08:00 Pulse 68 03/11/24 08:00 Resp 14 03/11/24 08:00 BP 150/93 03/11/24 08:00 Pulse Ox 94 L 03/11/24 08:00 FiO2 30 03/06/24 12:00 Intake & Output 03/10/24 03/11/24 03/11/24 18:59 06:59 18:59 Weight 70.7 kg 70.7 kg Other: Voiding Method Urinal Urinal # Voids 4 2 ABP, PAP, CO, CI - Last Documented Arterial Blood Pressure 152/72 - Exam GENERAL EXAM: Alert, cooperative 43-year-old male, sitting in bed, on room air, in no apparent distress. HEAD: Normocephalic. EYES: Normal reaction of pupils, equal size. NOSE: Clear with pink turbinates. THROAT: No erythema or exudates. NECK: No masses, no JVD. CHEST: No chest wall deformity. LUNGS: Equal air entry with no crackles, wheeze, rhonchi or dullness. CVS: S1 and S2 normal with no audible murmur, regular rhythm. ABDOMEN: No hepatosplenomegaly, normal bowel sounds, no guarding or rigidity. SPINE: No scoliosis or deformity SKIN: No rashes CENTRAL NERVOUS SYSTEM: No focal deficits, tone is normal in all 4 extremities. EXTREMITIES: There is no peripheral edema. No clubbing, no cyanosis. Peripheral pulses are intact. - Labs CBC & Chem 7: 03/08/24 05:32 03/10/24 10:14 Labs: Microbiology - Last 24 Hours (Table) 03/05/24 08:44 Blood Culture - Final Blood Assessment and Plan Assessment: Acute delirium tremens requiring intubation mechanical ventilation. Extubated on 03/06/2024, his delirium has resolved. On room air History of alcoholism Chronic thrombocytopenia related to alcoholism Acute transaminitis secondary to alcoholism History of depression History of seizure disorder, maintained on Keppra Benign essential hypertension Intermittent episodes of fever, cultures are nondiagnostic, completed Zosyn Chronic and ongoing tobacco dependence Plan: The patient was seen and evaluated Medications and labs reviewed Remains stable and on room air Remains calm and cooperative Educated regarding alcohol cessation Educated regarding smoking cessation NicoDerm patch remains in place Discharge planning in place, home with home care versus subacute rehab This patient was seen independently by the pulmonary nurse practitioner a ddressing pulmonary issues I have personally seen and examined the patient, performed the documentation and the assessment and plan as written. Number of minutes spent on the visit: 24.
[2024-03-11] MEDS ORDERED: SUMAtriptan succinate 50 MG TAB PO PRN (14:33)
[2024-03-11] MEDS ORDERED: PANTOPRAZOLE 40 MG TABLET PO PRN (14:33)
--- NOTE | 2024-03-11 19:34 | PN ---
PROGRESS NOTE DATE OF SERVICE: 03/11/2024 SUBJECTIVE: This 43-year-old gentleman who was admitted with acute hypoxic respiratory failure, alcohol abuse, is closely monitored. The patient is extremely weak. ECF rehab is being considered. Chest x-ray was reviewed. PHYSICAL EXAMINATION: VITAL SIGNS: Pulse 68, blood pressure 115/93, respirations 14. CHEST: A few scattered rhonchi and crackles. ABDOMEN: Soft. NERVOUS SYSTEM: Diffusely weak. LABORATORY DATA: Reviewed. ASSESSMENT: 1. Acute hypoxic respiratory failure. 2. Alcohol abuse. 3. Impending delirium tremens. 4. Alcohol detox. 5. Electrolyte abnormalities. 6. Transurethral resection of the prostate. 7. Gait dysfunction. RECOMMENDATIONS: Recommend to continue current management and continue symptomatic treatment, otherwise repeat labs, possible ECF rehab and alcohol rehab as an outpatient. Prognosis is guarded because of the multiple complex medical issues and further recommendations to follow. See orders for details. MMODL / IJN: [id number] /
[2024-03-12 08:18] VITALS: BP 162/90; PULSE 63; RESP 18; TEMP 97.8
[2024-03-12] MEDS: PRIMIDONE 50 MG TAB PO SCH (09:51)
[2024-03-12] MEDS: THIAMINE 100 MG TAB PO SCH (09:51)
[2024-03-12 10:31] LABS: HCT 36.2 % (39.6-50.0); HGB 11.9 g/dL (13.0-17.0); MCH 29.5 pg (27.0-32.0); MCHC 32.9 g/dL (32.0-37.0); MCV 89.8 FL (80.0-97.0); Mean Platelet Volume 11.5 FL (9.5-12.2); NRBC Per 100 WBC 0 X 10*3/uL (0.00-0.01); Platelet Count 313 X 10*3/uL (140-440); RBC 4.03 X 10*6/uL (4.40-5.60); RDW 16.5 % (11.5-14.5); WBC 9.22 X 10*3/uL (4.50-10.00)
[2024-03-12 10:45] LABS: ALT 170 U/L (10-49); AST 200 U/L (14-35); Albumin 3.9 g/dL (3.8-4.9); Albumin/Globulin Ratio 1.44 Ratio (1.60-3.17); Alkaline Phosphatase 79 U/L (41-126); BUN/Creat Ratio 20.25 Ratio (12.00-20.00); Blood Urea Nitrogen 8.1 mg/dL (9.0-27.0); Calcium 9.1 mg/dL (8.7-10.3); Carbon Dioxide 22.7 mmol/L (21.6-31.8); Chloride 102 mmol/L (96-109); Globulin 2.7 g/dL (1.6-3.3); Glucose 89 mg/dL (70-110); Potassium 3.7 mmol/L (3.5-5.5); Sodium 138 mmol/L (135-145); Total Bilirubin 0.7 mg/dL (0.3-1.2); Total Protein 6.6 g/dL (6.2-8.2)
[2024-03-12] MEDS: METOPROLOL TARTRATE 25 MG TAB PO SCH (11:14)
--- NOTE | 2024-03-12 11:25 | P.PN ---
Subjective Progress Note Date: 03/12/24 This is a 43-year-old male patient got transferred to the intensive care unit because of alcohol withdrawal and active delirium tremens. The patient has history of alcoholism and the patient was sent to our emergency department from [place] for ongoing hallucinations. The patient drinks approximately 16 beers on a daily basis and he has been without alcohol for the past 3 days. The patient was receiving Ativan in the emergency department. The patient was talking to individuals were not present. He was actively hallucinating. At times, he was also being agitated. Initially was admitted to the medical floor. He received more than 10 mg of IV Ativan. Following that, due to aggressive be havior and agitation, he was transferred to the intensive care unit and the patient was started on Precedex. His respiratory status is stable and the patient's pulse ox 99% on room air oxygen. The patient remains somewhat agitated. Sitter is at the bedside. Blood pressure is stable, in fact the patient is slightly hypertensive in the has no signs of any significant respiratory distress. The white cell count is at 3.6 and hemoglobin 4.3 and a platelet count of 64. BUN is at 9 with a creatinine of 0.3 and sodium levels at 130. Potassium level of 3.1. LFTs are abnormal consistent with alcoholic liver disease with an AST of 156 and ALT of 85. Normal bilirubin at 1.3. Albumin is at 4.2. The patient is currently in the intensive care unit on Precedex. He is on IV fluids. He is on thiamine. On today's evaluation of 03/03/2024, the patient is being seen for a follow-up. Events from yesterday night were noted. The patient was started initially on Precedex drip. Subsequently Versed drip was added. Nevertheless, we are unable to control his agitation. He was extremely violent and uncontrollable. He was started on propofol and following that he was intubated placed on mechanical ventilator. This morning, the patient is on propofol which is running at 65 mcg/kg/min and Versed drip at 50 mg an hour. He is on normal saline at rate of 100 cc an hour. He is on assist-control of mode of mechanical ventilation at rate of 18, tidal volume of 450, FiO2 of 55% with a PEEP of 5. Blood gas showed a pH of 7.42 with a pCO2 of 33 and pO2 of 273 post intubation and according to the FiO2 was weaned down. Hemodynamically stable. White cell count of 4.3 with a hemoglobin 12.2, platelet count of 69, the electrolytes are stable with a potassium level of 3.3, bicarb is at 19, BUN is at 7 with a creatinine of 0.37., Comfortable on mechanical ventilator. Afebrile. Reevaluated on 03/04/2024, patient remains in the ICU, intubated and mechanically ventilated. His vent settings are 18/450/35%/5 he is on assist-control mode of mechanical ventilation ABG showed a pO2 of 134 pCO2 32 pH of 7.40 patient is maintained on Nimbex he is also on Versed at 15 mg/h propofol at 65 mcg/kg/min IV fluid 0.9 normal saline at 100 cc/h. Patient is calm, completely sedated and paralyzed. However I plan to discontinue his Nimbex today, and hopefully maintain him calm on Versed and propofol based on the blood gas, I change his FiO2 to 30% instead of 35% chest x-ray showed no acute pulmonary process. WBC count is 3.8 hemoglobin is 12 electrolytes are normal except for low potassium of 3.2, renal profile is normal. Patient remains on the alcohol withdrawal protocol, remains on Keppra, plan to start enteral feeding/nutritional support today Patient was seen today on 03/05/2024, remains in the ICU, intubated and mechanically ventilated. Patient is on assist-control rate of 18 tidal volume 450 FiO2 30% PEEP of 5 ABG showed a pO2 of 98 pCO2 31 pH of 7.45. Remains on Versed at 13 mg/h propofol at 65 mcg/kg/min IV fluid 0.9 normal saline at 100 cc/h. Patient is calm, sedated, he was taken off Nimbex yesterday, and remains off Nimbex. My plan today is to consider tapering down his sedation and hopefully in the next 24 hours to start addressing weaning parameters and possibly weaning trials. At this point we will work on tapering down the sedation and see how he does over the next 24 hours. In the meantime we will empirically start the patient on antibiotics as the patient is spiking temps as high as 101 last night. Cultures were ordered including sputum cultures blood cultures and urine cultures. Chest x-ray showed no evidence of infiltrate. WBC count remains 5.5 hemoglobin 12.6 basic metabolic profile is normal, renal profile is normal Patient was made today on 03/06/2024, remains in the ICU intubated and mechanically ventilated. Patient is on assist-control rate of 18 tidal volume 450 FiO2 30% PEEP of 5 ABG showed a pO2 of 120 pCO2 27 pH of 7.46. No changes were made in vent settings. Patient remains on propofol at 45 mcg/kg/min he is also on Versed at 5 mg/h receiving vital HP at 42 cc/h. Which is the goal. Magnesium is low today at 1.1, that is being corrected as per protocol. Patient is calm, fully sedated, instructed nursing staff to cut down on his sedation, hopefully discontinue Versed, and hopefully assess mental status on a lower dose of sedation, and even consider weaning parameters. Chest x-ray showed no evidence of active disease. CBC is relatively normal. Electrolytes showed low potassium of 3.2 and low magnesium being addressed accordingly. Patient was seen today on 03/07/2024, patient is doing well, he was extubated yesterday, relatively asymptomatic. Hardly any pulmonary symptoms. His labs are unremarkable including a normal CBC and normal basic metabolic profile chest x-ray today showed slightly elevated right hemidiaphragm, minimal atelectasis, no evidence of active infiltrates Patient was evaluated today on 03/08/2024, remains in the ICU, doing great, relatively asymptomatic. Patient is only complaining that he did not get much sleep last night, denies any cough wheezing shortness of breath or chest pain. Magnesium remains low at 1.5, patient still having intermittent PVCs. But no symptoms The patient is seen today March 09, 2024 in follow-up on the regular medical floor. He is currently awake and alert in no acute distress. He is oriented x 3. He is maintaining good O2 saturations in the 90s on room air. States he slept well last night. Magnesium remains low at 1.4. Being replaced. He is continue on Lovenox for DVT prophylaxis. Remains on the CIWA protocol. NicoDerm patch in place. Continued on antibiotics in the form of Zosyn. The patient is seen today March 10, 2024 in follow-up on the regular medical floor. He is awake and alert in no acute distress. He has been calm and cooperative. No issues overnight. He is maintaining good O2 saturations in the 90s on room air. He has been afebrile. Hemodynamically stable. Blood cultures revealed no growth. Sputum culture revealed no growth. He is continued on the [facility] protocol. NicoDerm patch in place. Lovenox for DVT prophylaxis. Completed antibiotics. The patient is seen today March 11, 2024 in follow-up on the regular medical floor. He is resting comfortably in bed. Calm and cooperative. Awake, alert and oriented x 3. Maintaining good O2 saturations in the 90s on room air. He has normal saline at KVO. He remains in the [facility] protocol. NicoDerm patch in place. Receiving thiamine. Blood and sputum cultures revealed no growth. Magnesium 1.8. Lovenox for DVT prophylaxis. The patient is seen today March 12, 2024 in follow-up on the regular medical floor. He is awake and alert in no acute distress. Resting comfortably in bed. Denies any shortness of breath, cough or congestion. Denies any anxiety or restlessness. NicoDerm patch in place. He remains on the [facility] protocol. Lovenox for DVT prophylaxis. White count 9.2. Hemoglobin 9.9. Platelets 313. Sodium 138. Potassium 3.7. Bicarb 23. BUN 8. Creatinine 0.4. Glucose 89. AST 200. ALT 170. Blood and sputum cultures revealed no growth. Objective - Vital Signs Vital signs: Vital Signs Temp 97.8 F 03/12/24 08:00 Pulse 63 03/12/24 08:00 Resp 18 03/12/24 08:00 BP 162/90 03/12/24 08:00 Pulse Ox 98 03/12/24 08:00 FiO2 30 03/06/24 12:00 Intake & Output 03/11/24 03/12/24 03/12/24 18:59 06:59 18:59 Intake Total 0 Output Total 400 Balance -400 Weight 70.7 kg Intake: Oral 0 Output: Urine 400 Other: Voiding Method Urinal # Voids 2 1 ABP, PAP, CO, CI - Last Documented Arterial Blood Pressure 152/72 - Exam GENERAL EXAM: Alert, pleasant 43-year-old male, on room air, in no apparent distress. HEAD: Normocephalic. EYES: Normal reaction of pupils, equal size. NOSE: Clear with pink turbinates. THROAT: No erythema or exudates. NECK: No masses, no JVD. CHEST: No chest wall deformity. LUNGS: Equal air entry with no crackles, wheeze, rhonchi or dullness. CVS: S1 and S2 normal with no audible murmur, regular rhythm. ABDOMEN: No hepatosplenomegaly, normal bowel sounds, no guarding or rigidity. SPINE: No scoliosis or deformity SKIN: No rashes CENTRAL NERVOUS SYSTEM: No focal deficits, tone is normal in all 4 extremities. EXTREMITIES: There is no peripheral edema. No clubbing, no cyanosis. Peripheral pulses are intact. - Labs CBC & Chem 7: 03/12/24 07:10 03/12/24 07:10 Labs: Abnormal Lab Results - Last 24 Hours (Table) 03/12/24 03/12/24 Range/Units 07:10 07:10 RBC 4.03 L (4.40-5.60) X 10*6/uL Hgb 11.9 L (13.0-17.0) g/dL Hct 36.2 L (39.6-50.0) % RDW 16.5 H (11.5-14.5) % Anion Gap 13.30 H (4.00-12.00) mmol/L BUN 8.1 L (9.0-27.0) mg/dL Creatinine 0.4 L (0.6-1.5) mg/dL BUN/Creatinine Ratio 20.25 H (12.00-20.00) Ratio AST 200 H (14-35) U/L ALT 170 H (10-49) U/L Albumin/Globulin Ratio 1.44 L (1.60-3.17) Ratio Assessment and Plan Assessment: Acute delirium tremens requiring intubation mechanical ventilation. Extubated on 03/06/2024, his delirium has resolved. On room air History of alcoholism Chronic thrombocytopenia related to alcoholism Acute transaminitis secondary to alcoholism History of depression History of seizure disorder, maintained on Keppra Benign essential hypertension Intermittent episodes of fever, cultures are nondiagnostic, completed Zosyn Chronic and ongoing tobacco dependence Plan: The patient was seen and evaluated Medications and labs reviewed Remains stable and on room air Plan is for home with home care This patient was seen independently by the pulmonary nurse practitioner addressing pulmonary issues I have personally seen and examined the patient, performed the documentation and the assessment and plan as written. Number of minutes spent on the visit: 22.
[2024-03-12 11:31] LABS: Basophils # (A) 0.14 X 10*3/uL (0.00-0.10); Basophils % (A) 1.5 %; Eosinophils # (A) 0.13 X 10*3/uL (0.04-0.35); Eosinophils % (A) 1.4 %; Lymphocytes # (A) 1.74 X 10*3/uL (0.90-5.00); Lymphocytes % (A) 18.9 %; Monocytes # (A) 1.76 X 10*3/uL (0.20-1.00); Monocytes % (A) 19.1 %; Neutrophils # (A) 5.36 X 10*3/uL (1.80-7.70); Neutrophils % (A) 58.1 %; RBC Morphology Normal (Normal)
--- NOTE | 2024-03-12 13:23 | P.CRDCN ---
History of Present Illness Consult date: 03/12/24 Reason for Consult (text): Bigeminy History of present illness: This is a 43-year-old male with no previous cardiac history. He has a past [facility] history of alcohol abuse consuming 16 beers a day. He went to [place] and was without alcohol for about 3 days and then presented to the emergency center with hallucinations and agitation and eventually was transferred to the intensive care unit started on Precedex, intubated and maintained on mechanical ventilation. He has subsequently been extubated transferred to the [facility] floor and is being prepared for discharge home today. Apparently it was noted the patient was having bigeminy and a consult was generated for cardiology to evaluate prior to his discharge. Patient was started on metoprolol 25 mg twice daily and this seems to have resolved the PVCs. An EKG was requested which was a sinus rhythm. Patient denies having any chest pain or shortness of breath. He states he has had sensation of palpitations in the past but none now. He denies shortness of breath. His plan is to not return to [place] but may attend a different rehab facility. He is willing to follow-up in the office with Dr. Hudson for echocardiogram and possible stress testing. Review Of Systems: At the time of my exam: CONSTITUTIONAL: Denies fever or chills. HEENT: Denies blurred vision, vision changes, or eye pain. Denies hemoptysis CARDIOVASCULAR: Denies chest pain. Denies orthopnea. Denies PND. Denies palpitations RESPIRATORY: Denies shortness of breath. GASTROINTESTINAL: Denies abdominal pain. Denies nausea or vomiting. HEMATOLOGIC: Denies bleeding disorders. GENITOURINARY: Denies any blood in urine. SKIN: Denies puritis. Denies rash. Physical examination: Gen: This is a thin 43-year-old male in no acute distress VS: reviewed HEENT: Head is atraumatic, normocephalic. Pupils equal, round. Sclerae is anicteric. NECK: Supple. No JVD. LUNGS: Clear to auscultation. No wheezes or rhonchi. No intercostal retractions. HEART: Regular rate and rhythm. No murmur. ABDOMEN: Soft No tenderness. EXTREMITIES: No pedal edema. No calf tenderness. NEUROLOGICAL: Patient is awake, alert and oriented x3. Assessment: Bigeminy, frequent PVCs, possibly worsened by electrolyte abnormalities Alcohol withdrawal, DTs requiring intubation Electrolyte abnormalities with hypokalemia and hypomagnesemia as well as metabolic acidosis Acute transaminitis secondary to alcoholism History of alcohol abuse History of seizure disorder Hypertension Tobacco use and dependence Plan: Continue current cardiac medications Patient is agreeable to follow-up with Dr. Hudson in the office for echocardiogram and possible stress testing Patient is cleared for discharge from cardiology. Smoking cessation, patient will be provided with the [place] quit line information Alcohol cessation Thank you kindly for this consultation. Nurse practitioner note has been reviewed, I agree with documented findings and plan of care. Patient was seen and examined. Past Medical History Past Medical History: GERD/Reflux, Seizure Disorder Additional Past Medical History / Comment(s): Alcohol abuse 15-20 beers/day and 1 pint vodka/day, current smoker 1.5 packs/day History of Any Multi-Drug Resistant Organisms: None Reported Past Anesthesia/Blood Transfusion Reactions: No Reported Reaction Smoking Status: Current every day smoker Past Alcohol Use History: Daily, Heavy Past Drug Use History: Marijuana Medications and Allergies Home Medications Medication Instructions Recorded Confirmed Type Acetaminophen Tab [Tylenol] 650 mg PO Q4H PRN 03/02/24 03/02/24 History Calcium, Magnesium, Zinc, With 1 tab PO TID PRN 03/02/24 03/02/24 History Vitamin D3 Chlorpheniramine Maleate 4 mg PO Q4H PRN 03/02/24 03/02/24 History [Chlor-Trimeton] Cholecalciferol (Vitamin D3) 1,250 mcg PO Q7D 03/02/24 03/02/24 History [Decara (50,000 Iu)] Escitalopram [Lexapro] 10 mg PO DAILY 03/02/24 03/02/24 History Hyoscyamine Sulfate [Levsin] 0.125 mg PO QID PRN 03/02/24 03/02/24 History Ibuprofen [Motrin Ib] 600 mg PO Q6H PRN 03/02/24 03/02/24 History LORazepam [Ativan] 1 - 2 mg PO DIRECTED 03/02/24 03/02/24 History Loperamide HCl [Imodium A-D] 4 mg PO QID PRN MDD 16 mg 03/02/24 03/02/24 History Melatonin 10 mg PO HS 03/02/24 03/02/24 History Omeprazole 20 mg PO BID PRN 03/02/24 03/02/24 History Primidone [Mysoline] 50 mg PO DAILY 03/02/24 03/02/24 History SUMAtriptan succinate [Imitrex] 100 mg PO BID PRN MDD 200 mg 03/02/24 03/02/24 H istory cloNIDine HCL [Catapres] 0.1 - 0.3 mg PO Q4H PRN 03/02/24 03/02/24 History levETIRAcetam [Keppra] 750 mg PO BID 03/02/24 03/02/24 History ondansetron HCL [Zofran] 8 mg PO Q6H PRN 03/02/24 03/02/24 History Allergies Allergy/AdvReac Type Severity Reaction Status Date / Time No Known Allergies Allergy Verified 03/02/24 09:16 Physical Exam Vitals: Vital Signs Temp Pulse Pulse Resp BP BP Pulse Ox 03/12/24 08:00 97.8 F 63 18 162/90 98 03/12/24 02:01 98.1 F 67 17 116/74 98 03/11/24 19:25 98.6 F 71 16 115/74 95 03/11/24 14:00 98.1 F 77 15 118/77 Intake and Output 03/11/24 03/12/24 03/12/24 22:59 06:59 14:59 Intake Total 0 Output Total 400 Balance -400 Intake: Oral 0 Output: Urine 400 Other: # Voids 2 1 Results 03/12/24 07:10 03/12/24 07:10 Cardiac Enzymes 03/12/24 Range/Units 07:10 AST 200 H (14-35) U/L CBC 03/12/24 Range/Units 07:10 WBC 9.22 (4.50-10.00) X 10*3/uL RBC 4.03 L (4.40-5.60) X 10*6/uL Hgb 11.9 L (13.0-17.0) g/dL Hct 36.2 L (39.6-50.0) % Plt Count 313 (140-440) X 10*3/uL Comprehensive Metabolic Panel 03/12/24 Range/Units 07:10 Sodium 138 (135-145) mmol/L Potassium 3.7 (3.5-5.5) mmol/L Chloride 102 (96-109) mmol/L Carbon Dioxide 22.7 (21.6-31.8) mmol/L BUN 8.1 L (9.0-27.0) mg/dL Creatinine 0.4 L (0.6-1.5) mg/dL Glucose 89 (70-110) mg/dL Calcium 9.1 (8.7-10.3) mg/dL AST 200 H (14-35) U/L ALT 170 H (10-49) U/L Alkaline Phosphatase 79 (41-126) U/L Total Protein 6.6 (6.2-8.2) g/dL Albumin 3.9 (3.8-4.9) g/dL Current Medications Generic Name Dose Route Start Last Admin Trade Name Freq PRN Reason Stop Dose Admin Acetaminophen 650 mg 03/05/24 08:45 03/07/24 12:42 Acetaminophen Tab 325 Mg Tab PO 650 mg Q6HR PRN Administration Fever and/ or Pain Clonidine 0.1 mg 03/07/24 09:00 03/12/24 09:56 Clonidine Hcl 0.1 Mg Tab PO 0.1 mg BID BIJU Administration Dextrose/Water 25 ml 03/04/24 17:50 03/04/24 18:04 Dextrose 50% Syringe 50 Ml IVP 25 ml PER PROTOCOL PRN Administration Hypoglycemia Protocol Dextrose/Water 50 ml 03/04/24 17:50 Dextrose 50% Syringe 50 Ml IVP PER PROTOCOL PRN Hypoglycemia Protocol Enoxaparin Sodium 40 mg 03/07/24 09:00 03/12/24 09:51 Enoxaparin 40 Mg/0.4 Ml Syringe SQ 40 mg DAILY BIJU Administration Escitalopram Oxalate 10 mg 03/03/24 09:00 03/12/24 11:14 Escitalopram 10 Mg Tab PO 10 mg DAILY BIJU Administration Hydralazine HCl 10 mg 03/03/24 16:58 03/08/24 00:30 Hydralazine Hcl 20 Mg/Ml 1 Ml Vial IVP 10 mg Q4HR PRN Administration Blood Pressure - High Sodium Chloride 1,000 mls @ 10 mls/hr 03/02/24 14:30 03/12/24 00:36 Saline 0.9% IV Not Given .Q24H BIJU Levetiracetam 750 mg 03/12/24 09:30 03/12/24 09:50 Levetiracetam 750 Mg Tab PO 750 mg BID BIJU Administration Lorazepam 1 mg 03/02/24 06:52 03/03/24 16:18 Lorazepam 2 Mg/Ml Inj IV 1 mg Q2HR PRN Administration CIWA 8 or 9 Lorazepam 1 mg 03/02/24 06:52 03/04/24 02:32 Lorazepam 2 Mg/Ml Inj IV 1 mg Q1HR PRN Administration CIWA 10 to 15 Metoprolol Tartrate 25 mg 03/12/24 11:15 03/12/24 11:14 Metoprolol Tartrate 25 Mg Tab PO 25 mg BID BIJU Administration Miscellaneous Information 1 each 03/08/24 03:32 Potassium Replacement Protocol 1 Each [facility] [place] DAILY PRN Per Protocol Protocol Miscellaneous Information 1 each 03/10/24 09:45 Magnesium Replacement Protocol 1 Each [facility] [place] DAILY PRN Per Protocol Protocol Naloxone HCl 0.2 mg 03/02/24 06:53 Naloxone 0.4 Mg/Ml 1 Ml Vial IV Q2M PRN Opioid Reversal Nicotine 1 patch 03/05/24 06:30 03/12/24 09:51 Nicotine 21mg/24hr Patch TRANSDERM 1 patch DAILY BIJU Administration Ondansetron HCl 4 mg 03/02/24 06:53 Ondansetron 4 Mg/2 Ml Vial IVP Q8HR PRN Nausea And Vomiting Pantoprazole Sodium 40 mg 03/03/24 09:00 03/12/24 09:51 Pantoprazole 40 Mg/10 Ml Vial IV 40 mg DAILY BIJU Administration Pantoprazole Sodium 40 mg 03/11/24 14:33 Pantoprazole 40 Mg Tablet PO BID PRN acid reflux Primidone 50 mg 03/12/24 09:00 03/12/24 09:51 Primidone 50 Mg Tab PO 50 mg DAILY BIJU Administration Quetiapine Fumarate 25 mg 03/07/24 23:15 03/11/24 20:40 Quetiapine 25 Mg Tab PO 25 mg HS BIJU Administration Sumatriptan Succinate 100 mg 03/11/24 14:33 Sumatriptan Succinate 50 Mg Tab PO BID PRN Migraine Headache Thiamine HCl 100 mg 03/12/24 09:30 03/12/24 09:51 Thiamine 100 Mg Tab PO 100 mg BID BIJU Administration Intake and Output 06/03/12/24 03/12/24 22:59 06:59 14:59 Intake Total 0 Output Total 400 Balance -400 Intake: Oral 0 Output: Urine 400 Other: # Voids 2 1 03/12/24 07:10 03/12/24 07:10
--- NOTE | 2024-03-12 16:10 | P.DS ---
Providers Date of admission: 03/02/24 06:54 Expected date of discharge: 03/12/24 Attending physician: Angy Pitts Consults: 03/02/24 11:13 Consult Physician Routine Consulting Provider: Frank Stephens Consult Reason/Comments: Hallucination, alcohol detox Do you want consulting provider notified?: Yes 03/02/24 14:06 Consult Physician Stat Consulting Provider: Richar Prakash Consult Reason/Comments: icu management Do you want consulting provider notified?: Already Contacted 03/12/24 11:07 Consult Physician Stat Consulting Provider: Adolfo Hudson Consult Reason/Comments: bigeminy Do you want consulting provider notified?: Yes Primary care physician: Stated None Hospital Course: Final diagnosis Acute hypoxic respiratory failure secondary to delirium tremens from alcohol withdrawal Alcohol abuse was at rehab having increased hallucinations Impending DTs Hypomagnesemia, improved Bigeminy noted on EKG and telemetry with frequent PVCs likely secondary to elec trolyte abnormalities Hyponatremia Hypokalemia Thrombocytopenia secondary to alcohol use History of seizure disorder, likely alcohol induced Continued ongoing nicotine dependence Acute transaminitis GI prophylaxis DVT prophylaxis Full code Discharge disposition Patient is being discharged in a stable condition with guarded prognosis to home. Patient will follow-up with Dr. Filiberto Webb in the outpatient setting upon discharge. Patient is to continue with current medications and close outpatient follow-up with cardiology as scheduled. Patient was at [facility] although going home and plans on following up in the outpatient setting with another inpatient alcohol rehab. Total time taken is greater than 35 minutes. Hospital course This is a 43-year-old male who was recently admitted with severe alcohol withdrawal from [facility] rehab significant hallucinations. Patient spent significant hospitalization in the ICU with increased agitation and ongoing delirium tremens requiring intubation. Patient was started on prophylactic antibiotics having low-grade temps and prolonged hospitalization resulting in generalized weakness with gait dysfunction. Patient was transferred out of the ICU evaluated by physical therapy initially doing poorly although has been working with them daily and now is up and walking without a walker with standby assist. Patient plans on following up in the outpatient setting for inpatient alcohol rehab other than [facility]. Alexia at the bedside with questions and concerns that were answered. Patient also evaluated by cardiology as there was noted hypertension and bigeminy on telemetry. EKG shows normal sinus and patient will follow-up with cardiology in the outpatient setting for an echo along with possible stress testing in the next 1 to 2 weeks. Patient has been cleared by consultations for discharge. Please refer to other consultation notes for further HPI. Currently no reports of chest pain, shortness of breath, or palpitations. Patient is afebrile. No reports of nausea or vomiting and patient is tolerating diet. Patient will be discharged home today. Risk for readmission given patient's continued alcohol abuse Physical exam: Gen: This is a 43-year-old male who is awake, alert and oriented x 3, well- developed, well-nourished HEENT: Head is atraumatic, normocephalic. Pupils equal, round. Sclerae is anicteric. NECK: Supple. No JVD. No lymphadenopathy. No thyromegaly. LUNGS: Clear to auscultation. No wheezes or rhonchi. No intercostal retractions. HEART: S1, S2 are muffled ABDOMEN: Soft. Bowel sounds are present. No masses. No tenderness. EXTREMITIES: No pedal edema. No calf tenderness. NEUROLOGICAL: Patient is awake, alert and oriented x3. Cranial nerves 2 through 12 are grossly intact. diffusely weak Please refer to medication reconciliation sheet for a list of medications. The impression and plan of care has been dictated by Karina Gutierrez, Nurse Practitioner as directed. Dr. Hong MD I have performed a history and examination and MDM of this patient, discussed the same with the dictator, and agree with the dictator's assessment and plan as written ,documented as a scribe. Based on total visit time, I have performed more than 50% of the visit. Patient Condition at Discharge: Fair Plan - Discharge Summary Discharge Rx Participant: No New Discharge Prescriptions: New cloNIDine HCL [Catapres] 0.1 mg PO BID #60 tab QUEtiapine [SEROquel] 25 mg PO HS #30 tab Thiamine [Vitamin B-1] 100 mg PO BID #60 tab Nicotine 21Mg/24Hr Patch [Habitrol] 1 patch TRANSDERM DAILY patch Escitalopram [Lexapro] 10 mg PO DAILY #30 tab Metoprolol Tartrate [Lopressor] 25 mg PO BID #60 tab Continue ondansetron HCL [Zofran] 8 mg PO Q6H PRN PRN Reason: Nausea Loperamide HCl [Imodium A-D] 4 mg PO QID PRN MDD 16 mg PRN Reason: Loose Stool Ibuprofen [Motrin Ib] 600 mg PO Q6H PRN PRN Reason: Pain Or Fever > 100.5 Chlorpheniramine Maleate [Chlor-Trimeton] 4 mg PO Q4H PRN PRN Reason: Allergy Symptoms levETIRAcetam [Keppra] 750 mg PO BID Omeprazole 20 mg PO BID PRN PRN Reason: acid reflux Acetaminophen Tab [Tylenol] 650 mg PO Q4H PRN PRN Reason: Pain Or Fever > 100.5 Melatonin 10 mg PO HS Hyoscyamine Sulfate [Levsin] 0.125 mg PO QID PRN PRN Reason: cramps Calcium, Magnesium, Zinc, With Vitamin D3 1 tab PO TID PRN PRN Reason: cramps/withdrawl symptoms SUMAtriptan succinate [Imitrex] 100 mg PO BID PRN MDD 200 mg PRN Reason: Migraine Headache Primidone [Mysoline] 50 mg PO DAILY Cholecalciferol (Vitamin D3) [Decara (50,000 Iu)] 1,250 mcg PO Q7D Discontinued LORazepam [Ativan] 1 - 2 mg PO DIRECTED cloNIDine HCL [Catapres] 0.1 - 0.3 mg PO Q4H PRN PRN Reason: bp greater than 160/100 Escitalopram [Lexapro] 10 mg PO DAILY Discharge Medication List Acetaminophen Tab [Tylenol] 650 mg PO Q4H PRN 03/02/24 [History] Calcium, Magnesium, Zinc, With Vitamin D3 1 tab PO TID PRN 03/02/24 [History] Chlorpheniramine Maleate [Chlor-Trimeton] 4 mg PO Q4H PRN 03/02/24 [History] Cholecalciferol (Vitamin D3) [Decara (50,000 Iu)] 1,250 mcg PO Q7D 03/02/24 [History] Hyoscyamine Sulfate [Levsin] 0.125 mg PO QID PRN 03/02/24 [History] Ibuprofen [Motrin Ib] 600 mg PO Q6H PRN 03/02/24 [History] Loperamide HCl [Imodium A-D] 4 mg PO QID PRN MDD 16 mg 03/02/24 [History] Melatonin 10 mg PO HS 03/02/24 [History] Omeprazole 20 mg PO BID PRN 03/02/24 [History] Primidone [Mysoline] 50 mg PO DAILY 03/02/24 [History] SUMAtriptan succinate [Imitrex] 100 mg PO BID PRN MDD 200 mg 03/02/24 [History] levETIRAcetam [Keppra] 750 mg PO BID 03/02/24 [History] ondansetron HCL [Zofran] 8 mg PO Q6H PRN 03/02/24 [History] Escitalopram [Lexapro] 10 mg PO DAILY #30 tab 03/12/24 [Rx] Metoprolol Tartrate [Lopressor] 25 mg PO BID #60 tab 03/12/24 [Rx] Nicotine 21Mg/24Hr Patch [Habitrol] 1 patch TRANSDERM DAILY patch 03/12/24 [Rx] QUEtiapine [SEROquel] 25 mg PO HS #30 tab 03/12/24 [Rx] Thiamine [Vitamin B-1] 100 mg PO BID #60 tab 03/12/24 [Rx] cloNIDine HCL [Catapres] 0.1 mg PO BID #60 tab 03/12/24 [Rx] Follow up Appointment(s)/Referral(s): Adolfo Hudson MD [Medical Doctor] - 2 Weeks (the office will call you for a follow up appointment with Dr. Hudson ) [facility], [NON-STAFF] - 1 Week ([facility] will call you to arrange a visit) Patient Instructions/Handouts: Alcohol Withdrawal (ED) Activity/Diet/Wound Care/Special Instructions: PCP: Dr. Chelsea Webb [id number], [place] [address] Activity limited until follow-up Follow-up with primary care provider on discharge Follow-up with cardiology in 1 to 2 weeks for outpatient echo and stress testing Continue taking medications as prescribed Strongly encourage patient for inpatient alcohol rehab Avoid all alcohol use and exposure Avoid Marijuana use and exposure Discharge/Stand Alone Forms: AA Meetings [address] - [facility], AA Meetings [place], [facility] Resources, Outpatient Counseling, In Substance Abuse Facilities Discharge Disposition: HOME SELF-CARE
== END 2024-03-12 14:26 | disposition home health service (06) | DRG 775 ==
LOC: EC 00:15 → 4SSUR 06:54 → 2SICU 14:29 → 6NMEDSUR 03-08 16:36
PROVIDERS: ADMIT Hospitalist; ATTEND Hospitalist
PROC: HZ2ZZZZ Detoxification Services for Substance Abuse Treatment (ICD-10-PCS; 2024-03-02)
PROC: 5A1945Z Respiratory Ventilation, 24-96 Consecutive Hours (ICD-10-PCS; principal; 2024-03-03)
PROC: 0BH17EZ Insertion of Endotracheal Airway into Trachea, Via Natural or Artificial Opening (ICD-10-PCS; 2024-03-03)
DX: F10.231 Alcohol dependence with withdrawal delirium (principal); J96.01 Acute respiratory failure with hypoxia; E87.20 Acidosis, unspecified; D69.59 Other secondary thrombocytopenia; K70.9 Alcoholic liver disease, unspecified; G40.909 Epilepsy, unspecified, not intractable, without status epilepticus; E87.1 Hypo-osmolality and hyponatremia; I10 Essential (primary) hypertension; F32.A Depression, unspecified; E83.42 Hypomagnesemia; I49.3 Ventricular premature depolarization; K21.9 Gastro-esophageal reflux disease without esophagitis; R26.9 Unspecified abnormalities of gait and mobility; E87.6 Hypokalemia; F17.210 Nicotine dependence, cigarettes, uncomplicated; Z71.6 Tobacco abuse counseling; Z79.899 Other long term (current) drug therapy; Z71.3 Dietary counseling and surveillance
CPT/HCPCS: 36415; 71045; 80048; 80053; 81003; 82805; 83036; 83605; 83735; 84100; 84132; 84145; 85025; 87040; 87070; 87205; 93005; 94002; 94003; 96361; 96374; 96376; 99285